=== PATIENT | female | born 1965 | race Caucasian/White ===

== ENCOUNTER → 2018-02-17 11:01 | Outpatient (CLI) | payer OTHER, SELFPAY ==
[2018-02-17 11:34] LABS: Add Manual Diff / Slide Review NO; Basophils Percent Auto 0.2 % (0-2); Eosinophils Percent Auto 1.3 % (2-4); Hematocrit 46.8 % (36-46); Lymphocytes Percent Auto 27.1 % (25-40); Mean Corpuscular HGB Conc 34.1 % (30-36); Mean Corpuscular Volume 87.8 fL (80-100); Monocytes Percent Auto 6.2 % (3-14); Neutrophils Absolute Auto 4500 /uL (3000-5900); Neutrophils Percent Auto 65.2 % (50-75); Platelet Count 287 X10^3/uL (150-400); Red Blood Cell Count 5.33 X10^6/uL (4.0-5.2); Red Cell Distribution Width 13.4 % (11.6-14.8); White Blood Cell Count 6.9 X10^3/uL (4.5-11.0)
[2018-02-17 11:58] LABS: Alanine Aminotransferase 34 IU/L (9-52); Albumin 4.1 g/dL (3.5-5.0); Albumin Globulin Ratio 1.4 (1.0-2.8); Alkaline Phosphatase 62 U/L (38-126); Aspartate Aminotransferase 24 IU/L (14-36); BUN Creatinine Ratio 18.6 (6-22); Bilirubin Total 0.6 mg/dL (0.2-1.3); Blood Urea Nitrogen 13 mg/dL (7-17); Carbon Dioxide 32 mmol/L (22-32); Chloride 106 mmol/L (98-107); Estimated Glomerular Filt Rate > 60.0 mL/min (>60); Glucose 103 mg/dL (70-100); HEMOLYSIS < 15 (0-50); Potassium 3.8 mmol/L (3.4-5.1); Sodium 144 mmol/L (137-145); Total Protein 7.1 g/dL (6.3-8.2)
[2018-02-18 15:52] LABS: Cancer Antigen 27.29 9 U/mL (< 38)
== END ==
PROVIDERS: Family Provider Family Medicine; PCP Family Medicine; Visit Provider Nurse Practitioner Gerontology
DX: Z08 Encounter for follow-up examination after completed treatment for malignant neoplasm (principal); Z85.3 Personal history of malignant neoplasm of breast
CPT/HCPCS: 36415; 80053; 85025; 86300

== ENCOUNTER → 2018-03-05 09:25 | Outpatient (CLI) | payer OTHER, SELFPAY ==
[2018-03-05 11:15] LABS: BUN Creatinine Ratio 13.8 (6-22); Blood Urea Nitrogen 11 mg/dL (7-17); Calcium 9.1 mg/dL (8.4-10.2); Carbon Dioxide 33 mmol/L (22-32); Chloride 102 mmol/L (98-107); Estimated Glomerular Filt Rate > 60.0 mL/min (>60); Glucose 106 mg/dL (70-100); HEMOLYSIS < 15 (0-50); Potassium 3.4 mmol/L (3.4-5.1); Sodium 144 mmol/L (137-145)
== END ==
PROVIDERS: PCP Family Medicine; Visit Provider Family Medicine
DX: L02.91 Cutaneous abscess, unspecified (principal)
CPT/HCPCS: 36415; 80048

== ENCOUNTER → 2018-04-02 08:21 | Outpatient (CLI) | payer OTHER, SELFPAY ==
[2018-04-02 08:33] LABS: Bacteria Urine None Seen; RBC Urine None Seen (0-5/HPF)
[2018-04-02 09:00] LABS: Appearance Urine UA CLOUDY; Bilirubin Urine UA NEGATIVE (NEGATIVE); Color Urine UA YELLOW; Glucose Urine UA NEGATIVE (Normal); Ketones Urine UA TRACE (NEGATIVE); Leukocyte Esterase Urine UA NEGATIVE (NEGATIVE); Nitrite Urine UA NEGATIVE (Negative); Occult Blood Urine UA TRACE-LYSED (Negative); Protein Urine UA TRACE (Negative); Specific Gravity Urine UA 1.025 (1.000-1.035); pH Urine UA 5.5 (4.5-8.0)
[2018-04-02 09:04] LABS: Culture Indicated Urine Cult Not Indicated; Squamous Epithelial Cell Urine 5-10 /HPF; WBC Urine 5-10/HPF (0-5/HPF)
== END ==
PROVIDERS: Obstetrics & Gynecology; Family Provider Family Medicine; PCP Family Medicine; Visit Provider Family Medicine
DX: N39.0 Urinary tract infection, site not specified (principal)
CPT/HCPCS: 81001

== ENCOUNTER → 2018-04-10 14:47 | Outpatient (CLI) | payer OTHER, SELFPAY ==
[2018-04-10 15:47] LABS: Cancer Antigen 125 6 U/mL (0-35)
== END ==
PROVIDERS: PCP Family Medicine; Visit Provider Obstetrics & Gynecology
DX: R14.0 Abdominal distension (gaseous) (principal)
CPT/HCPCS: 86304

== ENCOUNTER → 2018-06-23 11:11 | Outpatient (CLI) | payer OTHER, SELFPAY ==
[2018-06-23 11:45] LABS: Hemoglobin A1C% w Est Avg Glu 5.4 % (4.0-6.0)
[2018-06-23 12:35] LABS: Free T3, Triiodothyronine Free 3.13 pg/mL (2.77-5.27); Free T4, Direct Thyroxine 1.57 ng/dL (0.78-2.19)
[2018-06-23 12:49] LABS: Thyroid Stimulating Hormone 0.41 uIU/mL (0.47-4.68)
[2018-06-25 14:11] LABS: Thyroid Peroxidase Antibodies 1 IU/mL (< 9)
[2018-06-27 08:12] LABS: Triiodothyronine T3 Reverse 17 ng/dL (8-25)
== END ==
PROVIDERS: Family Provider Family Medicine; PCP Family Medicine; Visit Provider Family Medicine
DX: E03.9 Hypothyroidism, unspecified (principal)
CPT/HCPCS: 36415; 83036; 84439; 84443; 84481; 84482; 86376

== ENCOUNTER → 2018-10-10 13:12 | Outpatient (CLI) | payer OTHER, SELFPAY ==
[2018-10-10 13:32] LABS: Add Manual Diff / Slide Review NO; Basophils Absolute Auto 100 /uL (0-100); Basophils Percent Auto 1.3 % (0-2); Eosinophils Absolute Auto 100 /uL (0-450); Eosinophils Percent Auto 1.3 % (2-4); Hematocrit 48.3 % (36-46); Hemoglobin 16.1 g/dL (12.0-16.0); Lymphocytes Absolute Auto 2500 /uL (1100-4500); Lymphocytes Percent Auto 31.8 % (25-40); Mean Corpuscular HGB Conc 33.4 % (30-36); Mean Corpuscular Hemoglobin 29.5 PG (26-34); Mean Corpuscular Volume 88.5 fL (80-100); Monocytes Absolute Auto 500 /uL (0-900); Monocytes Percent Auto 6.4 % (3-14); Neutrophils Absolute Auto 4700 /uL (1500-7000); Neutrophils Percent Auto 59.2 % (50-75); Platelet Count 325 X10^3/uL (150-400); Red Blood Cell Count 5.45 X10^6/uL (4.0-5.2); Red Cell Distribution Width 13.9 % (11.6-14.8); White Blood Cell Count 7.9 X10^3/uL (4.5-11.0)
[2018-10-10 13:50] LABS: Alanine Aminotransferase 29 IU/L (9-52); Albumin 4.4 g/dL (3.5-5.0); Albumin Globulin Ratio 1.4 (1.0-2.8); Alkaline Phosphatase 74 U/L (38-126); Aspartate Aminotransferase 26 IU/L (14-36); BUN Creatinine Ratio 18.9 (6-22); Bilirubin Total 0.3 mg/dL (0.2-1.3); Blood Urea Nitrogen 17 mg/dL (7-17); Calcium 9.4 mg/dL (8.4-10.2); Carbon Dioxide 30 mmol/L (22-32); Chloride 98 mmol/L (98-107); Cholesterol 253 mg/dL (140-199); Estimated Glomerular Filt Rate > 60.0 mL/min (>60); Globulin 3.1 g/dL (1.7-4.1); Glucose 105 mg/dL (70-100); HDL Cholesterol 48 mg/dL (40-60); HEMOLYSIS < 15 (0-50); LDL Cholesterol Calculated 169 mg/dL (<100); Potassium 4.2 mmol/L (3.4-5.1); Sodium 138 mmol/L (137-145); Total Protein 7.5 g/dL (6.3-8.2); Triglycerides 180 mg/dL (35-150)
[2018-10-10 14:20] LABS: TSH w/ Reflex to FT4 0.49 uIU/mL (0.47-4.68)
== END ==
PROVIDERS: PCP Family Medicine; Visit Provider Family Medicine
DX: E03.9 Hypothyroidism, unspecified (principal); I10 Essential (primary) hypertension; K76.0 Fatty (change of) liver, not elsewhere classified
CPT/HCPCS: 36415; 80053; 80061; 84443; 85025

== ENCOUNTER → 2018-10-22 09:00 | Outpatient (CLI) | payer OTHER, SELFPAY ==
--- NOTE | 2018-10-22 | DI.MG.S_ITS ---
BILATERAL DIGITAL SCREENING MAMMOGRAM 3D/2D WITH CAD: 10/22/2018 CLINICAL: Routine screening. Personal history of left breast cancer. Family history of breast cancer. Comparison is made to exams dated: 10/15/2016 mammogram, 10/12/2015 mammogram, 09/01/2014 mammogram, 11/06/2013 mammogram, and 07/07/2013 mammogram - [facility]. The tissue of both breasts is predominantly fatty. Current study was also evaluated with a Computer Aided Detection (CAD) system. There is a 5 mm round mass with a circumscribed margin in the right breast at 1 o'clock posterior depth. Biopsy marker in place in the right breast 3 o'clock position posterior depth. No other significant masses, calcifications, or other findings are seen in either breast. IMPRESSION: INCOMPLETE: NEEDS ADDITIONAL IMAGING EVALUATION The 5 mm round mass in the right breast is indeterminate. A diagnostic mammogram and ultrasound is recommended. This exam was interpreted at Station ID: [id number]. NOTE: For mammograms, a report in lay terms will be sent to the patient. Approximately 15% of breast malignancies will not be visualized mammographically. In the management of a palpable breast mass, a negative mammogram must not discourage biopsy of a clinically suspicious lesion. Electronically Signed By: Ambar barba/:10/22/2018 11:15:01 letter sent: Additional Imaging Needed ACR BI-RADS Category 0: Incomplete 3340F
== END ==
PROVIDERS: PCP Family Medicine; Visit Provider Family Medicine
DX: Z12.31 Encounter for screening mammogram for malignant neoplasm of breast (principal); Z85.3 Personal history of malignant neoplasm of breast; Z80.3 Family history of malignant neoplasm of breast
CPT/HCPCS: 77063; 77067

== ENCOUNTER → 2018-10-28 10:00 | Oncology outpatient (ONC) | payer OTHER, SELFPAY ==
[2018-02-18 10:02] VITALS: BP 136/86; PULSE 98; RESP 17; TEMP 37.3; O2SAT 98
--- NOTE | 2018-02-18 10:03 | ONC.PN ---
PN -Subjective Interval history: Diagnosis: Breast cancer on the left. T1 C N0, 1.3 cm ER/VA negative her 2 positive Previous treatment: 1. Lumpectomy and sentinel node biopsy in September 2011 2. Adjuvant chemotherapy with Taxol and Herceptin. 3. Adjuvant radiation. Interval history: The patient is a 52-year-old woman who is seen today in follow-up. She has history of left-sided ER/VA negative her 2 positive breast cancer that is previously been treated with lumpectomy and radiation with adjuvant Taxol and Herceptin. She completed all of her therapy in 2012. Since then, she has been feeling generally well. Today, she is bothered by some changes in the right breast. The been present for a few months. She notes some itching particularly around the nipple. She has a feeling of heaviness in the breast in some swelling but has not felt any discrete lump. She has not noted any axillary adenopathy. She is not aware of any changes in the left breast. Otherwise, she feels well. She denies any new aches or pains. No shortness of breath or cough. No GI complaints. Her past medical history is notable for prior thought right ectopy she her hysterectomy for fibroids. She did have a DVT during her chemotherapy. Her family history is notable for an aunt on her father's side had breast cancer. There is no other family history of malignancy. 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 She does remain active though. Home Medications and Allergies Home Medications Medication Instructions Recorded Confirmed Type albuterol sulfate [Ventolin HFA] 2 puff INH Q4HP PRN #1 inh 08/01/16 01/01/18 Rx chlorthalidone 25 mg PO QDAY #15 tab 04/17/17 01/01/18 Rx amlodipine 10 mg PO QDAY #90 tab 05/01/17 01/01/18 Rx ondansetron HCl 4 mg PO Q6HP PRN #30 tab 05/22/17 01/01/18 Rx fluticasone 1 spray INTRANASAL BID #16 gm 05/27/17 01/01/18 Rx metoprolol tartrate 50 mg PO BID #180 tab 06/26/17 01/01/18 Rx beclomethasone dipropionate [Qvar] 1 puff INH BID #1 inh 08/19/17 01/01/18 Rx omeprazole 20 mg PO QDAY #30 cap 08/20/17 01/01/18 Rx venlafaxine 75 mg tablet 112.5 mg PO QDAY tab 12/02/17 01/01/18 History spironolactone 100 mg tablet 100 mg PO DAILY #30 tab 01/01/18 Rx levothyroxine 88 mcg PO QDAY #90 tab 01/28/18 Rx clonazepam 1 mg tablet 1 mg PO TID #90 tab 02/03/18 Rx doxepin 25 mg capsule 25 mg PO HS #90 cap 02/03/18 Rx Allergies Allergy/AdvReac Type Severity Reaction Status Date / Time codeine [CODEINE] Allergy Mild itching Verified 01/01/18 13:37 and hives hydrocodone [HYDROCODONE] Allergy Mild itching Verified 01/01/18 13:37 and hives fluticasone [FLUTICASONE] AdvReac Mild irritabilit Verified 01/01/18 13:37 y metoclopramide AdvReac Mild agitated Verified 01/01/18 13:37 [METOCLOPRAMIDE] zolpidem [ZOLPIDEM] AdvReac Mild agitated Verified 01/01/18 13:37 Exam - Constitutional positive no acute distress, positive average body habitus - Routine HEENT Exam Head: Present: normocephalic, atraumatic Eye: Present: EOMI, PERRL. Absent: conjunctival icterus ENT: Present: mucous membranes moist, oropharynx clear - Routine Neck Exam Present: supple. Absent: lymphadenopathy - Routine Chest/Breast/Axilla Exam Comments: Breast exam shows a well-healed incision on the left breast just superior to the nipple. There is some scar tissue in induration in that area but no discrete masses. On the right breast, she does have some fibrocystic changes but no dominant mass. There is no obvious skin lesions. The breasts appear to be symmetric in size. There is no axillary adenopathy on either side. - Routine Respiratory Exam Present: Clear to auscultation bilaterally. Absent: rales, wheezes - Routine Cardiovascular Exam Present: RRR, S1, S2. Absent: murmur - Routine Abdominal Exam Present: soft, normoactive bowel sounds. Absent: tenderness, mass - Routine Extremities Exam Absent: cyanosis, clubbing, edema - Routine Skin Exam Present: intact. Absent: petechiae, rash - Routine Neurological Exam Present: alert, oriented X3 - Routine Psychiatric Exam Present: normal affect, normal thought process Results - Imaging Additional studies: Procedures Incision with removal of foreign body or device from skin and subcutaneous tissue (04/24/12) Laparoscopic removal of both ovaries and tubes at same operative episode (08/27/11) Laparoscopic supracervical hysterectomy [LSH] (08/27/11) Assessment and Plan (1) H/O malignant neoplasm of breast Problem details: This is a 52-year-old woman with the history of stage I her 2 positive breast cancer. She is about 7 years out from her diagnosis. She has no obvious recurrence. 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 She has some changes in sensation in her right breast now. I do not feel any obvious physical exam correlate. Never the less, she is due for a mammogram and will get that scheduled for her. She will return to clinic here for follow-up after that. Assuming that that is negative, I think probably annual follow-up would be indicated. Current visit: Yes Status: Acute
--- NOTE | 2018-02-18 13:06 | ONC.NAV ---
Description: New Pt Intro Activity: Met briefly with pt after her provider visit to introduce myself as the Pt Ru/FURNITURE DIPPER, offer services card, and assess immediate needs. Pt states that she is 5-years out of treatment, and is here to have her other breast checked, due to new/unusual symptoms. She declines the need for any assistance at this time. FURNITURE DIPPER encouraged her to reach out during any future appointments should she need assistance at that time.
[2018-10-28 10:18] VITALS: BP 144/95; PULSE 85; RESP 16; TEMP 36.8; O2SAT 97
--- NOTE | 2018-10-28 10:39 | ONC.PN ---
PN -Subjective Interval history: Diagnosis: Breast cancer on the left. T1 C N0, 1.3 cm ER/IN negative her 2 positive Previous treatment: 1. Lumpectomy and sentinel node biopsy in September 2011 2. Adjuvant chemotherapy with Taxol and Herceptin. 3. Adjuvant radiation. Interval history: The patient is a 52-year-old woman who is seen today in follow-up. Since her last visit here, she has been feeling generally well. She did have some discomfort in itching in the breast at her last visit. A mammogram was recommended but she did not have it done in till earlier this month. Since the procedure, she has had some pain and swelling in the right breast but has not felt any mass. she denies any fevers chills or sweats. Strength and energy level have been low but stable. She denies any shortness of breath. She has not noticed any adenopathy. She denies any other changes in her health. Her past medical history is notable for prior thought right ectopy she her hysterectomy for fibroids. She did have a DVT during her chemotherapy. Her family history is notable for an aunt on her father's side had breast cancer. There is no other family history of malignancy. 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 She does remain active though. - Patient Self-Reported Symptoms SR eye issues: Vision changes SR respiratory issues: Cough, Coughing blood, Shortness of breath, Difficulty breathing, Mucous SR Skin issues: Skin rash or itching SR Neuro issues: Headache, Lightheaded/dizzy, Seizures or convulsions, Numbness or tingling, Tremors or shaking, Difficulty balancing Home Medications and Allergies Home Medications Medication Instructions Recorded Confirmed Type albuterol sulfate [Ventolin HFA] 2 puff INH Q4HP PRN #1 inh 08/01/16 09/17/18 Rx amlodipine 10 mg PO QDAY #90 tab 05/01/17 09/17/18 Rx cholecalciferol (vitamin D3) 2,000 unit PO DAILY 02/18/18 09/17/18 History [Vitamin D3] melatonin 10 mg PO BEDTIME PRN 02/18/18 09/17/18 History omeprazole 20 mg PO PRN PRN 02/18/18 09/17/18 History meloxicam 7.5 mg tablet 7.5 mg PO DAILY #30 tab 03/25/18 09/17/18 Rx gabapentin 100 mg capsule See Rx Instructions PO DAILY #90 04/18/18 09/17/18 Rx cap metoprolol tartrate 50 mg PO BID #180 tab 06/25/18 09/17/18 Rx doxepin 25 mg capsule 25 mg PO HS #90 cap 08/06/18 09/17/18 Rx venlafaxine 75 mg tablet 112.5 mg PO QDAY #135 tab 09/15/18 09/17/18 Rx chlorthalidone 25 mg tablet 12.5 mg PO PRN PRN #15 tab 10/03/18 Rx clonazepam 1 mg tablet 1 mg PO TID #90 tab 10/22/18 Rx levothyroxine 88 mcg tablet 88 mcg PO QDAY #90 tab 10/23/18 Rx Allergies Allergy/AdvReac Type Severity Reaction Status Date / Time codeine [CODEINE] Allergy Mild itching Verified 06/23/18 10:33 and hives hydrocodone [HYDROCODONE] Allergy Mild itching Verified 06/23/18 10:33 and hives fluticasone [FLUTICASONE] AdvReac Mild irritabilit Verified 06/23/18 10:33 y metoclopramide AdvReac Mild agitated Verified 06/23/18 10:33 [METOCLOPRAMIDE] zolpidem [ZOLPIDEM] AdvReac Mild agitated Verified 06/23/18 10:33 Exam Vital signs: Vital Signs Temp Pulse Resp BP Pulse Ox 10/28/18 10:18 98.3 F 85 16 144/95 H 97 Intake and Output 10/27/18 10/28/18 10/28/18 23:59 07:59 15:59 Other: Weight 87.9 kg Patient Weight 10/28/18 23:59 Weight 87.9 kg - Constitutional positive no acute distress, positive average body habitus - Routine HEENT Exam Head: Present: normocephalic, atraumatic - Routine Chest/Breast/Axilla Exam Axillae: Absent: lymphadenopathy Comments: Limited exam of the breast shows that she has a well-healed incision on the left breast. There are no suspicious masses. the right breast is tender to palpation but I do not feel any discrete masses. There is no thickening or erythema the skin. No axillary adenopathy. - Routine Respiratory Exam Present: Clear to auscultation bilaterally. Absent: rales, wheezes - Routine Cardiovascular Exam Present: RRR, S1, S2. Absent: murmur - Routine Abdominal Exam Present: soft, normoactive bowel sounds. Absent: tenderness, organomegaly, mass - Routine Neurological Exam Present: alert, oriented X3 - Routine Psychiatric Exam Present: normal affect, normal thought process Results - Imaging Additional studies: Procedures Incision with removal of foreign body or device from skin and subcutaneous tissue (04/24/12) Laparoscopic removal of both ovaries and tubes at same operative episode (08/27/11) Laparoscopic supracervical hysterectomy [LSH] (08/27/11) Assessment and Plan (1) H/O malignant neoplasm of breast Problem details: This is a 52-year-old woman with the history of stage I her 2 positive breast cancer. She is about 7 years out from her diagnosis. She has no obvious recurrence. 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 Her recent mammogram showed an indeterminate 5 mm area in the right breast. She is scheduled for additional views and an ultrasound on November 07. She will return to clinic in about 3 weeks for follow-up. If her imaging suggests that this is benign, I think we can probably go to annual follow-up after that. If on the other hand additional testing is needed will arrange for follow-up as required. Current visit: No Status: Chronic
--- NOTE | 2019-05-13 08:42 | ONC.SCHED ---
patient called 05/11/19, cancelled her 6 month follow up with Dr Garcia/having an ultrasound and would call and get back on his schedule if the results were not OK. (note to Dr Garcia to look at her u/s results)
--- NOTE | 2019-05-20 16:01 | ONC.SCHED ---
per message/task note between Dr Garcia and myself, he requests she be seen again in October. I left a voice mail today for this patient to call and get scheduled for an annual appointment in October 2019.
== END ==
PROVIDERS: Family Provider Family Medicine; PCP Family Medicine
DX: Z08 Encounter for follow-up examination after completed treatment for malignant neoplasm (principal); Z85.3 Personal history of malignant neoplasm of breast; Z86.718 Personal history of other venous thrombosis and embolism; F17.200 Nicotine dependence, unspecified, uncomplicated
CPT/HCPCS: 99214; 99215

== ENCOUNTER → 2018-11-07 08:55 | Outpatient (CLI) | payer OTHER, SELFPAY ==
--- NOTE | 2018-11-07 08:57 | DI.US.S_ITS ---
LIMITED ULTRASOUND OF RIGHT BREAST: 11/07/2018 CLINICAL: Patient returns today to evaluate a density in the right breast. Comparison is made to exams dated: 11/07/2018 mammogram, 10/22/2018 mammogram, 10/15/2016 mammogram, 10/12/2015 mammogram, 09/01/2014 mammogram, and 11/06/2013 mammogram - [facility]. Real-time and Doppler ultrasound of the right breast 1 o'clock region were performed. Hatfield scale images of the real-time examination were reviewed. Targeted ultrasound of the right breast demonstrates a 0.4 x 0.3 x 0.6 cm oval circumscribed bilobed probable complicated cyst in the right breast at 1:00 position 5 cm from the nipple, which demonstrates low level internal echogenic foci but no vascularity on Doppler ultrasound. IMPRESSION: PROBABLY BENIGN 0.6 cm probable complicated cyst in the right breast at 1:00 position 5 cm from the nipple. A followup mammogram and targeted right breast ultrasound in 6 months is recommended to demonstrate stability. The patient is advised to monitor her breasts and to return sooner for re-evaluation should she feel anything grow or change. This exam was interpreted at Station ID: [id number]. Electronically Signed By: Maycol Patel M.D. ecl/:11/07/2018 12:51:22 copy to: Marilin Johnson copy to: CRISTIAN BRASHER letter sent: Followup Recommended Ultrasound BI-RADS: 3 Probably benign
--- NOTE | 2018-11-07 08:57 | DI.MG.S_ITS ---
UNILATERAL RIGHT DIGITAL DIAGNOSTIC MAMMOGRAM 3D/2D WITH ADDITIONAL VIEWS POST LUMPECTOMY: 11/07/2018 CLINICAL: Additional evaluation requested from prior study. Comparison is made to exams dated: 10/22/2018 mammogram, 10/15/2016 mammogram, and 10/12/2015 mammogram - [facility]. There are scattered fibroglandular elements in right breast. Previously identified 5 mm round mass with a circumscribed margin in the right breast at 1 o'clock posterior depth on comparison screening mammograms of 10/22/2018 persists with additional views. There is redemonstration of a biopsy marker within the left breast. IMPRESSION: INCOMPLETE: NEEDS ADDITIONAL IMAGING EVALUATION Previously identified 5 mm round mass with a circumscribed margin in the right breast at 1 o'clock posterior depth on comparison screening mammograms of 10/22/2018 persists with additional views. A targeted ultrasound is recommended for further evaluation, and will be performed immediately following this exam. This exam was interpreted at Station ID: [id number]. NOTE: For mammograms, a report in lay terms will be sent to the patient. Approximately 15% of breast malignancies will not be visualized mammographically. In the management of a palpable breast mass, a negative mammogram must not discourage biopsy of a clinically suspicious lesion. Electronically Signed By: Maycol Patel M.D. ecl/:11/07/2018 10:04:58 copy to: Marilin Johnson copy to: CRISTIAN APONTE BI-RADS Category 0: Incomplete 3340F
== END ==
PROVIDERS: Family Provider Family Medicine; PCP Family Medicine; Visit Provider Family Medicine
DX: R92.8 Other abnormal and inconclusive findings on diagnostic imaging of breast (principal); N63.12 Unspecified lump in the right breast, upper inner quadrant; Z85.3 Personal history of malignant neoplasm of breast
CPT/HCPCS: 76642; 77065; G0279

== ENCOUNTER → 2018-12-03 06:57 | Outpatient (CLI) | payer OTHER, SELFPAY ==
--- NOTE | 2018-12-03 | DI.US.S_ITS ---
PROCEDURE: US CAROTID DOPPLER BI INDICATIONS: AMAUROSIS FUGAX TECHNIQUE: Color and pulse Doppler interrogation was performed of both carotid systems, with image documentation and velocity measurements. COMPARISON: None. FINDINGS: Stenosis calculations are based on SRU (Society of Radiologists in Ultrasound) criteria. Right side: Brachial blood pressure: 130/88 mm Hg. Common carotid artery peak systolic velocity: 71 cm/sec. Internal carotid artery peak systolic velocity: 59 cm/sec. Internal carotid artery end diastolic velocity: 25 cm/sec. External carotid artery peak systolic velocity: 91 cm/sec. ICA/CCA peak systolic ratio: 0.8. Hatfield scale imaging description: Mild intimal thickening. Percent internal carotid artery stenosis: Less than 50%. Vertebral artery: Flow direction is antegrade. Left side: Brachial blood pressure: 130/86 mm Hg. Common carotid artery peak systolic velocity: 98 cm/sec. Internal carotid artery peak systolic velocity: 80 cm/sec. Internal carotid artery end diastolic velocity: 31 cm/sec. External carotid artery peak systolic velocity: 106 cm/sec. ICA/CCA peak systolic ratio: 0.8. Hatfield scale imaging description: Mild intimal wall thickening. Percent internal carotid artery stenosis: Less than 50%. Vertebral artery: Flow direction is antegrade. IMPRESSION: Less than 50% bilateral internal carotid artery stenosis. Dictated by: Daryl Aguirre [facility] Interpreted: Preet Varela MD on 12/03/2018 at 9:13 Approved by: Preet Varela M.D. on 12/04/2018 at 8:49
== END ==
PROVIDERS: Family Provider Family Medicine; PCP Family Medicine; Visit Provider Ophthalmology
DX: I65.23 Occlusion and stenosis of bilateral carotid arteries (principal)
CPT/HCPCS: 93880

== ENCOUNTER → 2019-03-19 12:13 | Outpatient (CLI) | payer OTHER, SELFPAY ==
--- NOTE | 2019-03-19 12:14 | DI.US.S_ITS ---
PROCEDURE: US PERIPH VENOUS UP EXTREM MYA INDICATIONS: DEEP VEIN THROMBOSIS TECHNIQUE: Real-time imaging, as well as color and pulse Doppler interrogation, was performed of both upper extremity deep veins from the inferior neck to the antecubital fossa. COMPARISON: None. FINDINGS: Right: The internal jugular veins, visualized portions of the subclavian veins, axillary veins, and brachial veins are free of intraluminal thrombus. Where physically possible, the veins are normally compressible. Color and pulse Doppler demonstrate normal intraluminal flow, with expected phasicity and pulsatility. Additional scanning of the cephalic and basilic veins of the superficial system demonstrate normal compressibility, without thrombus. Left: The internal jugular veins, visualized portions of the subclavian veins, axillary veins, and brachial veins are free of intraluminal thrombus. Where physically possible, the veins are normally compressible. Color and pulse Doppler demonstrate normal intraluminal flow, with expected phasicity and pulsatility. Additional scanning of the cephalic and basilic veins of the superficial system demonstrate normal compressibility, without thrombus. IMPRESSION: No DVT found. Dictated by: Preet Varela M.D. on 03/19/2019 at 13:32 Approved by: Preet Varela M.D. on 03/19/2019 at 13:32
== END ==
PROVIDERS: Family Provider Family Medicine; PCP Family Medicine; Visit Provider Family Medicine
DX: I82.629 Acute embolism and thrombosis of deep veins of unspecified upper extremity (principal)
CPT/HCPCS: 93970

== ENCOUNTER → 2019-05-11 09:33 | Outpatient (CLI) | payer OTHER, SELFPAY ==
--- NOTE | 2019-05-11 09:36 | DI.MG.S_ITS ---
UNILATERAL RIGHT DIGITAL DIAGNOSTIC MAMMOGRAM 3D/2D SHORT-TERM FOLLOW-UP: 05/11/2019 CLINICAL: Patient returns for a 6 month follow up of the right breast. Comparison is made to exams dated: 11/07/2018 mammogram, 10/22/2018 mammogram, 10/15/2016 mammogram, 11/07/2018 ultrasound, and 10/12/2015 mammogram - [facility]. There are scattered fibroglandular elements in right breast. There is a 0.4 cm round equal density focal asymmetry with a circumscribed margin in the right breast at 1 o'clock middle depth. This is more prominent. No other significant masses or calcifications are seen in the breast. A right breast biopsy clip is present. IMPRESSION: INCOMPLETE: NEEDS ADDITIONAL IMAGING EVALUATION Focal asymmetry in the right breast is indeterminate. A targeted ultrasound is recommended and will immediately follow. This exam was interpreted at Station ID: [id number]. NOTE: For mammograms, a report in lay terms will be sent to the patient. Approximately 15% of breast malignancies will not be visualized mammographically. In the management of a palpable breast mass, a negative mammogram must not discourage biopsy of a clinically suspicious lesion. Electronically Signed By: Mayo Gutiérrez M.D. slc/:05/11/2019 11:37:06 copy to: Marilin Johnson copy to: CRISTIAN APONTE BI-RADS Category 0: Incomplete 3340F
--- NOTE | 2019-05-11 09:36 | DI.US.S_ITS ---
LIMITED ULTRASOUND OF RIGHT BREAST: 05/11/2019 CLINICAL: 6 month follow-up of cysts. Comparison is made to exams dated: 05/11/2019 mammogram, 11/07/2018 ultrasound, 11/07/2018 mammogram, 10/22/2018 mammogram, and 10/15/2016 mammogram - [facility]. Color flow and real-time ultrasound of the right breast 1 o'clock region were performed. Hatfield scale images of the real-time examination were reviewed. There is a stable 0.5 cm x 0.5 cm x 0.3 cm bilobed cyst in the right breast at 1 o'clock middle depth 5 cm from the nipple. This oval cyst is hypoechoic with a well-defined boundary. This correlates with mammography findings. Color flow imaging demonstrates that there is no vascularity present. IMPRESSION: PROBABLY BENIGN Stable 0.5 cm bilobed cyst in the right breast is consistent with a complicated cyst and is probably benign. A follow-up mammogram and an ultrasound in 6 months is recommended to demonstrate stability. Exam findings were conveyed to the patient by the special makeup fx artist instructor. This exam was interpreted at Station ID: [id number]. Electronically Signed By: Mayo Gutiérrez M.D. slc/:05/11/2019 12:06:04 copy to: Marilin Johnson copy to: CRISTIAN BRASHER letter sent: Followup Recommended Ultrasound BI-RADS: 3 Probably benign
== END ==
PROVIDERS: PCP Family Medicine; Visit Provider Family Medicine
DX: R92.8 Other abnormal and inconclusive findings on diagnostic imaging of breast (principal); N60.01 Solitary cyst of right breast; Z85.3 Personal history of malignant neoplasm of breast
CPT/HCPCS: 76642; 77065; G0279

== ENCOUNTER 2019-07-13 08:10 | Emergency (ER) | payer OTHER, SELFPAY ==
[2019-07-13 08:25] VITALS: BP 172/98; PULSE 127; RESP 22; TEMP 36.8; O2SAT 97; BMI 29.9
--- NOTE | 2019-07-13 08:45 | ED_ITS ---
HPI - Chest Pain General Chief Complaint: Chest Pain Stated Complaint: dehydration, unable to urinate,diarrhea Time Seen by Provider: 07/13/19 08:22 Source: patient Mode of arrival: Ambulatory Limitations: no limitations History of Present Illness HPI narrative: Patient is a 53-year-old female who presents with a variety of complaints. She is currently quite anxious she is going through divorce after 31 years. She by law needs to stay in the house however being in the house causes her quite a bit of anxiety she stayed in her car multiple times. She has about 5 episodes of diarrhea daily she has intermittent episodes of chest pain which she relates to her anxiety. She does not eat or drink anything in fact she has not urinated since yesterday she noted to be tachycardic is in the 120s in the emergency department. She tried to see her PCP for anxiety medication however she was told she needs to go to the emergency department. She denies any abdominal pain. She denies any dizziness lightheadedness syncope or passing out. MD complaint: chest pain Onset (ago): week(s) Duration: intermittent Related Data Home Medications Medication Instructions Recorded Confirmed cholecalciferol (vitamin D3) 2,000 unit PO DAILY 02/18/18 05/28/19 [Vitamin D3] melatonin 10 mg PO BEDTIME PRN 02/18/18 05/28/19 omeprazole 20 mg PO PRN PRN 02/18/18 05/28/19 aspirin 81 mg tablet,delayed 81 mg PO DAILY 03/16/19 05/28/19 release amlodipine 10 mg PO DAILY 07/13/19 07/13/19 doxepin 25 mg PO BEDTIME 07/13/19 07/13/19 levothyroxine 88 mcg PO DAILY 07/13/19 07/13/19 Previous Rx's Medication Instructions Recorded chlorthalidone 25 mg tablet 12.5 mg PO PRN PRN #15 tab 10/03/18 venlafaxine 75 mg tablet 112.5 mg PO QDAY #135 tab 03/02/19 metoprolol tartrate 50 mg tablet 50 mg PO BID #180 tab 06/04/19 clonazepam 1 mg tablet 1 mg PO TID #90 tab 07/06/19 lorazepam [Ativan] 0.5 mg PO DAILY PRN #2 tab 07/13/19 Allergies Allergy/AdvReac Type Severity Reaction Status Date / Time atorvastatin Allergy Severe Anaphylaxis Verified 07/13/19 08:25 codeine [CODEINE] Allergy Mild itching Verified 07/13/19 08:25 and hives hydrocodone [HYDROCODONE] Allergy Mild itching Verified 07/13/19 08:25 and hives fluticasone [FLUTICASONE] AdvReac Mild irritabilit Verified 07/13/19 08:25 y metoclopramide AdvReac Mild agitated Verified 07/13/19 08:25 [METOCLOPRAMIDE] zolpidem [ZOLPIDEM] AdvReac Mild agitated Verified 07/13/19 08:25 Review of Systems Review of Systems ROS Unobtainable: All systems reviewed & are unremarkable except as noted in HPI and below Constitutional Constitutional: Reports anorexia, Denies body ache(s), Denies chills, Denies fatigue, Denies fever(s) and Reports poor appetite Eyes Eyes: Denies change in vision, Denies eye discharge, Denies irritation and Denies loss of vision ENT Ears, Nose, Mouth, and Throat: Denies change in voice, Denies neck pain and Denies sore throat Cardiovascular Cardiovascular: Denies chest pain, Denies irregular heart rhythm, Denies lightheadedness, Denies palpitations, Denies dyspnea, Denies dyspnea on exertion and Denies orthopnea Respiratory Respiratory: Denies cough, Denies dyspnea, Denies dyspnea on exertion and Denies wheezing Gastrointestinal Gastrointestinal: Reports as per HPI, Denies abdominal pain, Reports diarrhea, Reports nausea and Denies vomiting Genitourinary Genitourinary: Denies hematuria, Denies flank pain, Denies urinary incontinence and Denies urinary urgency Musculoskeletal Musculoskeletal: Denies neck pain Integumentary/Breasts Skin/Breast: Denies pruritus, Denies erythema, Denies rash and Denies wounds Neurologic Neurologic: Denies loss of vision Endocrine Endocrine: Denies fatigue and Denies palpitations Allergic/Immunologic Allergic/Immunologic: Denies wheezing Patient History Medical History Acquired hypothyroidism (Chronic 12/17/12) Anxiety (Chronic) Asthma (Chronic) Breast cancer (Resolved) Deep vein thrombosis (DVT) of upper extremity (Resolved 05/05/14) Depression (Chronic 05/05/14) DVT (deep venous thrombosis) (Chronic ~2011) Generalized anxiety disorder (Chronic) GERD (gastroesophageal reflux disease) (Chronic) H/O malignant neoplasm of breast (Chronic) Hirsutism (Chronic) Hypertension (Chronic) Hypothyroidism (Chronic) Ingrown hair (Chronic) Insomnia (Chronic) Intramural leiomyoma of uterus (Resolved) Kidney stones (Chronic) Kidney stones, calcium oxalate (Acute) 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) Posttraumatic stress disorder (Chronic 06/30/14) Pyelonephritis (Resolved) Seasonal allergic rhinitis (Chronic 10/29/14) Sleep apnea in adult (Chronic 12/13/14) Steatosis of liver (Chronic 03/07/15) Tobacco use disorder (Chronic 08/29/16) Surgical History History of lumpectomy History of third molar tooth extraction History of thyroidectomy History of ureter stent (Acute) Status post laparoscopic cholecystectomy Status post laparoscopic supracervical hysterectomy Status post tonsillectomy and adenoidectomy Social History Smoking Status: Current every day smoker quit status: considering quitting Smoking Status: Current every day smoker Exam Initial Vital Signs Initial Vital Signs: Vital Signs Temperature 98.3 F 07/13/19 08:25 Pulse Rate 127 H 07/13/19 08:25 Respiratory Rate 22 07/13/19 08:25 Blood Pressure 172/98 H 07/13/19 08:25 Pulse Oximetry 97 07/13/19 08:25 GENERAL: Very anxious middle-aged female HEENT: Head atraumatic,EOMI, pupils reactive, CARDIOVASCULAR: Tachycardic regular no murmur RESPIRATORY: Breath sounds equal bilaterally, no wheezes rales or rhonchi. ABDOMEN: Soft, nontender. Normoactive bowel sounds all 4 quadrants. No guarding or rebound. EXTREMITIES: Normal range of motion, no clubbing or edema. Neurovascularly intact NEUROLOGICAL: Alert and oriented x4.Normal gait and speech. Cranial nerves II through XII grossly intact. SKIN: Warm, dry, no laceration, no petechiae, no rashes or lesions. Course Orders Ordered: ED Orders 07/13/19 08:31 EKG-12 Lead Stat 07/13/19 08:45 Complete Blood Count AUTO DIFF Stat Comprehensive Metabolic Panel Stat Lipase Stat Partial Thromboplastin Time Stat Prothrombin Time INR Stat Troponin & CK Cardiac Panel Stat 07/13/19 11:42 Urine Microscopic Stat Discontinued Medications Sodium Chloride (Normal Saline 0.9%) 1,000 mls @ 1,000 mls/hr IV BOLUS ONE Stop: 07/13/19 09:43 Last Infusion: 07/13/19 11:27 Dose: 0 mls/hr Documented by: Admin: 07/13/19 10:02 Dose: 1,000 mls/hr Documented by: ROGERS Lorazepam (Ativan) 1 mg PO NOW ONE Stop: 07/13/19 09:59 Last Admin: 07/13/19 10:02 Dose: 1 mg Documented by: ROGERS Vital Signs Vital signs: Vital Signs - 8 hr 07/13/19 08:25 07/13/19 10:05 07/13/19 11:00 Temperature 98.3 F Pulse Rate 127 H 90 68 Respiratory Rate 22 18 18 Blood Pressure 172/98 H Blood Pressure [Right Arm] 170/90 H Pulse Oximetry 97 99 07/13/19 11:50 Temperature Pulse Rate 102 H Respiratory Rate 16 Blood Pressure 142/79 H Blood Pressure [Right Arm] Pulse Oximetry 95 MDM - Chest Pain Lab Data Attestation: I reviewed the patient's lab results. Result diagrams: 07/13/19 08:45 07/13/19 08:45 Labs: Lab Results 07/13/19 07/13/19 07/13/19 Range/Units 08:45 08:45 08:45 WBC 7.0 (4.5-11.0) X10^3/uL RBC 5.33 H (4.0-5.2) X10^6/uL Hgb 16.0 (12.0-16.0) g/dL Hct 46.9 H (36-46) % MCV 88.0 (80-100) fL MCH 30.1 (26-34) PG MCHC 34.2 (30-36) % RDW 13.4 (11.6-14.8) % Plt Count 280 (150-400) X10^3/uL Neut % (Auto) 65.2 (50-75) % Lymph % (Auto) 26.2 (25-40) % [place] % (Auto) 6.5 (3-14) % Eos % (Auto) 0.8 L (2-4) % Baso % (Auto) 1.3 (0-2) % Neut # (Auto) 4600 (5526-3668) /uL Lymph # (Auto) 1800 (7434-8352) /uL [place] # (Auto) 500 (0-900) /uL Eos # (Auto) 100 (0-450) /uL Baso # (Auto) 100 (0-100) /uL PT 11.6 (10.1-12.7) SECONDS INR 1.0 (0.9-1.3) APTT 35 (26.4-36.2) SECONDS Sodium 141 (137-145) mmol/L Potassium 4.0 (3.4-5.1) mmol/L Chloride 104 (98-107) mmol/L Carbon Dioxide 30 (22-32) mmol/L BUN 13 (7-17) mg/dL Creatinine 0.80 (0.52-1.04) mg/dL Estimated GFR > 60.0 (>60) mL/min BUN/Creatinine Ratio 16.3 (6-22) Glucose 127 H (70-100) mg/dL Calcium 9.3 (8.4-10.2) mg/dL Total Bilirubin 0.8 (0.2-1.3) mg/dL AST 30 (14-36) IU/L ALT 19 (<35) IU/L Alkaline Phosphatase 60 (38-126) U/L Total Creatine Kinase (30-135) U/L CK-MB (CK-2) CK-MB (CK-2) Rel Index Troponin I (0.01-0.034) ng/mL Total Protein 7.8 (6.3-8.2) g/dL Albumin 4.3 (3.5-5.0) g/dL Globulin 3.5 (1.7-4.1) g/dL Albumin/Globulin Ratio 1.2 (1.0-2.8) Lipase 93 (23-300) U/L Urine RBC (0-5/HPF) Urine WBC (0-5/HPF) Ur Squamous Epith Cells (0-5/HPF) Urine Bacteria (None) Ur Culture Indicated? 07/13/19 07/13/19 Range/Units 08:45 11:42 WBC (4.5-11.0) X10^3/uL RBC (4.0-5.2) X10^6/uL Hgb (12.0-16.0) g/dL Hct (36-46) % MCV (80-100) fL MCH (26-34) PG MCHC (30-36) % RDW (11.6-14.8) % Plt Count (150-400) X10^3/uL Neut % (Auto) (50-75) % Lymph % (Auto) (25-40) % [place] % (Auto) (3-14) % Eos % (Auto) (2-4) % Baso % (Auto) (0-2) % Neut # (Auto) (7873-3954) /uL Lymph # (Auto) (8648-9028) /uL Irion # (Auto) (0-900) /uL Eos # (Auto) (0-450) /uL Baso # (Auto) (0-100) /uL PT (10.1-12.7) SECONDS INR (0.9-1.3) APTT (26.4-36.2) SECONDS Sodium (137-145) mmol/L Potassium (3.4-5.1) mmol/L Chloride (98-107) mmol/L Carbon Dioxide (22-32) mmol/L BUN (7-17) mg/dL Creatinine (0.52-1.04) mg/dL Estimated GFR (>60) mL/min BUN/Creatinine Ratio (6-22) Glucose (70-100) mg/dL Calcium (8.4-10.2) mg/dL Total Bilirubin (0.2-1.3) mg/dL AST (14-36) IU/L ALT (<35) IU/L Alkaline Phosphatase (38-126) U/L Total Creatine Kinase 47 (30-135) U/L CK-MB (CK-2) TNP CK-MB (CK-2) Rel Index TNP Troponin I < 0.012 (0.01-0.034) ng/mL Total Protein (6.3-8.2) g/dL Albumin (3.5-5.0) g/dL Globulin (1.7-4.1) g/dL Albumin/Globulin Ratio (1.0-2.8) Lipase (23-300) U/L Urine RBC 0-1/hpf (0-5/HPF) Urine WBC 5-10/hpf H (0-5/HPF) Ur Squamous Epith Cells 10-30 /hpf H (0-5/HPF) Urine Bacteria Many (>30) H (None) Ur Culture Indicated? Cult not indicated Urine Dip Bedside Urine Glucose Negative Bedside Urine Bilirubin + 1 Bedside Urine Ketone ++ 40 Urine Specific [place] 1.015 Bedside Urine Occult Blood +/- Bedside Urine pH 6.5 Bedside Urine Protein +/- 15 Bedside Urine Urobilinogen +/- 1mg Bedside Urine Nitrite - Negative Bedside Urine Leukocytes + 70 Esterase ECG Data Attestation: I personally reviewed and interpreted this ECG as follows: Prior ECG tracings: available for review Interpretation: Sinus tachycardia rate [address] elevation depression or T-wave inversion no Q-waves noted similar to previous EKGs MDM Narrative Medical decision making narrative: Patient is obviously anxious with clear stressors at home. All heart rate improved with Ativan and IV fluids. She urinated in the ED without any difficulty. Blood work is overall reassuring. I discussed with her the need for counseling and therapy along with possible long- term anxiety medication. She is given a couple doses of Ativan to help her through some panic attacks, but understands that these will not be refilled from the emergency department. Discharge Plan Departure Patient Disposition: Home Clinical Impression: Anxiety Discharge Date/Time: 07/13/19 11:50 Instructions: Anxiety Disorders Activity Restrictions/Additional Instructions: *You have been diagnosed with anxiety *What to do: Blood work today is overall reassuring. Strongly recommend therapy and counseling *Continue to take medications as directed Ativan 0.5 mg only if needed for severe panic attack--> sent to [facility] *Follow up with your primary care provider in 2-3 days *Return to ER if you should have increasing chest pain shortness of breath or any new, worsening or concerning symptoms Prescriptions: New lorazepam [Ativan] 0.5 mg tablet 0.5 mg PO DAILY PRN (Reason: anxiety) Qty: 2 RF: 0 No Action chlorthalidone 25 mg tablet 12.5 mg PO PRN PRN (Reason: unknown) Qty: 15 RF: 5 venlafaxine 75 mg tablet 112.5 mg PO QDAY Qty: 135 RF: 1 metoprolol tartrate 50 mg tablet 50 mg PO BID Qty: 180 RF: 1 clonazepam [Klonopin] 1 mg tablet 1 mg PO TID Qty: 90 RF: 0 aspirin [Enteric Coated Aspirin] 81 mg tablet,delayed release (DR/EC) 81 mg PO DAILY RF: 0 doxepin 25 mg capsule 25 mg PO BEDTIME RF: 0 levothyroxine 88 mcg tablet 88 mcg PO DAILY RF: 0 amlodipine 10 mg tablet 10 mg PO DAILY RF: 0 melatonin 5 mg Tablet 10 mg PO BEDTIME PRN (Reason: Insomnia) RF: 0 cholecalciferol (vitamin D3) [Vitamin D3] 2,000 unit Capsule 2,000 unit PO DAILY RF: 0 omeprazole 20 MG capsule,delayed release(DR/EC) 20 mg PO PRN PRN (Reason: Stomach Upset) RF: 0 Referrals: Christine Smith DO [Primary Care Provider] -
[2019-07-13 09:01] LABS: Add Manual Diff / Slide Review NO; Basophils Absolute Auto 100 /uL (0-100); Basophils Percent Auto 1.3 % (0-2); Eosinophils Absolute Auto 100 /uL (0-450); Eosinophils Percent Auto 0.8 % (2-4); Hematocrit 46.9 % (36-46); Lymphocytes Absolute Auto 1800 /uL (1100-4500); Lymphocytes Percent Auto 26.2 % (25-40); Mean Corpuscular HGB Conc 34.2 % (30-36); Mean Corpuscular Hemoglobin 30.1 PG (26-34); Monocytes Absolute Auto 500 /uL (0-900); Monocytes Percent Auto 6.5 % (3-14); Neutrophils Absolute Auto 4600 /uL (1500-7000); Neutrophils Percent Auto 65.2 % (50-75); Platelet Count 280 X10^3/uL (150-400); Red Blood Cell Count 5.33 X10^6/uL (4.0-5.2); Red Cell Distribution Width 13.4 % (11.6-14.8)
[2019-07-13 09:08] LABS: Alanine Aminotransferase 19 IU/L (<35); Albumin 4.3 g/dL (3.5-5.0); Albumin Globulin Ratio 1.2 (1.0-2.8); Alkaline Phosphatase 60 U/L (38-126); Aspartate Aminotransferase 30 IU/L (14-36); BUN Creatinine Ratio 16.3 (6-22); Bilirubin Total 0.8 mg/dL (0.2-1.3); Blood Urea Nitrogen 13 mg/dL (7-17); Calcium 9.3 mg/dL (8.4-10.2); Carbon Dioxide 30 mmol/L (22-32); Chloride 104 mmol/L (98-107); Estimated Glomerular Filt Rate > 60.0 mL/min (>60); Globulin 3.5 g/dL (1.7-4.1); Glucose 127 mg/dL (70-100); HEMOLYSIS 38 (0-50); Lipase 93 U/L (23-300); Sodium 141 mmol/L (137-145); Total Protein 7.8 g/dL (6.3-8.2)
[2019-07-13 09:18] LABS: Prothrombin Time 11.6 SECONDS (10.1-12.7)
[2019-07-13 09:19] LABS: Creatine Kinase 47 U/L (30-135)
[2019-07-13 09:21] LABS: PTT Partial Thromboplastin Tim 35 SECONDS (26.4-36.2)
[2019-07-13 09:33] LABS: Troponin I < 0.012 ng/mL (0.01-0.034)
[2019-07-13] MEDS: LORazepam 0.5 MG TABLET 1 MG PO (10:02)
[2019-07-13] MEDS: SODIUM CHLORIDE 0.9% 1,000 ML 1000 ML IV (10:02)
[2019-07-13 10:05] VITALS: BP 170/90; PULSE 90; RESP 18; O2SAT 99
[2019-07-13 11:00] VITALS: PULSE 68; RESP 18
[2019-07-13 11:50] VITALS: BP 142/79; PULSE 102; RESP 16; O2SAT 95
--- NOTE | 2019-07-13 11:52 | PC.NURSE ---
dr huerta made aware of urine result, states, she has no utis sxs, send for micro, will call pt if + pt made aware willl call if any abnormal result, verbal understanding, states, if +bloood in urine, thats baseline due to she is with chronic kidney stones
[2019-07-13 12:11] LABS: Bacteria Urine Many (>30); Culture Indicated Urine Cult Not Indicated; RBC Urine 0-1/HPF (0-5/HPF); Squamous Epithelial Cell Urine 10-30 /HPF (0-5/HPF); WBC Urine 5-10/HPF (0-5/HPF)
== END 2019-07-13 11:50 | disposition home or self-care (01) ==
PROVIDERS: Emergency Provider Emergency Medicine; PCP Family Medicine
DX: F41.9 Anxiety disorder, unspecified (principal); R07.9 Chest pain, unspecified; R19.7 Diarrhea, unspecified
CPT/HCPCS: 36415; 80053; 81003; 81015; 82550; 83690; 84484; 85025; 85610; 85730; 93005; 96360; 99284

== ENCOUNTER → 2019-09-23 13:34 | Outpatient (CLI) | payer OTHER, SELFPAY ==
[2019-09-23 14:33] LABS: Hemoglobin A1C% w Est Avg Glu 5.6 % (4.0-6.0)
[2019-09-23 15:33] LABS: Cholesterol 212 mg/dL (140-199); HDL Cholesterol 35 mg/dL (40-60); LDL Cholesterol Calculated 122 mg/dL (<100); Triglycerides 273 mg/dL (35-150)
[2019-09-23 16:00] LABS: TSH w/ Reflex to FT4 0.19 uIU/mL (0.47-4.68)
[2019-09-23 16:25] LABS: Free T4, Direct Thyroxine 1.42 ng/dL (0.78-2.19)
== END ==
PROVIDERS: PCP Family Medicine; Referring Provider Family Medicine; Visit Provider Family Medicine
DX: E03.9 Hypothyroidism, unspecified (principal); E78.5 Hyperlipidemia, unspecified; I10 Essential (primary) hypertension; R73.03 Prediabetes
CPT/HCPCS: 36415; 80061; 83036; 84439; 84443

== ENCOUNTER → 2019-12-22 09:22 | Outpatient (CLI) | payer OTHER, SELFPAY ==
--- NOTE | 2019-12-22 09:23 | DI.US.S_ITS ---
LIMITED ULTRASOUND OF RIGHT BREAST: 12/22/2019 CLINICAL: 6 month follow-up of cysts. Also scan area of fullness. Comparison is made to exams dated: 12/22/2019 mammogram, 05/11/2019 ultrasound, 05/11/2019 mammogram, 11/07/2018 ultrasound, 11/07/2018 mammogram, and 10/22/2018 mammogram - [facility]. Color flow and real-time ultrasound of the right breast 1 o'clock region were performed on the areas of interest. There is a stable 0.5 cm x 0.3 cm x 0.4 cm oval cyst in the right breast at 1 o'clock posterior depth. This oval cyst is hypoechoic with a well-defined boundary, internal echoes, and posterior acoustic enhancement. This correlates with mammography findings. Color flow imaging demonstrates that there is no vascularity present. No discrete cystic or solid mass lesion identified in the area of palpable abnormality. IMPRESSION: PROBABLY BENIGN The stable 0.5 cm x 0.3 cm x 0.4 cm oval cyst in the right breast is consistent with a complicated cyst and is probably benign. A follow-up ultrasound in 6 months is recommended. There is no abnormality seen in the right breast to correspond with the palpable abnormality at 1 o'clock, however, clinical followup is recommended. A follow-up ultrasound in 6 months is recommended to demonstrate stability. This exam was interpreted at Station ID: [id number]. Electronically Signed By: Wicho Blancas M.D. ddp/:12/22/2019 11:39:05 copy to: Marilin Johnson copy to: CRYSTAL GALLAGHER letter sent: Followup Recommended Ultrasound BI-RADS: 3 Probably benign
--- NOTE | 2019-12-22 09:23 | DI.MG.S_ITS ---
BILATERAL DIGITAL DIAGNOSTIC MAMMOGRAM 3D/2D SHORT-TERM FOLLOW-UP POST LUMPECTOMY: 12/22/2019 CLINICAL: Patient returns for 6 month follow up of right breast, due for bilateral exam. Comparison is made to exams dated: 05/11/2019 mammogram, 11/07/2018 mammogram, 10/22/2018 mammogram, and 10/15/2016 mammogram - [facility]. There are scattered fibroglandular elements in both breasts. There is a stable oval equal density cyst with a circumscribed margin in the right breast at 1 o'clock posterior depth. There is a stable irregular high density fat necrosis with an indistinct margin and regional coarse dystrophic rim calcifications in the left breast at 12 o'clock anterior depth. This correlates with surgery. There are surgical clips, architectural distortion, a post-surgical scar, and trabecular thickening associated with the fat necrosis. No other significant masses or calcifications are seen in either breast. IMPRESSION: INCOMPLETE: NEEDS ADDITIONAL IMAGING EVALUATION The stable oval equal density cyst in the right breast at 1 o'clock posterior depth is indeterminate. An ultrasound is recommended. The stable irregular high density fat necrosis in the left breast at 12 o'clock anterior depth is consistent with a previous surgery and is benign. There is no abnormality seen in the right breast to correspond with the palpable abnormality in the upper inner quadrant, however, ultrasound is recommended. This exam was interpreted at Station ID: [id number]. NOTE: For mammograms, a report in lay terms will be sent to the patient. Approximately 15% of breast malignancies will not be visualized mammographically. In the management of a palpable breast mass, a negative mammogram must not discourage biopsy of a clinically suspicious lesion. Electronically Signed By: Wicho little/jeny:12/22/2019 10:06:12 copy to: Marilin Johnson copy to: CRISTIAN APONTE BI-RADS Category 0: Incomplete [id number]
== END ==
PROVIDERS: PCP Family Medicine; Referring Provider Family Medicine; Visit Provider Family Medicine
DX: R92.8 Other abnormal and inconclusive findings on diagnostic imaging of breast (principal); N60.01 Solitary cyst of right breast; N64.1 Fat necrosis of breast
CPT/HCPCS: 76642; 77066; G0279

== ENCOUNTER 2020-03-03 10:00 | Emergency (ER) | payer OTHER, SELFPAY ==
[2020-03-03] VITALS (10 sets, daily range): BP systolic 119–149; BP diastolic 60–75; PULSE 81–97; RESP 13–20; TEMP 36.7; O2SAT 96–100; BMI 29.0
--- NOTE | 2020-03-03 10:09 | DI.RAD.S_ITS ---
PROCEDURE: XR CHEST 1V INDICATIONS: suspected sepsis TECHNIQUE: One view of the chest was acquired. COMPARISON: [facility], , CHEST 2 VIEW, 03/26/2016, 9:57. FINDINGS: Surgical changes and devices: None. Lungs and pleura: Lungs are clear. No pleural effusions or pneumothorax. Mediastinum: Mediastinal contours appear normal. Heart size is normal. Bones and chest wall: No suspicious bony lesions. Overlying soft tissues appear unremarkable. IMPRESSION: No evidence acute pulmonary process. Dictated by: Dale Valenzuela M.D. on 03/03/2020 at 11:10 Approved by: Dale Valenzuela M.D. on 03/03/2020 at 11:10
[2020-03-03 10:25] LABS: Add Manual Diff / Slide Review NO; Basophils Absolute Auto 0 /uL (0-100); Basophils Percent Auto 0.3 % (0-2); Eosinophils Absolute Auto 0 /uL (0-450); Eosinophils Percent Auto 0.1 % (2-4); Hematocrit 49.3 % (36-46); Hemoglobin 16.3 g/dL (12.0-16.0); Lymphocytes Absolute Auto 1000 /uL (1100-4500); Lymphocytes Percent Auto 8.1 % (25-40); Mean Corpuscular HGB Conc 33.2 % (30-36); Mean Corpuscular Hemoglobin 29.7 PG (26-34); Mean Corpuscular Volume 89.7 fL (80-100); Monocytes Absolute Auto 200 /uL (0-900); Monocytes Percent Auto 1.7 % (3-14); Neutrophils Absolute Auto 10900 /uL (1500-7000); Neutrophils Percent Auto 89.8 % (50-75); Platelet Count 315 X10^3/uL (150-400); Red Cell Distribution Width 13.3 % (11.6-14.8); White Blood Cell Count 12.2 X10^3/uL (4.5-11.0)
[2020-03-03] MEDS: SODIUM CHLORIDE 0.9% 1,000 ML 1000 ML IV ×2 (10:27→12:25)
[2020-03-03] MEDS: ONDANSETRON 4 MG/2 ML INJ IV ×2 (10:27→12:25)
[2020-03-03 10:31] LABS: INR 0.9 (0.9-1.3); Prothrombin Time 10.1 SECONDS (10.1-12.7)
[2020-03-03 10:34] LABS: PTT Partial Thromboplastin Tim 34 SECONDS (26.4-36.2)
[2020-03-03 10:38] LABS: Alanine Aminotransferase 22 IU/L (<35); Albumin 4.3 g/dL (3.5-5.0); Albumin Globulin Ratio 1.2 (1.0-2.8); Alkaline Phosphatase 71 U/L (38-126); Aspartate Aminotransferase 23 IU/L (14-36); BUN Creatinine Ratio 19.3 (6-22); Bilirubin Total 0.4 mg/dL (0.2-1.3); Blood Urea Nitrogen 16 mg/dL (7-17); Calcium 9.1 mg/dL (8.4-10.2); Carbon Dioxide 32 mmol/L (22-32); Chloride 104 mmol/L (98-107); Estimated Glomerular Filt Rate > 60.0 mL/min (>60); Globulin 3.5 g/dL (1.7-4.1); Glucose 169 mg/dL (70-100); HEMOLYSIS < 15 (0-50); Lipase 100 U/L (23-300); Potassium 3.7 mmol/L (3.4-5.1); Sodium 144 mmol/L (137-145); Total Protein 7.8 g/dL (6.3-8.2)
[2020-03-03 10:52] LABS: Procalcitonin < 0.05 ng/mL (<0.5)
[2020-03-03 10:57] LABS: Ictotest Urine Negative (Negative)
[2020-03-03 10:58] LABS: Bacteria Urine Many (>30); Culture Indicated Urine Cult Not Indicated; RBC Urine 1-5/HPF (0-5/HPF); Squamous Epithelial Cell Urine >30 /HPF (0-5/HPF); WBC Urine 1-5/HPF (0-5/HPF)
--- NOTE | 2020-03-03 11:19 | ED.NAVMDI ---
HPI - Nausea/Vomiting/Diarrhea General Chief complaint: Nausea/Vomiting/Diarrhea Stated complaint: VOMITING,COLD Time Seen by Provider: 03/03/20 10:08 History of Present Illness HPI Narrative: 54-year-old woman with a history of hypothyroidism, breast cancer, anxiety and depression presents with acute onset vomiting last night with at least 15 episodes of emesis followed by dry heaves. No blood and no associated diarrhea. She describes no fevers. She notes she did have some abdominal cramping there is a small bowel movement this morning in the abdominal cramping is significantly improved. She complains that she is slightly dizzy when she stands up. With the severe vomiting last night she was having chills and sweats with quite a bit of diaphoresis. She states that she does not feel actually ill today just a bit sore from the vomiting and slightly dehydrated. She has no history of fevers, cough. Had been otherwise healthy. She and her ate the same meal last night and he is not having any symptoms. She reports no chest pain, dyspnea or skin rashes. Related Data Home Medications Medication Instructions Recorded Confirmed cholecalciferol (vitamin D3) 2,000 unit PO DAILY 02/18/18 09/23/19 [Vitamin D3] melatonin 10 mg PO BEDTIME PRN 02/18/18 09/23/19 omeprazole 20 mg PO PRN PRN 02/18/18 09/23/19 aspirin 81 mg tablet,delayed 81 mg PO DAILY 03/16/19 09/23/19 release amlodipine 10 mg PO DAILY 07/13/19 09/23/19 Previous Rx's Medication Instructions Recorded venlafaxine 75 mg tablet 150 mg PO QDAY #180 tab 07/15/19 beclomethasone dipropionate 80 1 inhalation INHALATION BID #10.6 07/27/19 mcg/actuation HFA breath activated gram aerosol levalbuterol tartrate 45 2 puff INHALATION Q4-6H PRN #15 07/27/19 mcg/actuation aerosol inhaler gram metoprolol tartrate 50 mg tablet 50 mg PO BID #120 tab 07/27/19 mupirocin 2 % topical ointment 1 applictn TOP TID #15 gram 10/12/19 chlorthalidone 25 mg tablet 12.5 mg PO PRN PRN #15 tab 11/04/19 levothyroxine 88 mcg tablet 88 mcg PO DAILY #90 tab 01/18/20 clotrimazole 10 mg juana 10 mg MM 5XD #50 tab 01/29/20 fluconazole 150 mg tablet 150 mg PO ONCE #2 tab 01/29/20 clonazepam 1 mg tablet 1 mg PO TID #90 tab 02/03/20 doxepin 25 mg capsule See Rx Instructions .ROUTE 03/01/20 .COMPLEX #30 cap ondansetron 4 mg PO Q8H PRN #10 tab 03/03/20 Allergies Allergy/AdvReac Type Severity Reaction Status Date / Time atorvastatin Allergy Severe Anaphylaxis Verified 09/23/19 13:18 codeine [CODEINE] Allergy Mild itching Verified 09/23/19 13:18 and hives hydrocodone [HYDROCODONE] Allergy Mild itching Verified 09/23/19 13:18 and hives fluticasone [FLUTICASONE] AdvReac Mild irritabilit Verified 09/23/19 13:18 y metoclopramide AdvReac Mild agitated Verified 09/23/19 13:18 [METOCLOPRAMIDE] zolpidem [ZOLPIDEM] AdvReac Mild agitated Verified 09/23/19 13:18 Review of Systems Review of Systems Narrative: Remainder of review of systems including constitutional, ENT, cardiovascular, respiratory, GI, , musculoskeletal, skin, neurologic and psychiatric systems reviewed and are unremarkable except as noted in HPI. Patient History Medical History Acquired hypothyroidism (Chronic 12/17/12) Anxiety (Chronic) Asthma (Chronic) Breast cancer (Resolved) Cyst of breast, right, solitary (Acute) Deep vein thrombosis (DVT) of upper extremity (Resolved 05/05/14) Depression (Chronic 05/05/14) DVT (deep venous thrombosis) (Chronic ~2011) Generalized anxiety disorder (Chronic) GERD (gastroesophageal reflux disease) (Chronic) H/O malignant neoplasm of breast (Chronic) Hirsutism (Chronic) Hypertension (Chronic) Hypothyroidism (Chronic) Ingrown hair (Chronic) Insomnia (Chronic) Intramural leiomyoma of uterus (Resolved) Kidney stones (Chronic) Kidney stones, calcium oxalate (Acute) 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) Posttraumatic stress disorder (Chronic 06/30/14) Pyelonephritis (Resolved) Seasonal allergic rhinitis (Chronic 10/29/14) Sleep apnea in adult (Chronic 12/13/14) Steatosis of liver (Chronic 03/07/15) Tobacco use disorder (Chronic 08/29/16) Surgical History History of lumpectomy History of third molar tooth extraction History of thyroidectomy History of ureter stent (Acute) Status post laparoscopic cholecystectomy Status post laparoscopic supracervical hysterectomy Status post tonsillectomy and adenoidectomy Social History Smoking Status: Current every day smoker quit status: considering quitting Smoking Status: Current every day smoker tobacco type: cigarettes alcohol intake frequency: holidays/special occasions only Substance Use Type: marijuana Exam Narrative Exam Narrative: General: Healthy appearing, in no acute distress. Able to give a complete and coherent history. Well-nourished well-developed HEENT: dry mucous membranes, normal sclera with reactive pupils, Neck: No JVD, supple Respiratory: Lungs are clear to auscultation, no wheezing no rales no rhonchi. Full and symmetrical air movement Cardiac: Regular rate and rhythm no murmurs no bruits Abdomen: Soft, mild diffuse tenderness without rebound or guarding, good bowel tones, no flank pain Skin: Warm and dry, no rashes Neurologic: Grossly neurologically intact with no obvious asymmetries or abnormalities Extremities: No trauma, well perfused Psych: Cooperative, appropriate insight and affect Initial Vital Signs Initial Vital Signs: Vital Signs Pulse Rate 97 H 03/03/20 10:06 Blood Pressure 144/70 H 03/03/20 10:06 Pulse Oximetry 100 03/03/20 10:06 Course Orders Ordered: ED Orders 03/03/20 10:09 XR chest 1V Stat EKG-12 Lead Stat RT Consult Eval and Treat Now 03/03/20 10:15 Complete Blood Count AUTO DIFF Stat Comprehensive Metabolic Panel Stat Lactate (Lactic Acid) Stat Lipase Stat Partial Thromboplastin Time Stat Procalcitonin Stat Prothrombin Time INR Stat 03/03/20 10:25 Ictotest Urine Stat Urine Microscopic Stat 03/03/20 11:23 XR abdomen 1V Stat 03/03/20 13:21 Blood Culture Stat Discontinued Medications Sodium Chloride (Normal Saline 0.9%) 1,000 mls @ 1,000 mls/hr IV BOLUS ONE Stop: 03/03/20 11:08 Last Infusion: 03/03/20 12:26 Dose: 0 mls/hr Documented by: Admin: 03/03/20 10:27 Dose: 1,000 mls/hr Documented by: CHINO Sodium Chloride (Normal Saline 0.9%) 1,000 mls @ 1,000 mls/hr IV BOLUS ONE Stop: 03/03/20 11:31 Last Admin: 03/03/20 12:25 Dose: 1,000 mls/hr Documented by: CHINO Ondansetron HCl (Zofran) 4 mg IV NOW ONE Stop: 03/03/20 10:10 Last Admin: 03/03/20 10:27 Dose: 4 mg Documented by: CHINO Ondansetron HCl (Zofran) 4 mg IV NOW ONE Stop: 03/03/20 10:33 Last Admin: 03/03/20 12:25 Dose: 4 mg Documented by: CHINO Vital Signs Vital signs: Vital Signs - 8 hr 03/03/20 10:06 03/03/20 10:07 03/03/20 10:18 Temperature 98.0 F Pulse Rate 97 H 93 H 89 Respiratory Rate 16 Blood Pressure 144/70 H 144/70 H 149/75 H Pulse Oximetry 100 96 97 03/03/20 10:30 03/03/20 11:00 03/03/20 11:30 Temperature Pulse Rate 81 85 94 H Respiratory Rate 20 14 Blood Pressure 132/69 121/66 Pulse Oximetry 99 97 03/03/20 12:00 03/03/20 12:29 03/03/20 12:30 Temperature Pulse Rate 83 89 92 H Respiratory Rate 20 19 Blood Pressure 128/73 134/75 Pulse Oximetry 98 97 96 MDM - Nausea/Vomiting/Diarrhea Medical Records Attestation: I reviewed the patient's medical records. Lab Data Attestation: I reviewed the patient's lab results. Result diagrams: 03/03/20 10:15 03/03/20 10:15 Labs: Lab Results 03/03/20 03/03/20 03/03/20 Range/Units 10:15 10:15 10:15 WBC 12.2 H (4.5-11.0) X10^3/uL RBC 5.50 H (4.0-5.2) X10^6/uL Hgb 16.3 H (12.0-16.0) g/dL Hct 49.3 H (36-46) % MCV 89.7 (80-100) fL MCH 29.7 (26-34) PG MCHC 33.2 (30-36) % RDW 13.3 (11.6-14.8) % Plt Count 315 (150-400) X10^3/uL Neut % (Auto) 89.8 H (50-75) % Lymph % (Auto) 8.1 L (25-40) % [place] % (Auto) 1.7 L (3-14) % Eos % (Auto) 0.1 L (2-4) % Baso % (Auto) 0.3 (0-2) % Neut # (Auto) 65751 H (3641-2110) /uL Lymph # (Auto) 1000 L (4024-2618) /uL [place] # (Auto) 200 (0-900) /uL Eos # (Auto) 0 (0-450) /uL Baso # (Auto) 0 (0-100) /uL PT 10.1 (10.1-12.7) SECONDS INR 0.9 (0.9-1.3) APTT 34 (26.4-36.2) SECONDS Sodium (137-145) mmol/L Potassium (3.4-5.1) mmol/L Chloride (98-107) mmol/L Carbon Dioxide (22-32) mmol/L BUN (7-17) mg/dL Creatinine (0.52-1.04) mg/dL Estimated GFR (>60) mL/min BUN/Creatinine Ratio (6-22) Glucose (70-100) mg/dL Lactate (0.7-2.1) mmol/L Calcium (8.4-10.2) mg/dL Total Bilirubin (0.2-1.3) mg/dL AST (14-36) IU/L ALT (<35) IU/L Alkaline Phosphatase (38-126) U/L Total Protein (6.3-8.2) g/dL Albumin (3.5-5.0) g/dL Globulin (1.7-4.1) g/dL Albumin/Globulin Ratio (1.0-2.8) Lipase (23-300) U/L Procalcitonin < 0.05 (<0.5) ng/mL Ur Bilirubin Confirm (Negative) Urine RBC (0-5/HPF) Urine WBC (0-5/HPF) Ur Squamous Epith Cells (0-5/HPF) Urine Bacteria (None) Ur Culture Indicated? 03/03/20 03/03/20 03/03/20 Range/Units 10:15 10:15 10:25 WBC (4.5-11.0) X10^3/uL RBC (4.0-5.2) X10^6/uL Hgb (12.0-16.0) g/dL Hct (36-46) % MCV (80-100) fL MCH (26-34) PG MCHC (30-36) % RDW (11.6-14.8) % Plt Count (150-400) X10^3/uL Neut % (Auto) (50-75) % Lymph % (Auto) (25-40) % [place] % (Auto) (3-14) % Eos % (Auto) (2-4) % Baso % (Auto) (0-2) % Neut # (Auto) (5741-7138) /uL Lymph # (Auto) (6406-5726) /uL [place] # (Auto) (0-900) /uL Eos # (Auto) (0-450) /uL Baso # (Auto) (0-100) /uL PT (10.1-12.7) SECONDS INR (0.9-1.3) APTT (26.4-36.2) SECONDS Sodium 144 (137-145) mmol/L Potassium 3.7 (3.4-5.1) mmol/L Chloride 104 (98-107) mmol/L Carbon Dioxide 32 (22-32) mmol/L BUN 16 (7-17) mg/dL Creatinine 0.83 (0.52-1.04) mg/dL Estimated GFR > 60.0 (>60) mL/min BUN/Creatinine Ratio 19.3 (6-22) Glucose 169 H (70-100) mg/dL Lactate 3.0 H (0.7-2.1) mmol/L Calcium 9.1 (8.4-10.2) mg/dL Total Bilirubin 0.4 (0.2-1.3) mg/dL AST 23 (14-36) IU/L ALT 22 (<35) IU/L Alkaline Phosphatase 71 (38-126) U/L Total Protein 7.8 (6.3-8.2) g/dL Albumin 4.3 (3.5-5.0) g/dL Globulin 3.5 (1.7-4.1) g/dL Albumin/Globulin Ratio 1.2 (1.0-2.8) Lipase 100 (23-300) U/L Procalcitonin (<0.5) ng/mL Ur Bilirubin Confirm Negative (Negative) Urine RBC 1-5/hpf (0-5/HPF) Urine WBC 1-5/hpf (0-5/HPF) Ur Squamous Epith Cells >30 /hpf H (0-5/HPF) Urine Bacteria Many (>30) H (None) Ur Culture Indicated? Cult not indicated 03/03/20 Range/Units 12:22 WBC (4.5-11.0) X10^3/uL RBC (4.0-5.2) X10^6/uL Hgb (12.0-16.0) g/dL Hct (36-46) % MCV (80-100) fL MCH (26-34) PG MCHC (30-36) % RDW (11.6-14.8) % Plt Count (150-400) X10^3/uL Neut % (Auto) (50-75) % Lymph % (Auto) (25-40) % [place] % (Auto) (3-14) % Eos % (Auto) (2-4) % Baso % (Auto) (0-2) % Neut # (Auto) (9902-3050) /uL Lymph # (Auto) (5273-1891) /uL [place] # (Auto) (0-900) /uL Eos # (Auto) (0-450) /uL Baso # (Auto) (0-100) /uL PT (10.1-12.7) SECONDS INR (0.9-1.3) APTT (26.4-36.2) SECONDS Sodium (137-145) mmol/L Potassium (3.4-5.1) mmol/L Chloride (98-107) mmol/L Carbon Dioxide (22-32) mmol/L BUN (7-17) mg/dL Creatinine (0.52-1.04) mg/dL Estimated GFR (>60) mL/min BUN/Creatinine Ratio (6-22) Glucose (70-100) mg/dL Lactate 1.4 (0.7-2.1) mmol/L Calcium (8.4-10.2) mg/dL Total Bilirubin (0.2-1.3) mg/dL AST (14-36) IU/L ALT (<35) IU/L Alkaline Phosphatase (38-126) U/L Total Protein (6.3-8.2) g/dL Albumin (3.5-5.0) g/dL Globulin (1.7-4.1) g/dL Albumin/Globulin Ratio (1.0-2.8) Lipase (23-300) U/L Procalcitonin (<0.5) ng/mL Ur Bilirubin Confirm (Negative) Urine RBC (0-5/HPF) Urine WBC (0-5/HPF) Ur Squamous Epith Cells (0-5/HPF) Urine Bacteria (None) Ur Culture Indicated? Urine Dip Bedside Urine Glucose Negative Bedside Urine Bilirubin ++ 2 Bedside Urine Ketone +/- 5 Urine Specific [place] 1.015 Bedside Urine Occult Blood - Negative Bedside Urine pH 7.0 Bedside Urine Protein +/- 15 Bedside Urine Urobilinogen - Negative Bedside Urine Nitrite - Negative Bedside Urine Leukocytes - Negative Esterase Urinalysis suggests contamination rather than infection. Will wait for culture prior to any antibiotic treatment Imaging Data Abdominal x-ray: Radiologist's Impression: FINDINGS: Surgical changes and devices: Cholecystectomy clips are seen. Bowel: Bowel gas pattern is normal. Soft tissues: No suspicious abdominal calcifications. Visualized solid organ contours appear normal in size. Pelvic phleboliths are incidentally noted. Bones: No suspicious bony lesions. [id number] levoconvex thoracolumbar scoliotic curvature is seen. No findings of hardware failure or hardware loosening are seen. IMPRESSION: A nonobstructive bowel gas pattern is seen. As clinically appropriate, please consider a repeat plain film study or a dedicated CT of the abdomen and pelvis, if the patient's symptoms persist or worsen. Postoperative and degenerative changes are seen. Dictated by: Harpal Yang M.D. on 03/03/2020 at 10:46 Chest x-ray: Radiologist's Impression: FINDINGS: Surgical changes and devices: None. Lungs and pleura: Lungs are clear. No pleural effusions or pneumothorax. Mediastinum: Mediastinal contours appear normal. Heart size is normal. Bones and chest wall: No suspicious bony lesions. Overlying soft tissues appear unremarkable. IMPRESSION: No evidence acute pulmonary process. Dictated by: Dale Valenzuela M.D. on 03/03/2020 at 11:10 ECG Data Attestation: I personally reviewed and interpreted this ECG as follows: Interpretation: Sinus rhythm at 76 Normal intervals, normal axis No acute ischemic changes MDM Narrative Medical decision making narrative: 54-year-old woman with acute onset vomiting overnight. No evidence of bowel obstruction for significant infection. Moderately dehydrated doing well with fluid resuscitation. Nausea is better controlled vomiting. This point. Lactic acid was initially elevated and with hydration has come down nicely. She will be safe for home discharge Discharge Plan Departure Patient Disposition: Home Clinical Impression: Acute dehydration Nausea & vomiting Qualifiers: Vomiting type: unspecified Vomiting Intractability: non-intractable Qualified Code(s): R11.2 - Nausea with vomiting, unspecified Instructions: DI for Vomiting -- Adult Activity Restrictions/Additional Instructions: Thank you for coming in today I am not finding a life-threatening explanation for your nausea and vomiting. There is no suggestion of a bowel obstruction or any type of severe bacterial infection. It does seem like your over the worst of it at this point. You were quite dehydrated and I did give you 2 L of fluid as well as some nausea medicine. I have given you a prescription for ondansetron to use should nausea return. The prescription was electronically transmitted to [facility] in [place]. If you have additional concerns, problems recurrent nausea that can be controlled developed fevers or have other questions it would be very appropriate to return to the emergency department I wish you well Prescriptions: New ondansetron 4 mg tablet,disintegrating 4 mg PO Q8H PRN (Reason: nausea and vomiting) Qty: 10 RF: 0 No Action mupirocin 2 % ointment 1 applictn TOP TID Qty: 15 RF: 0 chlorthalidone 25 mg tablet 12.5 mg PO PRN PRN (Reason: unknown) Qty: 15 RF: 5 levothyroxine 88 mcg tablet 88 mcg PO DAILY Qty: 90 RF: 0 clotrimazole 10 mg juana 10 mg MM 5XD Qty: 50 RF: 0 fluconazole 150 mg tablet 150 mg PO ONCE Qty: 2 RF: 0 clonazepam [Klonopin] 1 mg tablet 1 mg PO TID Qty: 90 RF: 2 doxepin 25 mg capsule See Rx Instructions .ROUTE .COMPLEX Qty: 30 RF: 0 aspirin [Enteric Coated Aspirin] 81 mg tablet,delayed release (DR/EC) 81 mg PO DAILY RF: 0 venlafaxine 75 mg tablet 150 mg PO QDAY Qty: 180 RF: 1 levalbuterol tartrate [Xopenex HFA] 45 mcg/actuation HFA aerosol inhaler 2 puff INHALATION Q4-6H PRN (Reason: shortness of breath) Qty: 15 RF: 0 beclomethasone dipropionate 80 mcg/actuation HFA aerosol breath activated 1 inhalation INHALATION BID Qty: 10.6 RF: 5 metoprolol tartrate 50 mg tablet 50 mg PO BID Qty: 120 RF: 1 amlodipine 10 mg tablet 10 mg PO DAILY RF: 0 melatonin 5 mg Tablet 10 mg PO BEDTIME PRN (Reason: Insomnia) RF: 0 cholecalciferol (vitamin D3) [Vitamin D3] 2,000 unit Capsule 2,000 unit PO DAILY RF: 0 omeprazole 20 MG capsule,delayed release(DR/EC) 20 mg PO PRN PRN (Reason: Stomach Upset) RF: 0 Referrals: Christine Smith DO [Primary Care Provider] -
--- NOTE | 2020-03-03 11:23 | DI.RAD.S_ITS ---
PROCEDURE: XR ABDOMEN 1V INDICATIONS: Acute abdominal pain and vomiting TECHNIQUE: One view of the abdomen acquired. COMPARISON: [facility], RG, XR ABDOMEN FLAT (KUB) 1 VIEW, 08/21/2003, 10:25. Merged With [facility], CT, CT KUB, 08/11/2017, 8:48. [facility], CT, KIDNEY/ URETER/BLADDER, 06/01/2017, 13:24. [facility], CR, ABDOMEN 2 VIEW, 07/16/2017, 3:02. FINDINGS: Surgical changes and devices: Cholecystectomy clips are seen. Bowel: Bowel gas pattern is normal. Soft tissues: No suspicious abdominal calcifications. Visualized solid organ contours appear normal in size. Pelvic phleboliths are incidentally noted. Bones: No suspicious bony lesions. [id number] levoconvex thoracolumbar scoliotic curvature is seen. No findings of hardware failure or hardware loosening are seen. IMPRESSION: A nonobstructive bowel gas pattern is seen. As clinically appropriate, please consider a repeat plain film study or a dedicated CT of the abdomen and pelvis, if the patient's symptoms persist or worsen. Postoperative and degenerative changes are seen. Dictated by: Harpal Yang M.D. on 03/03/2020 at 10:46 Approved by: Harpal Yang M.D. on 03/03/2020 at 10:49
[2020-03-03 12:22] LABS: Reflexed Lactate in 2 Hours Y
[2020-03-03 13:23] LABS: Lactate 2HR (Lactic Acid Rflx) 1.4 mmol/L (0.7-2.1)
== END 2020-03-03 13:54 | disposition home or self-care (01) ==
PROVIDERS: Emergency Provider Emergency Medicine; PCP Family Medicine
DX: E86.0 Dehydration (principal); R11.2 Nausea with vomiting, unspecified
CPT/HCPCS: 36415; 71045; 74018; 80053; 81003; 81015; 83605; 83690; 84145; 85025; 85610; 85730; 87040; 93005; 93010; 96361; 96374; 96376; 99284; J2405

== ENCOUNTER → 2020-03-07 07:17 | Outpatient (CLI) | payer OTHER, SELFPAY ==
[2020-03-07 08:14] LABS: Hemoglobin A1C% w Est Avg Glu 5.5 % (4.0-6.0)
[2020-03-07 08:25] LABS: Alanine Aminotransferase 18 IU/L (<35); Albumin 3.9 g/dL (3.5-5.0); Albumin Globulin Ratio 1.4 (1.0-2.8); Alkaline Phosphatase 60 U/L (38-126); Aspartate Aminotransferase 21 IU/L (14-36); BUN Creatinine Ratio 14.1 (6-22); Bilirubin Total 0.5 mg/dL (0.2-1.3); Blood Urea Nitrogen 11 mg/dL (7-17); Calcium 8.9 mg/dL (8.4-10.2); Carbon Dioxide 33 mmol/L (22-32); Chloride 104 mmol/L (98-107); Estimated Glomerular Filt Rate > 60.0 mL/min (>60); Globulin 2.7 g/dL (1.7-4.1); Glucose 113 mg/dL (70-100); HEMOLYSIS 15 (0-50); Potassium 4.1 mmol/L (3.4-5.1); Sodium 141 mmol/L (137-145); Total Protein 6.6 g/dL (6.3-8.2)
[2020-03-07 08:51] LABS: TSH w/ Reflex to FT4 0.94 uIU/mL (0.47-4.68)
== END ==
PROVIDERS: PCP Family Medicine; Referring Provider Family Medicine; Visit Provider Family Medicine
DX: E03.9 Hypothyroidism, unspecified (principal); E78.5 Hyperlipidemia, unspecified; I10 Essential (primary) hypertension; R73.03 Prediabetes
CPT/HCPCS: 36415; 80053; 83036; 84443

== ENCOUNTER → 2020-08-16 13:08 | Outpatient (CLI) | payer OTHER, SELFPAY ==
--- NOTE | 2020-08-16 13:09 | DI.US.S_ITS ---
LIMITED ULTRASOUND OF RIGHT BREAST: 08/16/2020 CLINICAL: Patient returns today to evaluate a focal asymmetry in the right breast. Comparison is made to exams dated: 08/16/2020 mammogram, 12/22/2019 ultrasound, 12/22/2019 mammogram, 05/11/2019 ultrasound, and 05/11/2019 mammogram - [facility]. Ultrasound of the right breast 1 o'clock region was performed. There is a stable benign 0.5 cm cyst in the right breast at 1 o'clock posterior depth. This correlates with mammography findings. Color flow imaging demonstrates that there is no vascularity present. No suspicious finding at the patient's area of pain. IMPRESSION: BENIGN There is no sonographic evidence of malignancy. Stable 0.5 cm cyst in the right breast is consistent with a complicated cyst and is benign. Return to annual mammogram screening schedule is recommended. This exam was interpreted at Station ID: [id number]. Electronically Signed By: Donavon Hendrix M.D. jr/:08/16/2020 15:13:08 copy to: Marilin Johnson copy to: CRYSTAL GALLAGHER letter sent: Normal Exam Ultrasound BI-RADS: 2 Benign
--- NOTE | 2020-08-16 13:09 | DI.MG.S_ITS ---
BILATERAL DIGITAL DIAGNOSTIC MAMMOGRAM 3D/2D: 08/16/2020 CLINICAL: Short term follow up of the right breast, due for bilateral imaging. New right breast pain. Comparison is made to exams dated: 12/22/2019 mammogram, 05/11/2019 mammogram, and 11/07/2018 mammogram - [facility]. There are scattered fibroglandular elements in both breasts. There is a stable oval equal density cyst with a circumscribed margin in the right breast at 1 o'clock posterior depth. This has been previously evaluated with ultrasound. There is a stable benign irregular high density fat necrosis with an indistinct margin and regional coarse dystrophic rim calcifications in the left breast at 12 o'clock anterior depth. This correlates with surgery. There are surgical clips, architectural distortion, a post-surgical scar, and trabecular thickening associated with the fat necrosis. No abnormality at the patient's area of pain. IMPRESSION: INCOMPLETE: NEEDS ADDITIONAL IMAGING EVALUATION Stable cyst in the right breast at 1 o'clock posterior depth; an ultrasound has been previously recommended and will be performed. No abnormality seen to correspond with the area of pain, however, ultrasound will be performed here as well to further evaluate. This exam was interpreted at Station ID: [id number]. NOTE: For mammograms, a report in lay terms will be sent to the patient. Approximately 15% of breast malignancies will not be visualized mammographically. In the management of a palpable breast mass, a negative mammogram must not discourage biopsy of a clinically suspicious lesion. Electronically Signed By: Donavon Hendrix M.D. jr/:08/16/2020 15:06:17 copy to: Marilin Johnson copy to: CRYSTAL GALLAGHER ACR BI-RADS Category 0: Incomplete [id number]
== END ==
PROVIDERS: PCP Family Medicine; Referring Provider Family Medicine; Visit Provider Family Medicine
DX: R92.8 Other abnormal and inconclusive findings on diagnostic imaging of breast (principal); N60.01 Solitary cyst of right breast
CPT/HCPCS: 76642; 77066; G0279

== ENCOUNTER 2020-09-03 03:32 | Emergency (ER) | payer OTHER, SELFPAY ==
[2020-09-03 03:44] VITALS: BP 167/88; PULSE 99; RESP 17; TEMP 37; O2SAT 98; BMI 29.0
[2020-09-03] MEDS: ONDANSETRON 4 MG/2 ML INJ IV (03:58)
[2020-09-03] MEDS: SODIUM CHLORIDE 0.9% 1,000 ML 1000 ML IV (03:58)
--- NOTE | 2020-09-03 03:59 | ED.GENADULT ---
HPI - General Adult General Chief complaint: Abdominal Pain Stated complaint: nausea vomiting, diarrhea, dehydrated Time Seen by Provider: 09/03/20 03:39 Source: patient Mode of arrival: Ambulatory Limitations: no limitations History of Present Illness HPI narrative: Patient is a 54-year-old female yesterday started to vomiting and. She is having some cramping associated with these events. She did admit to smoking marijuana prior to arrival try to help with the symptoms. She also took some Zofran that she had left over after receiving chemotherapy for breast cancer but she states this medication is several years old. She is not currently undergoing any chemotherapy. She states she has episodes like this in the past when she becomes dehydrated and can only be treated in the emergency department Related Data Home Medications Medication Instructions Recorded Confirmed cholecalciferol (vitamin D3) 2,000 unit PO DAILY 02/18/18 05/20/20 [Vitamin D3] melatonin 10 mg PO BEDTIME PRN 02/18/18 05/20/20 omeprazole 20 mg PO PRN PRN 02/18/18 05/20/20 aspirin 81 mg tablet,delayed 81 mg PO DAILY 03/16/19 05/20/20 release Previous Rx's Medication Instructions Recorded beclomethasone dipropionate 80 1 inhalation INHALATION BID #10.6 07/27/19 mcg/actuation HFA breath activated gram aerosol levalbuterol tartrate 45 2 puff INHALATION Q4-6H PRN #15 07/27/19 mcg/actuation aerosol inhaler gram mupirocin 2 % topical ointment 1 applictn TOP TID #15 gram 10/12/19 venlafaxine 75 mg tablet 150 mg PO QDAY #180 tab 04/13/20 amlodipine 10 mg tablet 10 mg PO DAILY #90 tab 05/20/20 doxepin 25 mg capsule 25 mg PO BEDTIME #90 cap 05/20/20 levothyroxine 88 mcg tablet 88 mcg PO DAILY #90 tab 05/20/20 metoprolol tartrate 50 mg tablet 50 mg PO BID #180 tab 05/20/20 chlorthalidone 25 mg tablet 12.5 mg PO DAILY #45 tab 05/23/20 clonazepam 1 mg tablet 1 mg PO TID #90 tab 08/02/20 ondansetron 4 mg PO Q6H PRN #10 tab 09/03/20 Allergies Allergy/AdvReac Type Severity Reaction Status Date / Time atorvastatin Allergy Severe Anaphylaxis Verified 05/20/20 08:55 codeine [CODEINE] Allergy Mild itching Verified 05/20/20 08:55 and hives hydrocodone [HYDROCODONE] Allergy Mild itching Verified 05/20/20 08:55 and hives fluticasone [FLUTICASONE] AdvReac Mild irritabilit Verified 05/20/20 08:55 y metoclopramide AdvReac Mild agitated Verified 05/20/20 08:55 [METOCLOPRAMIDE] zolpidem [ZOLPIDEM] AdvReac Mild agitated Verified 05/20/20 08:55 Review of Systems Constitutional Constitutional: Denies fever(s) and Denies headache(s) ENT Ears, Nose, Mouth, and Throat: Denies headache(s) Cardiovascular Cardiovascular: Denies chest pain and Denies dyspnea Respiratory Respiratory: Denies dyspnea Gastrointestinal Gastrointestinal: Denies melena, Denies hematochezia, Reports cramping, Reports diarrhea, Reports nausea and Reports vomiting Genitourinary Comments: Decreased urine output Musculoskeletal Musculoskeletal: Denies arthralgias and Denies myalgias Integumentary/Breasts Skin/Breast: Denies rash Neurologic Neurologic: Denies behavioral changes and Denies headache(s) Psychiatric Psychiatric: Denies behavioral changes Hematologic/Lymphatic On Anticoagulants: No Allergic/Immunologic Allergic/Immunologic: Denies urticaria Patient History Medical History Acquired hypothyroidism (12/17/12) Anxiety Asthma Breast cancer Cyst of breast, right, solitary Deep vein thrombosis (DVT) of upper extremity (05/05/14) Depression (05/05/14) DVT (deep venous thrombosis) (~2011) Generalized anxiety disorder GERD (gastroesophageal reflux disease) H/O malignant neoplasm of breast Hirsutism Hypertension Hypothyroidism Ingrown hair Insomnia Intramural leiomyoma of uterus Kidney stones Kidney stones, calcium oxalate 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) Posttraumatic stress disorder (06/30/14) Pyelonephritis Seasonal allergic rhinitis (10/29/14) Sleep apnea in adult (12/13/14) Steatosis of liver (03/07/15) Tobacco use disorder (08/29/16) Surgical History History of lumpectomy History of third molar tooth extraction History of thyroidectomy History of ureter stent Status post laparoscopic cholecystectomy Status post laparoscopic supracervical hysterectomy Status post tonsillectomy and adenoidectomy Social History Smoking Status: Current every day smoker quit status: considering quitting Smoking Status: Current every day smoker tobacco type: cigarettes alcohol intake frequency: holidays/special occasions only Substance Use Type: marijuana Exam Initial Vital Signs Initial Vital Signs: Vital Signs Temperature 98.6 F 09/03/20 03:44 Pulse Rate 99 H 09/03/20 03:44 Respiratory Rate 17 09/03/20 03:44 Blood Pressure 167/88 H 09/03/20 03:44 Pulse Oximetry 98 09/03/20 03:44 Const General: cooperative, comfortable and well developed Limitations: mental status not altered HENMT Head: normal to inspection and normocephalic Eyes General: appearance normal, both eyes and all related structures Resp Effort & Inspection: normal respiratory effort Auscultation: clear to auscultation bilaterally Cardio Rate: regular rate Rhythm: regular rhythm GI Inspection: non-distended Palpation: soft Skin Lesions: no lesions Rashes: no rashes Neuro General: patient alert, patient awake and patient oriented x3 Extrem General: normal to inspection and capillary refill normal Psych Appearance: grossly normal and well kempt Course Orders Ordered: ED Orders 09/03/20 03:48 Complete Blood Count AUTO DIFF Stat Comprehensive Metabolic Panel Stat Lipase Stat Discontinued Medications Sodium Chloride (Normal Saline 0.9%) 1,000 mls @ 1,000 mls/hr IV BOLUS ONE Stop: 09/03/20 04:52 Last Admin: 09/03/20 03:58 Dose: 1,000 mls/hr Documented by: DBROYLE Ondansetron HCl (Ondansetron 4 Mg/2 Ml Inj) 4 mg IV NOW ONE Stop: 09/03/20 03:54 Last Admin: 09/03/20 03:58 Dose: 4 mg Documented by: DBROYLE Ondansetron HCl (Ondansetron 4 Mg Odt Prepack) 1 bottle MISC SEEINSTR ONE Stop: 09/03/20 05:46 Last Admin: 09/03/20 05:51 Dose: 1 bottle Documented by: Vital Signs Vital signs: Vital Signs - 8 hr 09/03/20 03:44 09/03/20 05:32 Temperature 98.6 F Pulse Rate 99 H 77 Respiratory Rate 17 20 Blood Pressure 167/88 H 135/63 Pulse Oximetry 98 98 Medical Decision Making Lab Data Lab results reviewed: Yes I reviewed the patient's lab results. Result diagrams: 09/03/20 03:48 09/03/20 03:48 Labs: Lab Results 09/03/20 09/03/20 Range/Units 03:48 03:48 WBC 9.8 (4.5-11.0) X10^3/uL RBC 5.17 (4.0-5.2) X10^6/uL Hgb 15.6 (12.0-16.0) g/dL Hct 46.6 H (36-46) % MCV 90.2 (80-100) fL MCH 30.2 (26-34) PG MCHC 33.4 (30-36) % RDW 14.6 (11.6-14.8) % Plt Count 292 (150-400) X10^3/uL Neut % (Auto) 60.0 (50-75) % Lymph % (Auto) 30.9 (25-40) % [place] % (Auto) 6.7 (3-14) % Eos % (Auto) 1.1 L (2-4) % Baso % (Auto) 1.3 (0-2) % Neut # (Auto) 5900 (2703-3582) /uL Lymph # (Auto) 3000 (5553-4852) /uL [place] # (Auto) 700 (0-900) /uL Eos # (Auto) 100 (0-450) /uL Baso # (Auto) 100 (0-100) /uL Sodium 141 (137-145) mmol/L Potassium 3.7 (3.4-5.1) mmol/L Chloride 103 (98-107) mmol/L Carbon Dioxide 33 H (22-32) mmol/L BUN 14 (7-17) mg/dL Creatinine 0.69 (0.52-1.04) mg/dL Estimated GFR > 60.0 (>60) mL/min BUN/Creatinine Ratio 20.3 (6-22) Glucose 144 H (70-100) mg/dL Calcium 9.3 (8.4-10.2) mg/dL Total Bilirubin 0.3 (0.2-1.3) mg/dL AST 17 (14-36) IU/L ALT 13 (<35) IU/L Alkaline Phosphatase 55 (38-126) U/L Total Protein 6.8 (6.3-8.2) g/dL Albumin 4.1 (3.5-5.0) g/dL Globulin 2.7 (1.7-4.1) g/dL Albumin/Globulin Ratio 1.5 (1.0-2.8) Lipase 301 H (23-300) U/L MDM Narrative Medical decision making narrative: Well-appearing. Thumb better after medications and fluids. Labs unremarkable. Feel we can hold on radiologic studies right now given the improvement of her symptoms. Will discharge home with return precautions. She expressed understanding and agreement. Discharge Plan Departure Patient Disposition: Home Clinical Impression: Nausea and vomiting, Diarrhea Instructions: Diarrhea, Nausea and Vomiting-Adult Activity Restrictions/Additional Instructions: You can continue to take all your medications as directed. Increase your fluid intake by drinking small amounts of fluid in for longer periods of time. Start introducing a bland diet when you feel up to it. Contact your primary provider for follow-up. Return to the emergency department for any new or worsening symptoms. Prescriptions: New ondansetron 4 mg tablet,disintegrating 4 mg PO Q6H PRN (Reason: nausea and vomiting) Qty: 10 RF: 0 No Action mupirocin 2 % ointment 1 applictn TOP TID Qty: 15 RF: 0 venlafaxine 75 mg tablet 150 mg PO QDAY Qty: 180 RF: 1 chlorthalidone 25 mg tablet 12.5 mg PO DAILY Qty: 45 RF: 3 clonazepam [Klonopin] 1 mg tablet 1 mg PO TID Qty: 90 RF: 2 aspirin [Enteric Coated Aspirin] 81 mg tablet,delayed release (DR/EC) 81 mg PO DAILY RF: 0 levalbuterol tartrate [Xopenex HFA] 45 mcg/actuation HFA aerosol inhaler 2 puff INHALATION Q4-6H PRN (Reason: shortness of breath) Qty: 15 RF: 0 beclomethasone dipropionate 80 mcg/actuation HFA aerosol breath activated 1 inhalation INHALATION BID Qty: 10.6 RF: 5 amlodipine 10 mg tablet 10 mg PO DAILY Qty: 90 RF: 3 doxepin 25 mg capsule 25 mg PO BEDTIME Qty: 90 RF: 3 levothyroxine 88 mcg tablet 88 mcg PO DAILY Qty: 90 RF: 3 metoprolol tartrate 50 mg tablet 50 mg PO BID Qty: 180 RF: 3 melatonin 5 mg Tablet 10 mg PO BEDTIME PRN (Reason: Insomnia) RF: 0 cholecalciferol (vitamin D3) [Vitamin D3] 2,000 unit Capsule 2,000 unit PO DAILY RF: 0 omeprazole 20 MG capsule,delayed release(DR/EC) 20 mg PO PRN PRN (Reason: Stomach Upset) RF: 0 Referrals: Christine Smith DO [Primary Care Provider] -
[2020-09-03 04:12] LABS: Add Manual Diff / Slide Review NO; Basophils Absolute Auto 100 /uL (0-100); Basophils Percent Auto 1.3 % (0-2); Eosinophils Absolute Auto 100 /uL (0-450); Eosinophils Percent Auto 1.1 % (2-4); Hematocrit 46.6 % (36-46); Hemoglobin 15.6 g/dL (12.0-16.0); Lymphocytes Absolute Auto 3000 /uL (1100-4500); Lymphocytes Percent Auto 30.9 % (25-40); Mean Corpuscular HGB Conc 33.4 % (30-36); Mean Corpuscular Hemoglobin 30.2 PG (26-34); Mean Corpuscular Volume 90.2 fL (80-100); Monocytes Absolute Auto 700 /uL (0-900); Monocytes Percent Auto 6.7 % (3-14); Neutrophils Absolute Auto 5900 /uL (1500-7000); Platelet Count 292 X10^3/uL (150-400); Red Blood Cell Count 5.17 X10^6/uL (4.0-5.2); Red Cell Distribution Width 14.6 % (11.6-14.8); White Blood Cell Count 9.8 X10^3/uL (4.5-11.0)
[2020-09-03 04:22] LABS: Alanine Aminotransferase 13 IU/L (<35); Albumin 4.1 g/dL (3.5-5.0); Albumin Globulin Ratio 1.5 (1.0-2.8); Alkaline Phosphatase 55 U/L (38-126); Aspartate Aminotransferase 17 IU/L (14-36); BUN Creatinine Ratio 20.3 (6-22); Bilirubin Total 0.3 mg/dL (0.2-1.3); Blood Urea Nitrogen 14 mg/dL (7-17); Calcium 9.3 mg/dL (8.4-10.2); Carbon Dioxide 33 mmol/L (22-32); Chloride 103 mmol/L (98-107); Estimated Glomerular Filt Rate > 60.0 mL/min (>60); Globulin 2.7 g/dL (1.7-4.1); Glucose 144 mg/dL (70-100); HEMOLYSIS < 15 (0-50); Lipase 301 U/L (23-300); Potassium 3.7 mmol/L (3.4-5.1); Sodium 141 mmol/L (137-145); Total Protein 6.8 g/dL (6.3-8.2)
[2020-09-03 05:32] VITALS: BP 135/63; PULSE 77; RESP 20; O2SAT 98
[2020-09-03] MEDS: ONDANSETRON 4 MG ODT PREPACK 1 BOTTLE MISC (05:51)
== END 2020-09-03 06:00 | disposition home or self-care (01) ==
PROVIDERS: Emergency Provider Emergency Medicine; PCP Family Medicine
DX: R11.2 Nausea with vomiting, unspecified (principal); R19.7 Diarrhea, unspecified
CPT/HCPCS: 36415; 80053; 83690; 85025; 96361; 96374; 99284; J2405

== ENCOUNTER → 2020-12-14 11:33 | Outpatient (CLI) | payer OTHER, SELFPAY ==
[2020-12-14 13:41] LABS: BUN Creatinine Ratio 14.5 (6-22); Blood Urea Nitrogen 11 mg/dL (7-17); Calcium 9.7 mg/dL (8.4-10.2); Carbon Dioxide 32 mmol/L (22-32); Chloride 104 mmol/L (98-107); Estimated Glomerular Filt Rate > 60.0 mL/min (>60); Glucose 98 mg/dL (70-100); HEMOLYSIS < 15 (0-50); Potassium 4.2 mmol/L (3.4-5.1); Sodium 141 mmol/L (137-145)
[2020-12-14 14:08] LABS: Hemoglobin A1C% w Est Avg Glu 5.4 % (4.0-6.0)
== END ==
PROVIDERS: PCP Family Medicine; Referring Provider Family Medicine; Visit Provider Family Medicine
DX: R73.03 Prediabetes (principal)
CPT/HCPCS: 36415; 80048; 83036

== ENCOUNTER → 2020-12-20 07:57 | Outpatient (CLI) | payer OTHER, SELFPAY ==
--- NOTE | 2020-12-20 07:58 | DI.RAD.S_ITS ---
PROCEDURE: XR KNEE RT 3V INDICATIONS: unstable right knee TECHNIQUE: 3 views of the knee were acquired. COMPARISON: None. FINDINGS: Bones: No fractures or dislocations. No suspicious bony lesions. Mild tricompartmental osteoarthritis. Soft tissues: No joint effusion. No suspicious soft tissue calcifications. IMPRESSION: Mild right knee tricompartmental osteoarthritis. Dictated by: Glendy Hurtado MD, PhD on 12/20/2020 at 12:16 Approved by: Glendy Hurtado MD, PhD on 12/20/2020 at 12:17
== END ==
PROVIDERS: PCP Family Medicine; Referring Provider Family Medicine; Visit Provider Family Medicine
DX: M25.361 Other instability, right knee (principal); M17.11 Unilateral primary osteoarthritis, right knee
CPT/HCPCS: 73562

== ENCOUNTER → 2020-12-23 08:08 | Outpatient (CLI) | payer OTHER, SELFPAY ==
--- NOTE | 2020-12-23 08:09 | DI.MRI.S_ITS ---
PROCEDURE: MR KNEE RT WO CON INDICATIONS: unstable knee TECHNIQUE: Noncontrast sagittal PD fast spin echo and T2 fast spin echo with fat saturation, sagittal 3-D FLASH with fat saturation; coronal T1 spin echo and PD fast spin echo with fat saturation, and axial PD fast spin echo with fat saturation through the knee. COMPARISON: None. FINDINGS: Image quality: Excellent. Menisci: Subtle signal abnormality involving posterior horn of medial meniscus which does not extend to articulating surface to meet the criteria of focal meniscal tear . Lateral meniscus is intact. The meniscal root ligaments appear intact. Cruciate ligaments: Attenuated appearance of proximal to mid anterior cruciate ligament with intrasubstance T2 hyperintense signal is seen suggestive of moderate grade intrasubstance partial-thickness tear. No full-thickness ACL rupture. PCL is intact. Medial structures: Low to moderate grade MCL sprain/partial-thickness tear is seen. The posterior oblique ligament, semimembranosus tendon insertions, oblique popliteal ligament, and meniscocapsular junction appear intact. Visualized portions of the pes anserinus tendons appear normal. No abnormal bursal fluid. Lateral structures: The lateral collateral ligament, long and short heads of the biceps femoris tendon appear intact. The popliteus tendon appears normal; the popliteofibular ligament appears intact. The posterosuperior and anteroinferior popliteomeniscal fascicles appear intact. The arcuate and fabellofibular ligaments appear intact, on either side of the lateral inferior geniculate artery. Iliotibial band appears normal. Anterior structures: The quadriceps and patellar tendons appear intact. Patellar alignment is normal. No femoral trochlear dysplasia or ventral trochlear prominence. No edema in the infrapatellar fat pad. Bones and cartilage: There is mild marrow edema involving lateral periphery of lateral femoral condyle weight-bearing portion. Mild edema involving posterior aspect of proximal tibia is seen extending to posterior aspect of medial tibial plateau with subtle internal linear hypointense signal concerning for subcortical fracture in this area. Low-grade chondromalacia in medial femoral tibial compartment and patellofemoral compartment is seen. Joint space: There is small to moderate amount of joint effusion, no gross intra-articular loose body.. No Rob's cyst. Normal appearing synovial plicae are incidentally noted. IMPRESSION: 1. Moderate grade intrasubstance partial-thickness tear involving proximal to mid anterior cruciate ligament. No full-thickness ACL rupture. PCL is intact. 2. Low to moderate grade proximal MCL sprain/partial-thickness tear. 3. Suggestion of bony contusion involving lateral periphery of lateral femoral condyle weight-bearing portion. Suggestion of nondepressed subcortical fracture involving posterior periphery of medial femoral condyle with surrounding edema in posterior aspect of proximal tibia. 4. Small to moderate amount of joint effusion, no gross loose body. Low-grade chondromalacia involving medial femoral tibial compartment and patellofemoral compartment. 5. No definite focal meniscal tear. Suggestion of degenerative changes in posterior horn of medial meniscus. Dictated by: Eugene Khalil M.D. on 12/23/2020 at 9:18 Approved by: Eugene Khalil M.D. on 12/23/2020 at 9:24
== END ==
PROVIDERS: PCP Family Medicine; Referring Provider Family Medicine; Visit Provider Family Medicine
DX: S83.511A Sprain of anterior cruciate ligament of right knee, initial encounter (principal); S83.411A Sprain of medial collateral ligament of right knee, initial encounter; M25.461 Effusion, right knee; M22.41 Chondromalacia patellae, right knee; X58.XXXA Exposure to other specified factors, initial encounter
CPT/HCPCS: 73721

== ENCOUNTER → 2021-04-10 10:55 | Outpatient (CLI) | payer OTHER, SELFPAY | PROVIDERS: PCP Family Medicine; Visit Provider Family Medicine | DX: L98.9 Disorder of the skin and subcutaneous tissue, unspecified (principal) | CPT/HCPCS: 87070; 87077; 87147; 87186; 87205 ==

== ENCOUNTER → 2021-04-20 08:29 | Outpatient (CLI) | payer OTHER, SELFPAY ==
[2021-04-20 09:23] LABS: COVID19 -Nasal RAPID Negative (Negative)
== END ==
PROVIDERS: PCP Family Medicine; Visit Provider Nurse Practitioner Family
DX: R05.9 Cough, unspecified (principal)
CPT/HCPCS: 87635

== ENCOUNTER 2021-04-20 08:52 | Observation (INO) | payer OTHER, SELFPAY ==
[2021-04-20] VITALS (27 sets, daily range): BP systolic 114–168; BP diastolic 60–87; PULSE 75–95; RESP 11–48; TEMP 36.6–36.9; O2SAT 85–99; BMI 25.8
--- NOTE | 2021-04-20 09:12 | DI.RAD.S_ITS ---
PROCEDURE: XR CHEST 1V INDICATIONS: short of breath TECHNIQUE: One view of the chest was acquired. COMPARISON: [facility], CR, XR CHEST 1V, 03/03/2020, 10:49. FINDINGS: Surgical changes and devices: None. Lungs and pleura: Lungs are clear. No pleural effusions or pneumothorax. Mediastinum: Mediastinal contours appear normal. Heart size is normal. Bones and chest wall: Lateral curvature of the spine. IMPRESSION: No acute disease. Dictated by: Garrett Lopez M.D. on 04/20/2021 at 10:06 Approved by: Garrett Lopez M.D. on 04/20/2021 at 10:07
--- NOTE | 2021-04-20 09:14 | ED.SOB ---
HPI - SOB/Dyspnea General Chief Complaint: Shortness of Breath/Dyspnea Stated Complaint: RESPIRATORY ISSUES/COVID SYMPTOMS Time Seen by Provider: 04/20/21 09:03 Source: patient Mode of arrival: Wheelchair Limitations: no limitations History of Present Illness HPI Narrative: Patient is a 55-year-old female history of asthma and hypertension presenting today with increasing shortness of breath. She says it started 5 days ago. She had cough. Since then she has had body aches extreme fatigue sleeping for numerous days decreased appetite chills. She says that she gets coughing spells, unable to catch her breath. She has an albuterol inhaler at home she says she did not get much relief from it. She came from the walk-in clinic where she has COVID test pending she says she is fully vaccinated from COVID. Pain palpitations. Generally does not feel well. Related Data Home Medications Medication Instructions Recorded Confirmed cholecalciferol (vitamin D3) 50 2,000 unit PO DAILY 02/18/18 04/03/21 mcg (2,000 unit) capsule (Vitamin D3) melatonin 5 mg tablet 10 mg PO BEDTIME PRN 02/18/18 04/03/21 omeprazole 20 mg capsule,delayed 20 mg PO PRN PRN 02/18/18 04/03/21 release aspirin 81 mg tablet,delayed 81 mg PO DAILY 03/16/19 04/03/21 release (Enteric Coated Aspirin) Previous Rx's Medication Instructions Recorded beclomethasone dipropionate 80 1 inhalation INHALATION BID #10.6 07/27/19 mcg/actuation HFA breath activated gram aerosol levalbuterol tartrate 45 2 puff INHALATION Q4-6H PRN #15 07/27/19 mcg/actuation aerosol inhaler gram (Xopenex HFA) amlodipine 10 mg tablet 10 mg PO DAILY #90 tab 05/20/20 doxepin 25 mg capsule 25 mg PO BEDTIME #90 cap 05/20/20 levothyroxine 88 mcg tablet 88 mcg PO DAILY #90 tab 05/20/20 metoprolol tartrate 50 mg tablet 50 mg PO BID #180 tab 05/20/20 chlorthalidone 25 mg tablet 12.5 mg PO DAILY #45 tab 05/23/20 fluconazole 100 mg tablet See Rx Instructions PO DAILY #15 09/19/20 tab venlafaxine 75 mg tablet 150 mg PO QDAY #180 tab 11/21/20 fluconazole 100 mg tablet See Rx Instructions PO DAILY #15 01/06/21 tab clonazepam 1 mg tablet See Rx Instructions .ROUTE 03/21/21 .COMPLEX #90 tab mupirocin 2 % topical ointment 1 applic TOP TID #15 gram 04/10/21 Allergies Allergy/AdvReac Type Severity Reaction Status Date / Time atorvastatin Allergy Severe Anaphylaxis Verified 04/20/21 09:07 codeine [CODEINE] Allergy Mild itching Verified 04/20/21 09:07 and hives hydrocodone [HYDROCODONE] Allergy Mild itching Verified 04/20/21 09:07 and hives fluticasone [FLUTICASONE] AdvReac Mild irritabilit Verified 04/20/21 09:07 y metoclopramide AdvReac Mild agitated Verified 04/20/21 09:07 [METOCLOPRAMIDE] zolpidem [ZOLPIDEM] AdvReac Mild agitated Verified 04/20/21 09:07 Review of Systems Review of Systems Narrative: GENERAL: Denies chills, fatigue, malaise, fever, sweats, travel HEENT: Denies sinus pain, ear pain, sore throat, difficulty swallowing, neck pain RESPIRATORY: See HPI CARDIOVASCULAR: Denies chest pain, palpitations, orthopnea, edema GASTROINTESTINAL: Denies nausea, vomiting, abdominal pain, diarrhea, constipation, melena. : Denies dysuria, frequency, incontinence, hematuria, urinary retention, flank pain. MUSCULOSKELETAL: Denies weakness, joint pain, or bony pain SKIN: No rash, no erythema, no pruritus NEUROLOGIC: Denies weakness, dizziness, headache, numbness, change in speech, confusion PSYCHIATRIC: No concerning psychosocial issues. 12 point review of systems is negative except for those stated above and HPI Patient History Medical History (Updated 04/20/21 @ 12:57 by Cleo Mayo DO) Acquired hypothyroidism (12/17/12) Anxiety Asthma Breast cancer Cyst of breast, right, solitary Deep vein thrombosis (DVT) of upper extremity (05/05/14) Depression (05/05/14) DVT (deep venous thrombosis) (~2011) Generalized anxiety disorder GERD (gastroesophageal reflux disease) H/O malignant neoplasm of breast Hirsutism Hypertension Hypothyroidism Ingrown hair Insomnia Intramural leiomyoma of uterus Kidney stones Kidney stones, calcium oxalate 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) Posttraumatic stress disorder (06/30/14) Pyelonephritis Seasonal allergic rhinitis (10/29/14) Sleep apnea in adult (12/13/14) Steatosis of liver (03/07/15) Tobacco use disorder (08/29/16) Surgical History History of lumpectomy History of third molar tooth extraction History of thyroidectomy History of ureter stent Status post laparoscopic cholecystectomy Status post laparoscopic supracervical hysterectomy Status post tonsillectomy and adenoidectomy Social History Smoking Status: Current every day smoker quit status: considering quitting alcohol intake: never Smoking Status: Current every day smoker tobacco type: cigarettes alcohol intake frequency: holidays/special occasions only Substance Use Type: marijuana Exam Initial Vital Signs Initial Vital Signs: Vital Signs Temperature 98.4 F 04/20/21 09:00 Pulse Rate 85 04/20/21 09:00 Respiratory Rate 19 04/20/21 09:00 Blood Pressure 155/83 H 04/20/21 09:00 Pulse Oximetry 94 04/20/21 09:00 GENERAL: Alert 55-year-old female HEENT: Head atraumatic,EOMI, pupils reactive, face symmetric, moist mucous membranes CARDIOVASCULAR: Regular rate and rhythm without murmurs, rubs or gallops. RESPIRATORY: Coarse breath sounds bilaterally mild oozing speaks in full sentences no significant tachypnea ABDOMEN: Soft, nontender. Normoactive bowel sounds all 4 quadrants. No guarding or rebound. EXTREMITIES: Normal range of motion, no clubbing or edema. Neurovascularly intact NEUROLOGICAL: Alert and oriented x4.Normal gait and speech. SKIN: Warm, dry, no laceration, no petechiae, no rashes or lesions. Course Orders Ordered: ED Orders 04/20/21 09:50 Blood Culture Stat 04/20/21 10:40 CT angio chest PE protocol Stat 04/20/21 12:00 Respiratory Panel (Film Array) Stat Acetaminophen (Acetaminophen 325 Mg Tablet) 975 mg PO Q8H PRN PRN Reason: Pain, Mild (1-3) Albuterol (Albuterol 2.5 Mg/3 Ml Neb (Adult)) 2.5 mg INH [id number] PRN PRN Reason: Shortness Of Breath Albuterol/Ipratropium (Albuterol/Ipratropium 3 Ml Ampul) 3 ml INH RTBID MELI Prednisone (Prednisone 20 Mg Tablet) 40 mg PO DAILY MELI Discontinued Medications Albuterol/Ipratropium (Albuterol/Ipratropium 3 Ml Ampul) 3 ml INH NOW ONE Stop: 04/20/21 09:12 Last Admin: 04/20/21 09:36 Dose: 3 ml Documented by: LIVAN Methylprednisolone (Methylprednisolone 125 Mg/2 Ml Vial) 125 mg IV NOW ONE Stop: 04/20/21 09:12 Last Admin: 04/20/21 09:15 Dose: 125 mg Documented by: BUZZ Vital Signs Vital signs: Vital Signs - 8 hr 04/20/21 10:30 04/20/21 11:43 04/20/21 12:00 Pulse Rate 82 81 82 Respiratory Rate 21 11 L Blood Pressure 129/69 Pulse Oximetry 94 97 93 04/20/21 12:11 04/20/21 12:30 Pulse Rate 83 Respiratory Rate 16 Blood Pressure Pulse Oximetry 87 L 95 MDM - SOB/Dyspnea Lab Data Result diagrams: 04/20/21 09:11 04/20/21 09:11 Labs: Lab Results 04/20/21 04/20/21 04/20/21 Range/Units 08:22 09:11 09:11 WBC 8.0 (4.5-11.0) X10^3/uL RBC (4.0-5.2) X10^6/uL Hgb (12.0-16.0) g/dL Hct (36-46) % MCV 87.2 (80-100) fL MCH 29.0 (26-34) PG MCHC 33.2 (30-36) % RDW 13.5 (11.6-14.8) % Plt Count 323 (150-400) X10^3/uL Neut % (Auto) 69.8 (50-75) % Lymph % (Auto) (25-40) % [place] % (Auto) (3-14) % Eos % (Auto) (2-4) % Baso % (Auto) (0-2) % Neut # (Auto) (6289-6707) /uL Lymph # (Auto) 1592 (0612-4290) /uL [place] # (Auto) 592 (0-900) /uL Eos # (Auto) 128 (0-450) /uL Baso # (Auto) 104 H (0-100) /uL D-Dimer > 5250 H (<230) ng/mL Sodium (137-145) mmol/L Potassium (3.4-5.1) mmol/L Chloride (98-107) mmol/L Carbon Dioxide (22-32) mmol/L BUN (7-17) mg/dL Creatinine (0.52-1.04) mg/dL Estimated GFR (>60) mL/min BUN/Creatinine Ratio (6-22) Glucose (70-100) mg/dL Lactate (0.7-2.1) mmol/L Calcium (8.4-10.2) mg/dL Magnesium 2.0 (1.6-2.3) mg/dL Total Bilirubin (0.2-1.3) mg/dL AST (14-36) IU/L ALT (<35) IU/L Alkaline Phosphatase (38-126) U/L Total Creatine Kinase 31 (30-135) U/L CK-MB (CK-2) TNP CK-MB (CK-2) Rel Index TNP Troponin I < 0.012 (0.01-0.034) ng/mL NT-Pro-B Natriuret Pep 181 H (<125) pg/mL Total Protein (6.3-8.2) g/dL Albumin (3.5-5.0) g/dL Globulin (1.7-4.1) g/dL Albumin/Globulin Ratio (1.0-2.8) Procalcitonin 0.09 (<0.5) ng/mL Chlamy pneumoniae PCR (Not Detect) Adenovirus (PCR) (Not Detect) B. pertussis DNA (PCR) (Not Detecte) B.parapertussis DNA PCR (Not Detecte) Coronavirus OC43 (PCR) (Not Detect) Coronavirus HKU1 (PCR) (Not Detect) Coronavirus 229E (PCR) (Not Detect) SARS-CoV-2 (PCR) (Not Detecte) Coronavirus NL63 (PCR) (Not Detect) Human Metapneumovir PCR (Not Detect) Influenza Type A (PCR) (Not Detect) Influenza Type B (PCR) (Not Detect) M. pneumoniae (PCR) (Not Detect) Parainfluenza 1 (PCR) (Not Detect) Parainfluenza 2 (PCR) (Not Detect) Parainfluenza 3 (PCR) (Not Detect) Parainfluenza 4 (PCR) (Not Detect) RSV (PCR) (Not Detect) Entero/Rhino (PCR) (Not Detect) 04/20/21 04/20/21 04/20/21 Range/Units 09:11 09:11 12:00 WBC (4.5-11.0) X10^3/uL RBC (4.0-5.2) X10^6/uL Hgb (12.0-16.0) g/dL Hct (36-46) % MCV (80-100) fL MCH (26-34) PG MCHC (30-36) % RDW (11.6-14.8) % Plt Count (150-400) X10^3/uL Neut % (Auto) (50-75) % Lymph % (Auto) (25-40) % [place] % (Auto) (3-14) % Eos % (Auto) (2-4) % Baso % (Auto) (0-2) % Neut # (Auto) (9849-2137) /uL Lymph # (Auto) (9604-7828) /uL [place] # (Auto) (0-900) /uL Eos # (Auto) (0-450) /uL Baso # (Auto) (0-100) /uL D-Dimer (<230) ng/mL Sodium 140 (137-145) mmol/L Potassium 3.8 (3.4-5.1) mmol/L Chloride 103 (98-107) mmol/L Carbon Dioxide 32 (22-32) mmol/L BUN 9 (7-17) mg/dL Creatinine 0.84 (0.52-1.04) mg/dL Estimated GFR > 60.0 (>60) mL/min BUN/Creatinine Ratio 10.7 (6-22) Glucose 119 H (70-100) mg/dL Lactate 1.0 (0.7-2.1) mmol/L Calcium 9.4 (8.4-10.2) mg/dL Magnesium (1.6-2.3) mg/dL Total Bilirubin 0.6 (0.2-1.3) mg/dL AST 19 (14-36) IU/L ALT 12 (<35) IU/L Alkaline Phosphatase 65 (38-126) U/L Total Creatine Kinase (30-135) U/L CK-MB (CK-2) CK-MB (CK-2) Rel Index Troponin I (0.01-0.034) ng/mL NT-Pro-B Natriuret Pep (<125) pg/mL Total Protein 7.7 (6.3-8.2) g/dL Albumin 4.2 (3.5-5.0) g/dL Globulin 3.5 (1.7-4.1) g/dL Albumin/Globulin Ratio 1.2 (1.0-2.8) Procalcitonin (<0.5) ng/mL Chlamy pneumoniae PCR Not detected (Not Detect) Adenovirus (PCR) Not detected (Not Detect) B. pertussis DNA (PCR) Not detected (Not Detecte) B.parapertussis DNA PCR Not detected (Not Detecte) Coronavirus OC43 (PCR) Not detected (Not Detect) Coronavirus HKU1 (PCR) Not detected (Not Detect) Coronavirus 229E (PCR) Not detected (Not Detect) SARS-CoV-2 (PCR) Not detected (Not Detecte) Coronavirus NL63 (PCR) Not detected (Not Detect) Human Metapneumovir PCR Not detected (Not Detect) Influenza Type A (PCR) Not detected (Not Detect) Influenza Type B (PCR) Not detected (Not Detect) M. pneumoniae (PCR) Not detected (Not Detect) Parainfluenza 1 (PCR) Not detected (Not Detect) Parainfluenza 2 (PCR) Not detected (Not Detect) Parainfluenza 3 (PCR) Not detected (Not Detect) Parainfluenza 4 (PCR) Not detected (Not Detect) RSV (PCR) Not detected (Not Detect) Entero/Rhino (PCR) Detected H (Not Detect) Imaging Data Chest x-ray: Radiologist's Impression: PROCEDURE:? XR CHEST 1V ? INDICATIONS:? short of breath ? TECHNIQUE:? One view of the chest was acquired.? ? COMPARISON:? [facility], CR, XR CHEST 1V, 03/03/2020, 10:49. ? FINDINGS:? ? Surgical changes and devices:? None.? ? Lungs and pleura:? Lungs are clear.? No pleural effusions or pneumothorax.? ? Mediastinum:? Mediastinal contours appear normal.? Heart size is normal.? ? Bones and chest wall:? Lateral curvature of the spine. ? IMPRESSION:? No acute disease. ? ? Dictated by: Garrett Lopez M.D. on 04/20/2021 at 10:06 CT scan - chest: Radiologist's Impression: PROCEDURE:? CT ANGIO CHEST PE PROTOCOL ? INDICATIONS:? hypoxia ? TECHNIQUE:? After the administration of intravenous contrast, 2 mm thick sections acquired from the pulmonary apices to the posterior costophrenic angles.? 3-dimensional maximum intensity projection (MIP) coronal and sagittal reformats were then acquired through the thorax.? For radiation dose reduction, the following was used:? automated exposure control, adjustment of mA and/or kV according to patient size.? ? COMPARISON:? [facility], PVE UNILATERAL RIGHT, 04/04/2012, 13:45.? [facility], BIOPSY BREAST W VACUUM ASST, 08/21/2011, 13:20.? [facility], PVE UNILATERAL RIGHT, 12/19/2011, 9:31.? [facility], PVE UNILATERAL RIGHT, 05/13/2013, 14:53.? [facility], PERIPH VENOUS UP EXTREM MYA, 03/19/2019, 12:42.? [facility], BREAST RT LIMITED, 08/16/2020, 14:51.? [facility], CR, XR CHEST 1V, 04/20/2021, 9:28.? [facility], CR, CHEST 2 VIEW, 03/26/2016, 9:57.? [facility], CR, XR CHEST 1V, 03/03/2020, 10:49.? [facility], CT, PE STUDY (CTA CHEST), 12/19/2011, 11:11.? [facility], CT, PE STUDY (CTA CHEST), 04/23/2012, 11:59.? [facility], CT, CT KUB, 08/11/2017, 8:48. ? FINDINGS:? Image quality:? Excellent.? ? Pulmonary arteries:? Pulmonary arteries are normal in size, and demonstrate no intraluminal filling defects to suggest central pulmonary embolism.? ? Lungs and pleura:? There are innumerable tiny nodules or nodular infiltrates bilaterally mild bronchiectasis in upper lobes.? Mild intralobular septal thickening.? Mild bronchial wall thickening bilaterally.? No focal consolidation.? No pleural effusions or pneumothorax.? Central and peripheral airways are patent.? ? Mediastinum:? Heart size is normal, without pericardial effusion.? Slightly prominent mediastinal or hilar lymph nodes are likely reactive.? Thoracic aorta is normal in caliber and enhancement.? Esophagus is normal in caliber.? There is a small hiatal hernia.? Mild concentric thickening of distal esophagus at the GE junction.? ? Bones and chest wall:? The right subclavian vein is narrow.? There are multiple venous collaterals in the right anterior chest.? No suspicious bony lesions.? Ribs and thoracic spine appear intact throughout.? Thyroid gland is normal.? No axillary or supraclavicular adenopathy.? There is coarse calcification in the retroareolar area of the left breast. ? Abdomen:? There is a 1 cm left adrenal nodule.? Bilateral mild adrenal thickening.? ? IMPRESSION:? ? 1. No evidence for pulmonary embolism. 2. There are innumerable tiny nodules or nodular infiltrates bilaterally with mild intralobular septal thickening and mild bronchial wall thickening bilaterally.? No focal consolidations or pleural pleural effusions. The CT findings are nonspecific.? Differential diagnoses include infectious and inflammatory conditions.? Recommend clinical correlation.? 3. Narrowing of the right subclavian vein with multiple venous collaterals in the right upper anterior chest.? The finding is likely related to history of right upper extremity DVT. 4. Small hiatal hernia.? Mild concentric thickening of GE junction may be secondary to gastroesophageal reflux. ? ? The result was discussed with Dr. Mayo. ? ? Dictated by: Erendira Thomas M.D. on 04/20/2021 at 11:15 ? ? ECG Data Interpretation: Normal sinus rhythm rate 78, NM interval 150 QRS [address] changes no T-wave inversion similar to prior MDM Narrative Medical decision making narrative: The patient does have some coarse breath sounds. She is able to speak in full sentences. She does have intermittent episodes of hypoxia while on the monitor dropping 88% she is placed on 1-2 L. HEENT are at really a CT does not show pulmonary embolism. Probable chronic interstitial lung disease, she continues to smoke. Patient ambulated O2 dropped to 87% on room air. Rhino virus is positive on respiratory panel. The patient will need to be admitted for needing oxygen. Possible COPD exacerbation. Procalcitonin is negative and positive rhino virus no need for antibiotics. Dr. Orozco exam patient's symptoms test results and accepts Discharge Plan Departure Patient Disposition: Admitted as Observation Clinical Impression: Acute exacerbation of chronic obstructive pulmonary disease (COPD) Admit Date/Time: 04/20/21 13:00 Admit Provider: Mayito Orozco
[2021-04-20] MEDS: methylPREDNISolone 125 MG/2 ML VIAL IV (09:15)
[2021-04-20] MEDS: ALBUTEROL/IPRATROPIUM 3 ML AMPUL INH (09:36)
[2021-04-20 09:41] LABS: Mean Corpuscular HGB Conc 33.2 % (30-36); Mean Corpuscular Volume 87.2 fL (80-100); Platelet Count 323 X10^3/uL (150-400); Red Cell Distribution Width 13.5 % (11.6-14.8)
[2021-04-20 09:51] LABS: Neutrophils Percent Auto 69.8 % (50-75)
[2021-04-20 09:52] LABS: Add Manual Diff / Slide Review NO
[2021-04-20 09:55] LABS: Alanine Aminotransferase 12 IU/L (<35); Albumin 4.2 g/dL (3.5-5.0); Albumin Globulin Ratio 1.2 (1.0-2.8); Alkaline Phosphatase 65 U/L (38-126); Aspartate Aminotransferase 19 IU/L (14-36); BUN Creatinine Ratio 10.7 (6-22); Bilirubin Total 0.6 mg/dL (0.2-1.3); Blood Urea Nitrogen 9 mg/dL (7-17); Calcium 9.4 mg/dL (8.4-10.2); Carbon Dioxide 32 mmol/L (22-32); Chloride 103 mmol/L (98-107); Estimated Glomerular Filt Rate > 60.0 mL/min (>60); Globulin 3.5 g/dL (1.7-4.1); Glucose 119 mg/dL (70-100); HEMOLYSIS < 15 (0-50); Potassium 3.8 mmol/L (3.4-5.1); Sodium 140 mmol/L (137-145); Total Protein 7.7 g/dL (6.3-8.2)
[2021-04-20 09:57] LABS: Eosinophils Absolute Auto 128 /uL (0-450); Lymphocytes Absolute Auto 1592 /uL (1100-4500); Monocytes Absolute Auto 592 /uL (0-900)
[2021-04-20 09:58] LABS: Basophils Absolute Auto 104 /uL (0-100)
[2021-04-20 10:07] LABS: NT-proBNP (BNP-Adult 18+) 181 pg/mL (<125); Troponin I < 0.012 ng/mL (0.01-0.034)
[2021-04-20 10:12] LABS: Procalcitonin 0.09 ng/mL (<0.5)
[2021-04-20 10:21] LABS: Creatine Kinase 31 U/L (30-135)
[2021-04-20 10:40] LABS: D Dimer > 5250 ng/mL (<230)
--- NOTE | 2021-04-20 10:40 | DI.CT.S_ITS ---
PROCEDURE: CT ANGIO CHEST PE PROTOCOL INDICATIONS: hypoxia TECHNIQUE: After the administration of intravenous contrast, 2 mm thick sections acquired from the pulmonary apices to the posterior costophrenic angles. 3-dimensional maximum intensity projection (MIP) coronal and sagittal reformats were then acquired through the thorax. For radiation dose reduction, the following was used: automated exposure control, adjustment of mA and/or kV according to patient size. COMPARISON: [facility], PVE UNILATERAL RIGHT, 04/04/2012, 13:45. [facility], BIOPSY BREAST W VACUUM ASST, 08/21/2011, 13:20. [facility], PVE UNILATERAL RIGHT, 12/19/2011, 9:31. [facility], PVE UNILATERAL RIGHT, 05/13/2013, 14:53. [facility], PERIPH VENOUS UP EXTREM MYA, 03/19/2019, 12:42. [facility] BREAST RT LIMITED, 08/16/2020, 14:51. [facility], CR, XR CHEST 1V, 04/20/2021, 9:28. [facility], CR, CHEST 2 VIEW, 03/26/2016, 9:57. [facility], CR, XR CHEST 1V, 03/03/2020, 10:49. [facility], CT, PE STUDY (CTA CHEST), 12/19/2011, 11:11. [facility], CT, PE STUDY (CTA CHEST), 04/23/2012, 11:59. [facility], CT, CT KUB, 08/11/2017, 8:48. FINDINGS: Image quality: Excellent. Pulmonary arteries: Pulmonary arteries are normal in size, and demonstrate no intraluminal filling defects to suggest central pulmonary embolism. Lungs and pleura: There are innumerable tiny nodules or nodular infiltrates bilaterally mild bronchiectasis in upper lobes. Mild intralobular septal thickening. Mild bronchial wall thickening bilaterally. No focal consolidation. No pleural effusions or pneumothorax. Central and peripheral airways are patent. Mediastinum: Heart size is normal, without pericardial effusion. Slightly prominent mediastinal or hilar lymph nodes are likely reactive. Thoracic aorta is normal in caliber and enhancement. Esophagus is normal in caliber. There is a small hiatal hernia. Mild concentric thickening of distal esophagus at the GE junction. Bones and chest wall: The right subclavian vein is narrow. There are multiple venous collaterals in the right anterior chest. No suspicious bony lesions. Ribs and thoracic spine appear intact throughout. Thyroid gland is normal. No axillary or supraclavicular adenopathy. There is coarse calcification in the retroareolar area of the left breast. Abdomen: There is a 1 cm left adrenal nodule. Bilateral mild adrenal thickening. IMPRESSION: 1. No evidence for pulmonary embolism. 2. There are innumerable tiny nodules or nodular infiltrates bilaterally with mild intralobular septal thickening and mild bronchial wall thickening bilaterally. No focal consolidations or pleural pleural effusions. The CT findings are nonspecific. Differential diagnoses include infectious and inflammatory conditions. Recommend clinical correlation. 3. Narrowing of the right subclavian vein with multiple venous collaterals in the right upper anterior chest. The finding is likely related to history of right upper extremity DVT. 4. Small hiatal hernia. Mild concentric thickening of GE junction may be secondary to gastroesophageal reflux. The result was discussed with Dr. Mayo. Dictated by: Erendira Thomas M.D. on 04/20/2021 at 11:15 Approved by: Erendira Thomas M.D. on 04/20/2021 at 11:39
[2021-04-20 13:04] LABS: Adenovirus Not Detected (Not Detect); B. parapertussis Not Detected (Not Detecte); Bordetella pertussis Not Detected (Not Detecte); Chlamydophila pneumoniae Not Detected (Not Detect); Coronavirus 229E Not Detected (Not Detect); Coronavirus HKU1 Not Detected (Not Detect); Coronavirus NL 63 Not Detected (Not Detect); Coronavirus OC43 Not Detected (Not Detect); Human Metapneumovirus Not Detected (Not Detect); Human Rhinovirus/Enterovirus Detected (Not Detect); Influenza A Not Detected (Not Detect); Influenza B Not Detected (Not Detect); Mycoplasma pneumoniae Not Detected (Not Detect); Parainfluenza Virus 1 Not Detected (Not Detect); Parainfluenza Virus 2 Not Detected (Not Detect); Parainfluenza Virus 3 Not Detected (Not Detect); Parainfluenza Virus 4 Not Detected (Not Detect); Respiratory Syncytial Virus Not Detected (Not Detect); SARS- CoV-2 Not Detected (Not Detecte)
--- NOTE | 2021-04-20 20:23 | PM.HP.1 ---
History of Present Illness History of Present Illness Date Patient Seen: 04/20/21 Time Patient Seen: 20:24 Chief complaint: RESPIRATORY ISSUES/COVID SYMPTOMS Narrative: The patient is a 55-year-old female with a history of COPD, hypertension, hypothyroidism, anxiety, asthma, history of breast cancer, history of right upper extremity DVT, who was in her usual state of health until about a week ago. Patient states that she passed out. Initially she thought it was due to her leg giving out given a week ACL. In any event she subsequently felt markedly fatigued such that she was in bed for the past 4 days except for getting up to drink and go to the restroom. She developed cough with thick productive greenish sputum. She has been short of breath and reports persistent wheezing, sweats, and generalized fatigue. She has had some nausea and vomiting. She denies any fever. The patient has had no headache blurred vision or double vision. She had no hematemesis melena or bright red blood per rectum. She denies any dysuria hematuria pyuria. She notes that her urine output has been decreased. She relates this to decreased oral intake. The patient states she was home and her noticed she was not breathing well. She presented to urgent care who then referred her to the emergency room for further evaluation. In the ED the patient underwent CT angio which was negative for pulmonary embolus. The CT showed innumerable tiny nodules or nodular infiltrates bilaterally with mild interlobular septal thickening and mild bronchial wall thickening bilaterally. There is no focal consolidations. Her white count was 8, sodium potassium BUN and creatinine were normal. Procalcitonin normal at 0.09. Patient is SARs COVID to negative. Viral panel was positive for rhino virus. The patient was found to be hypoxic in the emergency room with a room air sat of 87 88%. She is admitted to the hospital with acute respiratory failure secondary to viral pneumonia. The patient does report some chest tightness, his recent with her increasing shortness of breath and wheezing. She has had no pain per se and no radiation of her chest pain. 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) Posttraumatic stress disorder (06/30/14) Pyelonephritis Seasonal allergic rhinitis (10/29/14) Sleep apnea in adult (12/13/14) Steatosis of liver (03/07/15) Tobacco use disorder (08/29/16) Surgical History History of lumpectomy History of third molar tooth extraction History of thyroidectomy History of ureter stent Status post laparoscopic cholecystectomy Status post laparoscopic supracervical hysterectomy Status post tonsillectomy and adenoidectomy Family & Social History Family History (Updated 04/20/21 @ 20:29 by Noelle Huffman MD) Father CAD (coronary artery disease) Safety & Behavioral: Feels Safe in Current Yes Environment Been Physically Hurt or No Threatened By a Person Suicidal Ideation Description None Suicide Plan Description No Plan Tobacco & Substance use: Tobacco type cigarettes Smoking Status Current every day smoker Smoking packs per day 1 alcohol intake never alcohol intake frequency holiday/special occasion Substance Use Type marijuana Meds Home Medications and Allergies Home Medications Medication Instructions Recorded Confirmed Type melatonin 5 mg tablet 10 mg PO BEDTIME PRN 02/18/18 04/03/21 History beclomethasone dipropionate 80 1 inhalation INHALATION BID #10.6 07/27/19 04/03/21 Rx mcg/actuation HFA breath activated gram aerosol doxepin 25 mg capsule 25 mg PO BEDTIME #90 cap 05/20/20 04/03/21 Rx levothyroxine 88 mcg tablet 88 mcg PO DAILY #90 tab 05/20/20 04/03/21 Rx metoprolol tartrate 50 mg tablet 50 mg PO BID #180 tab 05/20/20 04/03/21 Rx clonazepam 1 mg tablet See Rx Instructions .ROUTE 03/21/21 04/03/21 Rx .COMPLEX #90 tab amlodipine 10 mg tablet 10 mg PO BEDTIME 04/20/21 04/20/21 History chlorthalidone 25 mg tablet 12.5 mg PO DAILY PRN 04/20/21 04/20/21 History mupirocin 2 % topical ointment 1 applic TOP TID 04/20/21 04/20/21 History venlafaxine 75 mg tablet 125 mg PO QDAY 04/20/21 04/20/21 History Allergies Allergy/AdvReac Type Severity Reaction Status Date / Time atorvastatin Allergy Severe Anaphylaxis Verified 04/20/21 09:07 codeine [CODEINE] Allergy Mild itching Verified 04/20/21 09:07 and hives hydrocodone [HYDROCODONE] Allergy Mild itching Verified 04/20/21 09:07 and hives fluticasone [FLUTICASONE] AdvReac Mild irritabilit Verified 04/20/21 09:07 y metoclopramide AdvReac Mild agitated Verified 04/20/21 09:07 [METOCLOPRAMIDE] zolpidem [ZOLPIDEM] AdvReac Mild agitated Verified 04/20/21 09:07 Review of Systems Review of Systems Narrative: 10 point review of systems is negative except as above Exam Vital Signs (past 8 hours): - 04/20/21 12:30 04/20/21 13:01 04/20/21 13:30 Temperature Pulse Rate 83 93 H 85 Respiratory Rate 16 48 H 31 H Blood Pressure Pulse Oximetry 95 85 L 96 04/20/21 13:59 04/20/21 14:00 04/20/21 14:01 Temperature Pulse Rate 85 86 88 Respiratory Rate 18 24 18 Blood Pressure 139/62 139/63 Pulse Oximetry 96 96 96 04/20/21 14:30 04/20/21 14:31 04/20/21 15:00 Temperature Pulse Rate 95 H 86 78 Respiratory Rate 24 19 14 Blood Pressure 168/67 H Pulse Oximetry 94 95 96 04/20/21 15:01 04/20/21 15:30 04/20/21 16:00 Temperature Pulse Rate 81 85 83 Respiratory Rate 12 17 17 Blood Pressure 129/67 126/66 122/70 Pulse Oximetry 97 96 96 04/20/21 16:30 04/20/21 17:00 04/20/21 17:16 Temperature 97.9 F Pulse Rate 85 86 91 H Respiratory Rate 15 19 18 Blood Pressure 114/71 129/74 142/87 H Pulse Oximetry 94 95 95 Oxygen Delivery Method Nasal Cannula Oxygen Flow Rate 2 Narrative Exam Narrative: Pleasant female lying in bed in no obvious distress HENPR Other: HEENT: Normocephalic atraumatic, extraocular muscles are intact, oropharynx is clear, there has moist mucous membranes, neck is supple without adenopathy or thyromegaly Resp Other: Lungs: Decreased breath sounds with scattered rhonchi and bilateral end-expiratory wheezing Cardio Other: Cardiac exam: Regular rate and rhythm normal S1-S2 GI Other: Abdomen: Soft nontender nondistended no appreciable hepatosplenomegaly Skin Other: No lesions noted Neuro Other: Cranial nerves 2-12 are intact, motor 5/5 in the upper extremities 5/5 in lower extremities sensations grossly intact Extrem Other: Extremity no edema Psych Other: Normal thought content, and thought processing, normal judgment, mood and affect is within normal limits. Mental status appears appropriate. Answers questions appropriately, no hallucinations, or other obvious psychiatric issues Objective Labs Result Diagrams: 04/20/21 09:11 04/20/21 09:11 Labs: Laboratory Results - last 24 hr 04/20/21 04/20/21 04/20/21 08:22 09:11 09:11 WBC 8.0 RBC Hgb Hct MCV 87.2 MCH 29.0 MCHC 33.2 RDW 13.5 Plt Count 323 Neut % (Auto) 69.8 Lymph % (Auto) [place] % (Auto) Eos % (Auto) Baso % (Auto) Neut # (Auto) Lymph # (Auto) 1592 [place] # (Auto) 592 Eos # (Auto) 128 Baso # (Auto) 104 H D-Dimer > 5250 H Sodium Potassium Chloride Carbon Dioxide BUN Creatinine Estimated GFR BUN/Creatinine Ratio Glucose Lactate Calcium Magnesium 2.0 Total Bilirubin AST ALT Alkaline Phosphatase Total Creatine Kinase 31 CK-MB (CK-2) TNP CK-MB (CK-2) Rel Index TNP Troponin I < 0.012 NT-Pro-B Natriuret Pep 181 H Total Protein Albumin Globulin Albumin/Globulin Ratio Procalcitonin 0.09 Chlamy pneumoniae PCR Adenovirus (PCR) B. pertussis DNA (PCR) B.parapertussis DNA PCR Coronavirus OC43 (PCR) Coronavirus HKU1 (PCR) Coronavirus 229E (PCR) SARS-CoV-2 (PCR) Coronavirus NL63 (PCR) Human Metapneumovir PCR Influenza Type A (PCR) Influenza Type B (PCR) M. pneumoniae (PCR) Parainfluenza 1 (PCR) Parainfluenza 2 (PCR) Parainfluenza 3 (PCR) Parainfluenza 4 (PCR) RSV (PCR) Entero/Rhino (PCR) 04/20/21 04/20/21 04/20/21 09:11 09:11 12:00 WBC RBC Hgb Hct MCV MCH MCHC RDW Plt Count Neut % (Auto) Lymph % (Auto) [place] % (Auto) Eos % (Auto) Baso % (Auto) Neut # (Auto) Lymph # (Auto) [place] # (Auto) Eos # (Auto) Baso # (Auto) D-Dimer Sodium 140 Potassium 3.8 Chloride 103 Carbon Dioxide 32 BUN 9 Creatinine 0.84 Estimated GFR > 60.0 BUN/Creatinine Ratio 10.7 Glucose 119 H Lactate 1.0 Calcium 9.4 Magnesium Total Bilirubin 0.6 AST 19 ALT 12 Alkaline Phosphatase 65 Total Creatine Kinase CK-MB (CK-2) CK-MB (CK-2) Rel Index Troponin I NT-Pro-B Natriuret Pep Total Protein 7.7 Albumin 4.2 Globulin 3.5 Albumin/Globulin Ratio 1.2 Procalcitonin Chlamy pneumoniae PCR Not detected Adenovirus (PCR) Not detected B. pertussis DNA (PCR) Not detected B.parapertussis DNA PCR Not detected Coronavirus OC43 (PCR) Not detected Coronavirus HKU1 (PCR) Not detected Coronavirus 229E (PCR) Not detected SARS-CoV-2 (PCR) Not detected Coronavirus NL63 (PCR) Not detected Human Metapneumovir PCR Not detected Influenza Type A (PCR) Not detected Influenza Type B (PCR) Not detected M. pneumoniae (PCR) Not detected Parainfluenza 1 (PCR) Not detected Parainfluenza 2 (PCR) Not detected Parainfluenza 3 (PCR) Not detected Parainfluenza 4 (PCR) Not detected RSV (PCR) Not detected Entero/Rhino (PCR) Detected H Assessment & Plan Assessment & Plan narrative: 55-year-old female admitted to the hospital with a history of COPD/asthma now with acute respiratory failure secondary to rhino virus and exacerbation of COPD Patient with underlying COPD, likely worsened by rhino virus infection No evidence of sepsis, lactate 1.0, no end-organ damage No evidence of bacterial infection, on CT angio which revealed no pulmonary embolus, but bilateral bronchial thickening Agree with plan for steroids, albuterol Atrovent inhaler, and steroid inhaler Patient is agreeable to quitting smoking, she has nicotine gum at this time for nicotine dependence Agree with no need for antibiotics at this point, continue oxygen, goal is to wean off at discharge Would recommend outpatient pulmonary function studies once the patient recovers from this acute infection Hypertension Continue usual antihypertensives, amlodipine, chlorthalidone, and metoprolol Hypothyroidism Continue L-thyroxine Depression/anxiety Continue Venlafaxine Continue Doxepin for sleep Continue clonazepam as needed Will initiate Lovenox for DVT prophylaxis Patient is a full code and will note that her record accordingly. She reports her is her surrogate decision maker. Patient will be admitted as an inpatient I have utilized all available resources to review update and confirm patient's current medications Time Spent With Patient Critical Care time: I spent a total of [] minutes of critical care time on this patient's care today; this time is exclusive of procedural time. Quality VTE Deep Vein Thrombosis/Pulmonary Embolism Present on Admission: No
[2021-04-20] MEDS: MELATONIN 3 MG TABLET 9 MG PO (21:02)
[2021-04-20] MEDS: METOPROLOL IR 50 MG TABLET PO (21:03)
[2021-04-20] MEDS: clonazePAM 0.5 MG TABLET PO (21:03)
[2021-04-20] MEDS: AMLODIPINE 5 MG TABLET 10 MG PO (21:03)
[2021-04-21] MEDS: ALBUTEROL 2.5 MG/3 ML NEB (ADULT) INH (01:44)
[2021-04-21 01:58] VITALS: PULSE 88; RESP 18; O2SAT 97
[2021-04-21 02:29] VITALS: BP 146/85; PULSE 85; RESP 22; TEMP 36.3; O2SAT 94
[2021-04-21 05:47] LABS: Add Manual Diff / Slide Review NO; Basophils Absolute Auto 100 /uL (0-100); Basophils Percent Auto 0.5 % (0-2); Eosinophils Absolute Auto 0 /uL (0-450); Eosinophils Percent Auto 0.1 % (2-4); Hemoglobin 14.7 g/dL (12.0-16.0); Lymphocytes Absolute Auto 2200 /uL (1100-4500); Lymphocytes Percent Auto 15.5 % (25-40); Mean Corpuscular HGB Conc 32.7 % (30-36); Mean Corpuscular Hemoglobin 28.5 PG (26-34); Mean Corpuscular Volume 87.2 fL (80-100); Monocytes Absolute Auto 900 /uL (0-900); Monocytes Percent Auto 6.6 % (3-14); Neutrophils Absolute Auto 10900 /uL (1500-7000); Neutrophils Percent Auto 77.3 % (50-75); Platelet Count 364 X10^3/uL (150-400); Red Blood Cell Count 5.16 X10^6/uL (4.0-5.2); Red Cell Distribution Width 13.7 % (11.6-14.8); White Blood Cell Count 14.1 X10^3/uL (4.5-11.0)
[2021-04-21 05:55] LABS: BUN Creatinine Ratio 21.1 (6-22); Blood Urea Nitrogen 15 mg/dL (7-17); Calcium 9.7 mg/dL (8.4-10.2); Carbon Dioxide 35 mmol/L (22-32); Chloride 100 mmol/L (98-107); Estimated Glomerular Filt Rate > 60.0 mL/min (>60); Glucose 128 mg/dL (70-100); HEMOLYSIS < 15 (0-50); Magnesium 2.2 mg/dL (1.6-2.3); Potassium 3.9 mmol/L (3.4-5.1); Sodium 142 mmol/L (137-145)
--- NOTE | 2021-04-21 06:39 | PC.NURSE ---
alert/oriented. voices needs. SBA mobility. SOB w/ exertion, tolerated short distance to / from bathroom to bed. PC w/ thick cloudy sputum noted early this morning. IS given. BC pending. Tele: NSR. call light w/in reach.
[2021-04-21 07:00] VITALS: BP 147/84; PULSE 79; RESP 14; TEMP 36.9; O2SAT 96
[2021-04-21] MEDS: LEVOTHYROXINE 88 MCG TABLET PO (07:44)
[2021-04-21 09:03] VITALS: PULSE 78; RESP 18; O2SAT 95
[2021-04-21] MEDS: ALBUTEROL/IPRATROPIUM 3 ML AMPUL INH (09:03)
[2021-04-21 09:11] VITALS: PULSE 89; RESP 19; O2SAT 97
[2021-04-21] MEDS: BUDESONIDE 0.5 MG/2 ML NEB INH (09:11)
[2021-04-21 09:26] VITALS: BP 142/79; PULSE 86; RESP 19; TEMP 36.8; O2SAT 95
[2021-04-21] MEDS: clonazePAM 0.5 MG TABLET PO (09:30)
[2021-04-21] MEDS: METOPROLOL IR 50 MG TABLET PO (09:30)
[2021-04-21] MEDS: ENOXAPARIN 40 MG/0.4 ML SYRINGE SUBCUT (09:30)
[2021-04-21] MEDS: ACETAMINOPHEN 325 MG TABLET 975 MG PO (09:30)
[2021-04-21] MEDS: VENLAFAXINE 37.5 MG TABLET 112.5 MG PO (09:48)
--- NOTE | 2021-04-21 11:12 | P.DS_ITS ---
History of Present Illness History of Present Illness Date Patient Seen: 04/21/21 Time Patient Seen: 11:12 Chief complaint: RESPIRATORY ISSUES/COVID SYMPTOMS Narrative: Per Dr. Huffman, The patient is a 55-year-old female with a history of COPD, hypertension, hypothyroidism, anxiety, asthma, history of breast cancer, history of right upper extremity DVT, who was in her usual state of health until about a week ago.? Patient states that she passed out.? Initially she thought it was due to her leg giving out given a week ACL.? In any event she subsequently felt ma rkedly fatigued such that she was in bed for the past 4 days except for getting up to drink and go to the restroom.? She developed cough with thick productive greenish sputum.? She has been short of breath and reports persistent wheezing, sweats, and generalized fatigue.? She has had some nausea and vomiting.? She denies any fever.? The patient has had no headache blurred vision or double vision.? She had no hematemesis melena or bright red blood per rectum.? She denies any dysuria hematuria pyuria.? She notes that her urine output has been decreased.? She relates this to decreased oral intake.? The patient states she was home and her noticed she was not breathing well.? She presented to urgent care who then referred her to the emergency room for further evaluation.? In the ED the patient underwent CT angio which was negative for pulmonary embolus.? The CT showed innumerable tiny nodules or nodular infiltrates bilaterally with mild interlobular septal thickening and mild bronchial wall thickening bilaterally.? There is no focal consolidations.? Her white count was 8, sodium potassium BUN and creatinine were normal.? Procalcitonin normal at 0.09.? Patient is SARs COVID to negative.? Viral panel was positive for rhino virus.? The patient was found to be hypoxic in the emergency room with a room air sat of 87 88%.? She is admitted to the hospital with acute respiratory constantin lure secondary to viral pneumonia.? The patient does report some chest tightness, his recent with her increasing shortness of breath and wheezing.? She has had no pain per se and no radiation of her chest pain. Discharge Providers Provider Date of admission: 04/20/21 13:00 Discharge Date: 04/21/21 Primary care physician: Christine Smith DO Consults: 04/20/21 09:11 Consult to Respiratory Therapy Evaluate & Treat Comment: Physician Instructions: Evaluate and treat 04/20/21 17:12 Consult to Respiratory Therapy Evaluate & Treat Comment: Physician Instructions: Evaluate and treat Discharge provider: Mayito Orozco DO Summary Hospital Course Discharge Diagnosis: 1. COPD exacerbation secondary to acute rhinovirus viral infection and acute respiratory failure with hypoxia, improved. 2. HTN, chronic 3. Hypothyroidism, chronic 4. Depression and anxiety, chronic 5. Tobacco use Hospital Course: 55-year-old female admitted to the hospital with a history of COPD/asthma now with acute respiratory failure secondary to rhino virus and exacerbation of COPD. Patient is also a smoker but is now agreeable to cessation strategies. She improved rapidly with initial therapies including nebulizer treatments and steroids. She was initially desaturating into the mid 80s on room air and required some supplemental oxygen. The following morning her O2 saturations were in the low to mid 90s on room air and her symptoms had improved. She was subsequently discharged home. Due to prior reactions to prednisone the patient did not wish to take 40 mg, but was agreeable to 10 mg which she will continue for another 4 days along with azithromycin for anti-inf lammatory effect She was also discharged home with a nebulizer machine and albuterol. No other changes to her chronic home medications were made. Exam Vital Signs (past 8 hours): - 04/21/21 07:00 04/21/21 09:03 04/21/21 09:11 Temperature 98.4 F Pulse Rate 79 78 89 Respiratory Rate 14 18 19 Blood Pressure 147/84 H Pulse Oximetry 96 95 97 04/21/21 09:26 Temperature 98.3 F Pulse Rate 86 Respiratory Rate 19 Blood Pressure 142/79 H Pulse Oximetry 95 Oxygen Delivery Method Room Air Oxygen Flow Rate 0 Narrative Exam Narrative: Pleasant female lying in bed in no obvious distress HENPR Other:?HEENT:? Normocephalic atraumatic, extraocular muscles are intact, adam pharynx is clear, there has moist mucous membranes, neck is supple without adenopathy or thyromegaly Resp Other:?Lungs: Decreased breath sounds with scattered rhonchi and bilateral end- expiratory wheezing Cardio Other:?Cardiac exam: Regular rate and rhythm normal S1-S2 Skin Other:?No lesions noted Neuro Other:?Cranial nerves 2-12 are intact, motor 5/5 in the upper extremities 5/5 in lower extremities sensations grossly intact Extrem Other:?Extremity no edema, no joint effusions Psych Other:?Normal thought content, and thought processing, normal judgment, mood and affect is within normal limits.? Mental status appears appropriate.? Answers que stions appropriately, no hallucinations, or other obvious psychiatric issues Objective Labs Result Diagrams: 04/21/21 05:30 04/21/21 05:30 Labs: Laboratory Results - last 24 hr 04/20/21 04/21/21 04/21/21 12:00 05:30 05:30 WBC 14.1 H D RBC 5.16 Hgb 14.7 Hct 45.0 MCV 87.2 MCH 28.5 MCHC 32.7 RDW 13.7 Plt Count 364 Neut % (Auto) 77.3 H Lymph % (Auto) 15.5 L [place] % (Auto) 6.6 Eos % (Auto) 0.1 L Baso % (Auto) 0.5 Neut # (Auto) 18086 H Lymph # (Auto) 2200 [place] # (Auto) 900 Eos # (Auto) 0 Baso # (Auto) 100 Sodium 142 Potassium 3.9 Chloride 100 Carbon Dioxide 35 H BUN 15 Creatinine 0.71 Estimated GFR > 60.0 BUN/Creatinine Ratio 21.1 Glucose 128 H Calcium 9.7 Magnesium 2.2 Chlamy pneumoniae PCR Not detected Adenovirus (PCR) Not detected B. pertussis DNA (PCR) Not detected B.parapertussis DNA PCR Not detected Coronavirus OC43 (PCR) Not detected Coronavirus HKU1 (PCR) Not detected Coronavirus 229E (PCR) Not detected SARS-CoV-2 (PCR) Not detected Coronavirus NL63 (PCR) Not detected Human Metapneumovir PCR Not detected Influenza Type A (PCR) Not detected Influenza Type B (PCR) Not detected M. pneumoniae (PCR) Not detected Parainfluenza 1 (PCR) Not detected Parainfluenza 2 (PCR) Not detected Parainfluenza 3 (PCR) Not detected Parainfluenza 4 (PCR) Not detected RSV (PCR) Not detected Entero/Rhino (PCR) Detected H [facility] Medical History Acquired hypothyroidism (12/17/12) Anxiety Asthma Breast cancer Cyst of breast, right, solitary Deep vein thrombosis (DVT) of upper extremity (05/05/14) Depression (05/05/14) DVT (deep venous thrombosis) (~2011) Generalized anxiety disorder GERD (gastroesophageal reflux disease) H/O malignant neoplasm of breast Hirsutism Hypertension Hypothyroidism Ingrown hair Insomnia Intramural leiomyoma of uterus Kidney stones Kidney stones, calcium oxalate 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) Posttraumatic stress disorder (06/30/14) Pyelonephritis Seasonal allergic rhinitis (10/29/14) Sleep apnea in adult (12/13/14) Steatosis of liver (03/07/15) Tobacco use disorder (08/29/16) Surgical History History of lumpectomy History of third molar tooth extraction History of thyroidectomy History of ureter stent Status post laparoscopic cholecystectomy Status post laparoscopic supracervical hysterectomy Status post tonsillectomy and adenoidectomy Family History (Updated 04/20/21 @ 20:29 by Noelle Huffman MD) Father CAD (coronary artery disease) Social History Smoking Status: Current every day smoker quit status: considering quitting alcohol intake: never Discharge Plan Discharge Plan Patient Disposition: Home Provider Discharge Comment: You were admitted to the hospital with COPD exacerbation due to a rhinovirus (common cold virus). You improved with therapies here in the hospital. Continue small dose prednisone at home, and I have sent a prescription for a nebulizer machine for use at home as well. Continue azithromycin for inflammation at home as well. Discharge orders & Medications Prescriptions: New azithromycin 250 mg tablet See Rx Instructions .ROUTE .COMPLEX Qty: 6 RF: 0 (DME) nebulizer and compressor Device See Rx Instructions .Route Qty: 1 RF: 0 albuterol sulfate 0.63 mg/3 mL solution for nebulization 0.63 mg inhalation QID PRN (Reason: shortness of breath or wheezing) 30 Days Qty: 90 RF: 0 prednisone 10 mg tablet 10 mg PO DAILY 4 Days Qty: 4 RF: 0 Continued clonazepam 1 mg tablet See Rx Instructions .ROUTE .COMPLEX Qty: 90 RF: 0 beclomethasone dipropionate 80 mcg/actuation HFA aerosol breath activated 1 inhalation INHALATION BID Qty: 10.6 RF: 5 doxepin 25 mg capsule 25 mg PO BEDTIME Qty: 90 RF: 3 levothyroxine 88 mcg tablet 88 mcg PO DAILY Qty: 90 RF: 3 metoprolol tartrate 50 mg tablet 50 mg PO BID Qty: 180 RF: 3 melatonin 5 mg Tablet 10 mg PO BEDTIME PRN (Reason: Insomnia) RF: 0 venlafaxine 75 mg tablet 125 mg PO QDAY RF: 0 chlorthalidone 25 mg tablet 12.5 mg PO DAILY PRN (Reason: Fluid retention) RF: 0 amlodipine 10 mg tablet 10 mg PO BEDTIME RF: 0 mupirocin 2 % ointment 1 applic TOP TID RF: 0 Follow up/Referrals: Christine Smith DO [Primary Care Provider] - Diet/Activity/Treatments Diet: Diet as Tolerated Activity: As tolerated Visit Report/Discharge Packet Instructions: Chronic Obstructive Pulmonary Disease, Common Cold, DI for Severe Acute Respiratory Syndrome, Control the Craving to Smoke, Support for Smokers Wanting to Quit Discharge Data Primary Care Provider: Christine Smith Attending Provider: Mayito Orozco VTE Deep Vein Thrombosis/Pulmonary Embolism Present on Admission: No
--- NOTE | 2021-04-21 11:53 | PC.NURSE ---
Day shift: Paperwork signed and all questions answered. Pt encouraged to call her PCP and let them know she was in hospital. Pt has all personal belongings. scripts sent to Pt's pharmacy electronic. Pt's sister was in room for teachings. Pt also receptive to quit smoking teachings. Pt on RA with O2 of 94%. Uses I[employer]S. proper and took it home to use. Taken to car in and sister is driving her home. Left unit at approx 1155.
--- NOTE | 2021-04-21 15:20 | CM.DANOTE ---
DCP assessment: Patient is a 55 yr old female who was admitted for COPD exacerbation. Patient lives in a single level home with her Mayito and will have the assistance of her sister Veronica who lives near by. Patient is Independent and drives at her baseline. CM met with patient and explained role. patient was alert and oriented at time of CM visit. I [place] and self pay Plan: DC home with family with sister transporting her home. no identified DC planning needs at this time. CM department to follow to assist with any new DC planning needs that may arise. Discharge Planning/Care Management CM Discharge Assessment Start: 04/21/21 15:09 Freq: Status: Active Protocol: Document 04/21/21 12:00 HS (Rec: 04/21/21 15:20 HS [id number]) Discharge Planning Assessment Assigned Mail Technician [place] [employer] and gas field technician DPOA/Assigned Designee Name Mayito Dumas ( Spouse) Contact Information [phone] Advance Directives? No History Provided By Patient Has Patient been admitted in last 30 No days? Prior Living Arrangements House Household Members spouse Type of transporation used prior to Drives own vehicle admit Independent with ADL's Yes Is patient alert and oriented? Yes Barriers to Discharge No Discharge Plan Home Transportation Arrangement Sister will drive her home Referrals Initiated None needed Whiteboard Updated in Patient Room with Yes name and ext. # of Mail Technician Review Status In Process Next Review Type Continued Stay Review
== END 2021-04-21 12:03 | disposition home or self-care (01) ==
LOC: ED 12:57 → AC 13:01
PROVIDERS: Admitting Provider Internal Medicine; Emergency Provider Emergency Medicine; PCP Family Medicine; Referring Provider Emergency Medicine; Visit Provider Internal Medicine
DX: J96.01 Acute respiratory failure with hypoxia (principal); J44.1 Chronic obstructive pulmonary disease with (acute) exacerbation; J12.89 Other viral pneumonia; B97.89 Other viral agents as the cause of diseases classified elsewhere; F17.210 Nicotine dependence, cigarettes, uncomplicated; F32.9 Major depressive disorder, single episode, unspecified; F41.9 Anxiety disorder, unspecified; E03.9 Hypothyroidism, unspecified; I10 Essential (primary) hypertension; K21.9 Gastro-esophageal reflux disease without esophagitis; Z20.822 Contact with and (suspected) exposure to COVID-19; R05.9 Cough, unspecified
CPT/HCPCS: 36415; 71045; 71275; 80048; 80053; 82550; 83605; 83735; 83880; 84145; 84484; 85025; 85379; 87040; 87633; 87635; 93005; 93010; 94640; 94762; 96374; 99284; 99285; G0378; J1650; J2930; J7613; Q9967

== ENCOUNTER → 2021-05-31 08:49 | Outpatient (CLI) | payer OTHER, SELFPAY ==
[2021-04-20 17:59] VITALS: BMI 25.8
[2021-05-31 11:15] LABS: COVID19 - ADMIT (NP swab/PCR) Negative (Negative)
== END ==
PROVIDERS: PCP Family Medicine; Referring Provider Internal Medicine; Visit Provider Internal Medicine
DX: Z20.822 Contact with and (suspected) exposure to COVID-19 (principal)
CPT/HCPCS: C9803; U0003

== ENCOUNTER → 2021-06-01 06:51 | Outpatient (CLI) | payer OTHER, SELFPAY ==
[2021-04-20 17:59] VITALS: BMI 25.8
--- NOTE | 2021-06-12 09:14 | PM.PFT.1 ---
Pulmonary Function Test Referral & Results Date Patient Seen: 06/01/21 Requesting provider: Christine Smith Indication: COPD Results: The spirometry demonstrates an FVC of 2.44 L which is 60% of predicted. The FEV1 was measured at 1.64 L which is 59% of predicted. The FEV1/FVC ratio was 67 which is 84% of predicted. Lung volumes show an SVC of 2.58 L which is 79% of predicted. The diffusing capacity was measured at 20.98 which is 81% of predicted. The maximum voluntary ventilation was reduced Interpretation: This study demonstrates mild to moderate obstructive lung disease based on reduction FEV1 and FEV1/FVC ratio. There is also a reduction in lung volumes and minimal reduction in diffusing capacity suggesting disease at the capillary alveolar level Altogether this is consistent with a diagnosis of COPD Compared to PFTs performed in August 2017, current study is essentially unchanged (only spirometry was done on previous study)
== END ==
PROVIDERS: PCP Family Medicine; Referring Provider Family Medicine; Visit Provider Family Medicine
DX: J44.9 Chronic obstructive pulmonary disease, unspecified (principal)
CPT/HCPCS: 94010; 94726; 94729

== ENCOUNTER → 2021-08-31 10:44 | Outpatient (CLI) | payer OTHER, SELFPAY ==
[2021-04-20 17:59] VITALS: BMI 25.8
--- NOTE | 2021-08-31 | DI.RAD.S_ITS ---
PROCEDURE: XR CERVICAL SPINE MIN 6V INDICATIONS: Cervicalgia TECHNIQUE: 7 views of the cervical spine were acquired including flexion and extension and oblique views.. COMPARISON: None. FINDINGS: Bones: No fractures or dislocations to the T2 level. No suspicious bony lesions. There is reduced range of motion between flexion and extension, with preserved normal bony alignment. Moderate C5-C6 and C6-C7 degenerative disc disease. Mild C3-C4, C4-C5 and C7-T1 degenerative disease. Mild C2-C3, C3-C4, C4-C5, C5-C6, C6-C7 and C7-T1 facet hypertrophy. Moderate bilateral C4-C5 and C6-C7 uncovertebral joint hypertrophy. Mild bilateral C3-C4 uncovertebral joint hypertrophy. Moderate bilateral C5-C6 and C6-C7 neural foraminal narrowing. Mild right C3-C4 neural foraminal narrowing Soft tissues: Prevertebral soft tissues are normal in thickness. IMPRESSION: 1. Multilevel degenerative disc disease. 2. Multilevel facet arthropathy. 3. No fracture. No acute osseous lesion. If symptoms and/or clinical suspicion for pathology persists, evaluation with MRI should be considered for further assessment. Dictated by: Glendy Hurtado MD, PhD on 08/31/2021 at 11:30 Approved by: Glendy Hurtado MD, PhD on 08/31/2021 at 11:33
== END ==
PROVIDERS: PCP Family Medicine; Referring Provider Chiropractor; Visit Provider Chiropractor
DX: M50.11 Cervical disc disorder with radiculopathy, high cervical region (principal); M47.22 Other spondylosis with radiculopathy, cervical region; M48.02 Spinal stenosis, cervical region
CPT/HCPCS: 72052

== ENCOUNTER → 2021-12-26 08:48 | Outpatient (CLI) | payer OTHER, SELFPAY ==
[2021-04-20 17:59] VITALS: BMI 25.8
--- NOTE | 2021-12-26 | DI.US.S_ITS ---
LIMITED ULTRASOUND OF LEFT BREAST: 12/26/2021 CLINICAL: Palpable left breast lump. Comparison is made to exams dated: 12/26/2021 mammogram, 08/16/2020 mammogram, and 12/22/2019 mammogram - [facility]. Real-time ultrasound of the left breast 12 o'clock region was performed. Hatfield scale images of the real-time examination were reviewed. There is a benign post-surgical scar in the left breast at 12 o'clock anterior depth. This correlates as palpated and with mammography findings. IMPRESSION: BENIGN There is no sonographic evidence of malignancy. Palpable abnormality corresponds to the lumpectomy scar/dystrophic calcifications. This is just deep to the skin. Exam findings were discussed with the patient. Patient is advised to monitor for significant change. Clinical follow-up as needed. A 1 year screening mammogram is recommended. This exam was interpreted at Station ID: [id number]. Electronically Signed By: Mayo Gutiérrez M.D. slc/:12/26/2021 10:24:55 letter sent: Clinical Evaluation Ultrasound BI-RADS: 2 Benign
--- NOTE | 2021-12-26 | DI.MG.S_ITS ---
BILATERAL DIGITAL DIAGNOSTIC MAMMOGRAM 3D/2D: 12/26/2021 CLINICAL: Left breast lump. History of breast cancer. Comparison is made to exams dated: 08/16/2020 mammogram, 12/22/2019 mammogram, 05/11/2019 mammogram, 11/07/2018 mammogram, 10/22/2018 mammogram, and 10/12/2015 mammogram - [facility]. The tissue of both breasts is predominantly fatty. No significant masses, calcifications, or other findings are seen in either breast. Stable dystrophic calcification at the left breast lumpectomy site. This is slightly increased calcification compared to 2016. There are multiple surgical clips. There is a curvilinear area of calcification which corresponds to palpated area. Biopsy clip in the right breast. IMPRESSION: INCOMPLETE: NEEDS ADDITIONAL IMAGING EVALUATION No mammographic evidence of malignancy. Stable left breast lumpectomy site with dystrophic calcification which corresponds to the palpable site. A second look with US is recommended and will immediately follow. This exam was interpreted at Station ID: [id number]. NOTE: For mammograms, a report in lay terms will be sent to the patient. Approximately 15% of breast malignancies will not be visualized mammographically. In the management of a palpable breast mass, a negative mammogram must not discourage biopsy of a clinically suspicious lesion. Electronically Signed By: Mayo Gutiérrez M.D. slc/:12/26/2021 10:13:08 ACR BI-RADS Category 0: Incomplete [id number]
== END ==
PROVIDERS: PCP Family Medicine; Referring Provider Family Medicine; Visit Provider Family Medicine
DX: N64.4 Mastodynia (principal); L90.5 Scar conditions and fibrosis of skin; Z85.3 Personal history of malignant neoplasm of breast; R92.2 Inconclusive mammogram
CPT/HCPCS: 76642; 77066; G0279

== ENCOUNTER 2022-02-13 08:03 | Day surgery (SDC) | payer OTHER, SELFPAY ==
[2021-04-20 17:59] VITALS: BMI 25.8
[2022-02-02 09:41] VITALS: BMI 28.8
[2022-02-13] VITALS (8 sets, daily range): BP systolic 96–128; BP diastolic 52–81; PULSE 78–94; RESP 15–18; TEMP 36.2–36.9; O2SAT 95–100; BMI 28.8
--- NOTE | 2022-02-13 | PATH_ITS ---
[facility] Accession Number: [id number] . 01 Material submitted: . breast - LEFT BREAST TISSUE . 01 Clinical history: . L BREAST LUMPECTOMY . 01 Diagnosis: Left Breast Tissue, Lumpectomy: Benign breast parenchyma with fat necrosis and associated dystrophic calcification. No atypical hyperplasia, in situ or invasive malignancy. MRV 02/15/2022 1433 Local . 01 Electronically signed: . Karime Casillas MD, Pathologist NPI- [id number] . 01 Gross description: . Received in formalin labeled with the patient's name and left breast tissue and consists of a 10 gram unoriented fragment of fibroadipose tissue measuring 5.8 x 2.3 x 1.2 cm. The external surface is inked blue. The specimen is serially sectioned to reveal a yellow fairly well-defined hard area consistent with calcification, measuring 3.1 cm in greatest dimension and grossly approaching the margins. The remaining tissue is yellow to white fibroadipose tissue with fibrous tissue occupying approximately 10 percent of the cut surface. The specimen is submitted entirely in cassettes A1-A6 following decalcification. . The specimen was removed on 02/13/2022 with no time provided. Cold ischemic time cannot be calculated. Total fixation time is approximately 36 hours. ([id number]) /[facility] 02/14/2022 1813 Local . 01 Pathologist provided ICD-10: N63.20 . 01 CPT . 971826 Specimen Comment: A courtesy copy of this report has been sent to [phone] Performed at: 01 [facility] [address] [place] [address] [address] [facility], [place], [place] [id number] MD Wicho Lopez MD Phone: [phone]
[2022-02-13] MEDS: LACTATED RINGERS 1,000 ML 84 ML IV (08:18)
[2022-02-13 08:36] LABS: COVID19 -Nasal RAPID Negative (Negative)
[2022-02-13] MEDS: ACETAMINOPHEN 325 MG TABLET 650 MG PO (09:00)
[2022-02-13] MEDS: ALBUTEROL 2.5 MG/3 ML NEB (ADULT) INH (09:01)
--- NOTE | 2022-02-13 09:28 | PM.HP.1 ---
History of Present Illness History of Present Illness Date Patient Seen: 02/13/22 Time Patient Seen: 09:28 Chief complaint: L Breast Lumpectomy Narrative: Alma is here for her wide local excision of left breast calcification. See office note from December for details. Patient History Medical History (Updated 02/02/22 @ 12:34 by Julieta Stephens RN) Acquired hypothyroidism (12/17/12) Acute exacerbation of chronic obstructive pulmonary disease (COPD) Anesthesia complication Anxiety Asthma Breast cancer COPD (chronic obstructive pulmonary disease) Current every day smoker Cyst of breast, right, solitary Deep vein thrombosis (DVT) of upper extremity (05/05/14) Depression (05/05/14) DVT (deep venous thrombosis) (~2011) Generalized anxiety disorder GERD (gastroesophageal reflux disease) H/O malignant neoplasm of breast Hirsutism Hypertension Hypothyroidism Ingrown hair Insomnia Intramural leiomyoma of uterus Kidney stones Kidney stones, calcium oxalate Medical marijuana use 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) Posttraumatic stress disorder (06/30/14) Pyelonephritis Seasonal allergic rhinitis (10/29/14) Sleep apnea in adult (12/13/14) Steatosis of liver (03/07/15) Tobacco use disorder (08/29/16) Surgical History (Updated 02/02/22 @ 09:50 by Julieta Stephens RN) History of lumpectomy History of removal of Port-a-Cath (2013) History of third molar tooth extraction History of thyroidectomy (~2000) History of ureter stent History of urologic surgery (1991) Status post laparoscopic cholecystectomy Status post laparoscopic supracervical hysterectomy (~2012) Status post tonsillectomy and adenoidectomy (1970) Family & Social History Family History Father CAD (coronary artery disease) Diabetes mellitus Hypertension Mother Hypertension Family/Other Breast cancer Social History: household members spouse Tobacco & Substance use: Tobacco type cigarettes Smoking Status Current every day smoker Smoking packs per day 1 alcohol intake never alcohol intake frequency holiday/special occasion Substance Use Type marijuana Meds Home Medications and Allergies Home Medications Medication Instructions Recorded Confirmed Type doxepin 25 mg capsule 25 mg PO BEDTIME #90 caps 06/20/21 02/13/22 Rx metoprolol tartrate 50 mg tablet 50 mg PO BID #180 tabs 07/13/21 02/13/22 Rx amlodipine 10 mg tablet 10 mg PO DAILY 02/02/22 02/13/22 History clonazepam 1 mg tablet 1 mg PO TID 02/02/22 02/13/22 History melatonin 3 mg tablet 3 mg PO BEDTIME PRN Sleep 02/02/22 02/13/22 History venlafaxine 75 mg tablet 150 mg PO DAILY 02/02/22 02/13/22 History levothyroxine 88 mcg tablet 88 mcg DAILY 02/13/22 02/13/22 History Allergies Allergy/AdvReac Type Severity Reaction Status Date / Time prednisone AdvReac Severe Agitated Verified 02/13/22 09:06 zolpidem [From Ambien] AdvReac Unknown Insomnia Verified 02/13/22 08:25 Exam Vital Signs (past 8 hours): - 02/13/22 08:28 Temperature 98.2 F Pulse Rate 94 H Respiratory Rate 16 Blood Pressure 128/81 Pulse Oximetry 98 Oxygen Delivery Method Room Air Oxygen Delivery Method Room Air Narrative Exam Narrative: Three 4 cm linear left breast calcified mass just deep to the upper outer border of the left areola No left axillary lymphadenopathy no other breast lesions Objective Labs Labs: Laboratory Results - last 24 hr 02/13/22 08:15 SARS-CoV-2 (PCR) Negative Assessment & Plan Assessment and plan (1) Breast calcification, left: Status: Acute Plan Plan for excisional biopsy of left breast palpable lesion. We discussed possibility of needing to remove portion of the nipple-areolar complex if the lesion is closely invested with the dermis of nipple-areolar complex. She understands and wishes to proceed Time Spent With Patient Critical Care time: I spent a total of [] minutes of critical care time on this patient's care today; this time is exclusive of procedural time.
--- NOTE | 2022-02-13 10:21 | SUR.OPER ---
Supine on padded OR bed, head on pillow, arms secured on padded arm boards at <90 degrees abduction, legs uncrossed, safety belt at thigh, tape over blanket over lower legs. Position approved by anesthesia and surgeon
[2022-02-13] MEDS: LIDOCAINE 1% W/EPI 20 ML INJ (10:28)
--- NOTE | 2022-02-13 11:10 | PM.OP.1 ---
Operative Date/Time/Diagnoses Date of procedure: 02/13/22 Time of procedure: 11:10 Pre-op diagnosis: Left breast lump and calcifications Post-op diagnosis: same Procedure & Clinicians Procedure: Left lumpectomy Same procedure as scheduled: Yes Surgeon: Bennett Call Operative Notes Procedure in detail: The patient was given preoperative antibiotic. The patient was brought to the operating room, placed on the table in the supine position, general endotracheal anesthesia was induced. Arms were abducted on arm boards. The left breast was prepped and draped in the usual fashion. A time-out was performed. We made a 9 cm incision over the palpable mass in the left breast which was just along the superior lateral border of the areola. We were able to find a plane between the dermis of the areola and the mass. Mass appeared to be calcified and oblong. Of the deepest aspect some many clips were seen around the mass. The mass was excised completely and sent to pathology in formalin. We then irrigated the wound with sterile water and saline. Additional local was injected into the dermis and subcutaneous adipose tissue around the incision. A few bleeders were cauterized. We then closed the wound in layers using multiple interrupted 3-0 Vicryl dermal sutures followed by a running 4-0 Monocryl subcuticular closure. Steri-Strips were applied followed by dry gauze and a breast binder. Post-operative Condition: stable Disposition: PACU
[2022-02-13] MEDS: OXYCODONE IR 5 MG TABLET PO (11:57)
--- NOTE | 2022-02-13 12:04 | SUR.PHASEII ---
Pt medicated for 01/17 pain to L breast. d/c instructions discussed, pt voiced an understanding.
--- NOTE | 2022-02-13 12:42 | SUR.PHASEII ---
Pain down to 4/10, pt wanting to go home, left in stable condition.
== END 2022-02-13 12:42 | disposition home or self-care (01) ==
PROVIDERS: PCP Family Medicine; Referring Provider Surgery; Visit Provider Surgery
PROC: (CPT 19301; principal; 2022-02-13 09:45)
DX: N63.20 Unspecified lump in the left breast, unspecified quadrant (principal); J44.9 Chronic obstructive pulmonary disease, unspecified; Z99.81 Dependence on supplemental oxygen; F17.210 Nicotine dependence, cigarettes, uncomplicated; K21.9 Gastro-esophageal reflux disease without esophagitis; Z86.718 Personal history of other venous thrombosis and embolism; Z85.3 Personal history of malignant neoplasm of breast; I10 Essential (primary) hypertension; Z20.822 Contact with and (suspected) exposure to COVID-19
CPT/HCPCS: 19301; 87635; C9803; J1885; J2250; J2405; J2704; J3010; J7613

== ENCOUNTER 2022-03-13 07:54 | Emergency (ER) | payer OTHER, SELFPAY ==
[2021-04-20 17:59] VITALS: BMI 25.8
[2022-03-13] VITALS (7 sets, daily range): BP systolic 135–146; BP diastolic 70–80; PULSE 84–94; RESP 13–23; TEMP 36.7; O2SAT 93–100; BMI 28.8
--- NOTE | 2022-03-13 08:06 | ED.SOB ---
HPI - SOB/Dyspnea General Chief Complaint: Shortness of Breath/Dyspnea Stated Complaint: Possible lung infection- has COPD- ref by [facility] Time Seen by Provider: 03/13/22 07:59 History of Present Illness HPI Narrative: 56F smoker with history of breast cancer, prior DVT and anxiety disorder presents at the request of her primary care provider for evaluation of increasing shortness of breath, wheezing and cough for the past few days. She is had minimal runny nose and sneeze but cough that is increasingly productive in the absence of fever or shaking chills. She is not dizzy nor weak or lightheaded. She denies any chest pain, recent travel but has had prior clots and history of breast cancer. She is not anticoagulated Related Data Home Medications Medication Instructions Recorded Confirmed amlodipine 10 mg tablet 10 mg PO DAILY 02/02/22 02/28/22 clonazepam 1 mg tablet 1 mg PO TID 02/02/22 02/28/22 melatonin 3 mg tablet 3 mg PO BEDTIME PRN Sleep 02/02/22 02/28/22 venlafaxine 75 mg tablet 150 mg PO DAILY 02/02/22 02/28/22 levothyroxine 88 mcg tablet 88 mcg DAILY 02/13/22 02/28/22 Previous Rx's Medication Instructions Recorded doxepin 25 mg capsule 25 mg PO BEDTIME #90 caps 06/20/21 metoprolol tartrate 50 mg tablet 50 mg PO BID #180 tabs 07/13/21 hydrocodone 5 mg-acetaminophen 325 1 tab PO Q8H PRN pain #10 tabs 02/13/22 mg tablet doxycycline hyclate 100 mg tablet 100 mg PO BID #20 tabs 03/13/22 montelukast 10 mg tablet 10 mg PO DAILY #30 tabs 03/13/22 Allergies Allergy/AdvReac Type Severity Reaction Status Date / Time prednisone AdvReac Severe Agitated Verified 03/13/22 08:22 zolpidem [From Ambien] AdvReac Unknown Insomnia Verified 03/13/22 08:22 Review of Systems Review of Systems Narrative: GENERAL: Denies chills, fatigue, malaise, fever, sweats. HEENT: Denies sinus pain, ear pain, sore throat, difficulty swallowing, dizziness. RESPIRATORY: See HPI CARDIOVASCULAR: See HPI GASTROINTESTINAL: Denies nausea, vomiting, abdominal pain, diarrhea, constipation, melena. : Denies dysuria, frequency, incontinence, hematuria, urinary retention. MUSCULOSKELETAL: denies weakness, joint pain, or bony pain SKIN: Denies rash, skin lesions, or other NEUROLOGIC: Denies weakness, headache, numbness, change in speech, confusion, seizures, incoordination. PSYCHIATRIC: No concerning psychosocial issues. 12 point review of systems is negative except for those stated above Patient History Medical History Acquired hypothyroidism (12/17/12) Acute exacerbation of chronic obstructive pulmonary disease (COPD) Anesthesia complication Anxiety Asthma Breast cancer COPD (chronic obstructive pulmonary disease) Current every day smoker Cyst of breast, right, solitary Deep vein thrombosis (DVT) of upper extremity (05/05/14) Depression (05/05/14) DVT (deep venous thrombosis) (~2011) Generalized anxiety disorder GERD (gastroesophageal reflux disease) H/O malignant neoplasm of breast Hirsutism Hypertension Hypothyroidism Ingrown hair Insomnia Intramural leiomyoma of uterus Kidney stones Kidney stones, calcium oxalate Medical marijuana use 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) Posttraumatic stress disorder (06/30/14) Pyelonephritis Seasonal allergic rhinitis (10/29/14) Sleep apnea in adult (12/13/14) Steatosis of liver (03/07/15) Tobacco use disorder (08/29/16) Surgical History History of lumpectomy History of removal of Port-a-Cath (2013) History of third molar tooth extraction History of thyroidectomy (~2000) History of ureter stent History of urologic surgery (1991) Status post laparoscopic cholecystectomy Status post laparoscopic supracervical hysterectomy (~2012) Status post tonsillectomy and adenoidectomy (1970) Family History Father CAD (coronary artery disease) Diabetes mellitus Hypertension Mother Hypertension Family/Other Breast cancer Social History household members: spouse Smoking Status: Current every day smoker quit status: has quit before alcohol intake: never Smoking Status: Current every day smoker tobacco type: cigarettes alcohol intake frequency: holidays/special occasions only Substance Use Type: marijuana Exam Narrative Exam Narrative: GENERAL: [56] year old patient appears stated age. Well-developed patient, in mild distress. Anxious, increased work of breathing. HEAD: Atraumatic. Normocephalic. EYES: Pupils equal round and reactive. Extraocular motions intact. No scleral icterus. No injection or drainage. ENT: Nose without bleeding, purulent drainage. Throat without erythema, tonsillar hypertrophy or exudate. Airway patent. NECK: Trachea midline. Non tender CARDIOVASCULAR: Tachycardic but regular rhythm without murmurs, gallops, or rubs. RESPIRATORY: Increased work of breathing, tight with wheezes in all lung guajardo GASTROINTESTINAL: Abdomen soft, non-tender, nondistended. EXTREMITIES: No edema or joint tenderness. BACK: Nontender without deformity or crepitance. No flank tenderness. NEURO: AOx3. SKIN: No rash or erythema of visible areas Initial Vital Signs Initial Vital Signs: Vital Signs Temperature 98.1 F 03/13/22 08:05 Course Orders Ordered: ED Orders 03/13/22 08:05 COVID19 -Nasal RAPID/Pre-Proc Stat Complete Blood Count AUTO DIFF Stat Comprehensive Metabolic Panel Stat D Dimer Stat Lactate (Lactic Acid) Stat Magnesium Stat NT-proBNP (BNP-Adult 18+) Stat Procalcitonin Stat Prothrombin Time INR Stat Troponin & CK Cardiac Panel Stat 03/13/22 08:07 Blood Culture Stat 03/13/22 08:08 XR chest 2V Stat EKG-12 Lead Stat 03/13/22 10:34 Respiratory Panel (Film Array) Stat Discontinued Medications Albuterol/Ipratropium (Albuterol/Ipratropium 3 Ml Ampul) 3 ml INH NOW ONE Stop: 03/13/22 08:14 Last Admin: 03/13/22 08:25 Dose: 3 ml Documented By: DEMAR Albuterol/Ipratropium (Albuterol/Ipratropium 3 Ml Ampul) 3 ml INH Q20M MELI Stop: 03/13/22 10:41 Last Admin: 03/13/22 10:30 Dose: 3 ml Documented By: Admin: 03/13/22 10:00 Dose: 3 ml Documented By: MITESH Methylprednisolone (Methylprednisolone 125 Mg/2 Ml Vial) 125 mg IV NOW ONE Stop: 03/13/22 08:08 Last Admin: 03/13/22 09:55 Dose: Not Given Documented By: KHALIDA Vital Signs Vital signs: Vital Signs - 8 hr 03/13/22 08:05 03/13/22 09:07 03/13/22 09:07 Temperature 98.1 F Pulse Rate 90 Respiratory Rate 23 Blood Pressure 137/70 Pulse Oximetry 94 Oxygen Delivery Method Room Air 03/13/22 10:06 03/13/22 10:00 Temperature Pulse Rate Respiratory Rate Blood Pressure Pulse Oximetry Oxygen Delivery Method Room Air Room Air MDM - SOB/Dyspnea Lab Data Result diagrams: 03/13/22 08:05 03/13/22 08:05 Labs: Lab Results 03/13/22 03/13/22 03/13/22 Range/Units 08:05 08:05 08:05 WBC 6.9 (4.5-11.0) X10^3/uL RBC 5.90 H (4.0-5.2) X10^6/uL Hgb 17.0 H (12.0-16.0) g/dL Hct 51.6 H (36-46) % MCV 87.5 (80-100) fL MCH 28.8 (26-34) PG MCHC 33.0 (30-36) % RDW 14.2 (11.6-14.8) % Plt Count 297 (150-400) X10^3/uL Neut % (Auto) 61.0 (50-75) % Lymph % (Auto) 27.1 (25-40) % [place] % (Auto) 7.5 (3-14) % Eos % (Auto) 3.3 (2-4) % Baso % (Auto) 1.1 (0-2) % Neut # (Auto) 4200 (7385-9626) /uL Lymph # (Auto) 1900 (5465-3885) /uL [place] # (Auto) 500 (0-900) /uL Eos # (Auto) 200 (0-450) /uL Baso # (Auto) 100 (0-100) /uL PT 12.1 (10.1-12.7) SECONDS INR 1.1 (0.9-1.3) D-Dimer 375 (<500) ng/ml Sodium 141 (137-145) mmol/L Potassium 3.6 (3.4-5.1) mmol/L Chloride 101 (98-107) mmol/L Carbon Dioxide 28 (22-32) mmol/L BUN 19 H (7-17) mg/dL Creatinine 0.94 (0.52-1.04) mg/dL Estimated GFR > 60 (>60) mL/min BUN/Creatinine Ratio 20.2 (6-22) Glucose 163 H (70-100) mg/dL Lactate (0.7-2.1) mmol/L Calcium 9.0 (8.4-10.2) mg/dL Magnesium 2.0 (1.6-2.3) mg/dL Total Bilirubin 0.7 (0.2-1.3) mg/dL AST 25 (14-36) IU/L ALT 13 (<35) IU/L Alkaline Phosphatase 75 (38-126) U/L Total Creatine Kinase (30-135) U/L CK-MB (CK-2) CK-MB (CK-2) Rel Index Troponin I (0.01-0.034) ng/mL NT-Pro-B Natriuret Pep 85 (<125) pg/mL Total Protein 8.8 H (6.3-8.2) g/dL Albumin 4.5 (3.5-5.0) g/dL Globulin 4.3 H (1.7-4.1) g/dL Albumin/Globulin Ratio 1.0 (1.0-2.8) Procalcitonin 0.09 (<0.5) ng/mL SARS-CoV-2 (PCR) (Negative) 03/13/22 03/13/22 03/13/22 Range/Units 08:05 08:05 08:05 WBC (4.5-11.0) X10^3/uL RBC (4.0-5.2) X10^6/uL Hgb (12.0-16.0) g/dL Hct (36-46) % MCV (80-100) fL MCH (26-34) PG MCHC (30-36) % RDW (11.6-14.8) % Plt Count (150-400) X10^3/uL Neut % (Auto) (50-75) % Lymph % (Auto) (25-40) % [place] % (Auto) (3-14) % Eos % (Auto) (2-4) % Baso % (Auto) (0-2) % Neut # (Auto) (1542-4677) /uL Lymph # (Auto) (5989-7576) /uL [place] # (Auto) (0-900) /uL Eos # (Auto) (0-450) /uL Baso # (Auto) (0-100) /uL PT (10.1-12.7) SECONDS INR (0.9-1.3) D-Dimer (<500) ng/ml Sodium (137-145) mmol/L Potassium (3.4-5.1) mmol/L Chloride (98-107) mmol/L Carbon Dioxide (22-32) mmol/L BUN (7-17) mg/dL Creatinine (0.52-1.04) mg/dL Estimated GFR (>60) mL/min BUN/Creatinine Ratio (6-22) Glucose (70-100) mg/dL Lactate 1.4 (0.7-2.1) mmol/L Calcium (8.4-10.2) mg/dL Magnesium (1.6-2.3) mg/dL Total Bilirubin (0.2-1.3) mg/dL AST (14-36) IU/L ALT (<35) IU/L Alkaline Phosphatase (38-126) U/L Total Creatine Kinase 68 (30-135) U/L CK-MB (CK-2) TNP CK-MB (CK-2) Rel Index TNP Troponin I < 0.012 (0.01-0.034) ng/mL NT-Pro-B Natriuret Pep (<125) pg/mL Total Protein (6.3-8.2) g/dL Albumin (3.5-5.0) g/dL Globulin (1.7-4.1) g/dL Albumin/Globulin Ratio (1.0-2.8) Procalcitonin (<0.5) ng/mL SARS-CoV-2 (PCR) Negative (Negative) Imaging Data Chest x-ray: Radiologist's Impression: [address] [address] XRay Report Signed Patient: Shyla Dumas MR#: [id number] : 1965 Acct:[id number] Age/Sex: 56 / F Date of Service: 03/13/22 Loc: ED Accession Number: [id number] ?? Procedure: XR chest 2V Ordering Provider: Igor Cuevas D.O. PROCEDURE:? XR CHEST 2V ? INDICATIONS:? shortness of breath ? TECHNIQUE:? 2 views of the chest were acquired.? ? COMPARISON:? [facility], CR, XR CHEST 1V, 04/20/2021, 9:28. ? FINDINGS:? ? Surgical changes and devices:? None.? ? Lungs and pleura:? Lungs are clear.? No pleural effusions or pneumothorax.? ? Mediastinum:? Mediastinal contours are normal.? Heart size is normal.? ? Bones and chest wall:? No suspicious bony abnormalities.? Soft tissues appear unremarkable.? ? IMPRESSION:? No acute pulmonary process. ? ? Dictated by: Lorraine Mcfarlane M.D. on 03/13/2022 at 8:57 ? ? Approved by: Lorraine Mcfarlane M.D. on 03/13/2022 at 8:58? MDM Narrative Medical decision making narrative: Patient with significant improvement in symptoms after above-stated therapies. Heart rate down to the 70s and 80s, wheeze has improved, chest x-ray shows no significant findings. Pulmonary embolism considered but thought unlikely given negative D-dimer. I have called her PCP (Dr. Ribeiro) who requests I initiate montelukast and have her see him in the office. Patient given bedside teaching regarding spacer for her albuterol. Given patient's persistent symptoms and history of smoking she is treated for atypical pneumonia. Return precautions discussed and questions answered to her apparent satisfaction Discharge Plan Departure Patient Disposition: Home Clinical Impression: Acute exacerbation of chronic obstructive pulmonary disease, Atypical pneumonia Instructions: Chronic Obstructive Pulmonary Disease, DI for Atypical Pneumonia Activity Restrictions/Additional Instructions: *You have been diagnosed with [COPD exacerbation and atypical pneumonia] *What to do: *Please continue to take your regular medications as directed. [ x] New medication prescriptions sent to your pharmacy: [ [facility]] [ ] New medication written as a paper prescription [ ] No new medications given *Please follow up with your primary care provider in 2-3 days, call for an appointment. Let them know you were seen in the Emergency Department and that we ask that you be seen in follow up. We will electronically transmit a record of today's note if your PCP is in our system *Return to Emergency Department if you should have any new, worsening or concerning symptoms, such as [fever greater than 101 F, shaking chills, worsening pain, persistent vomiting or other bothersome symptoms] Prescriptions: New montelukast 10 mg tablet 10 mg PO DAILY Qty: 30 0RF doxycycline hyclate 100 mg tablet 100 mg PO BID Qty: 20 0RF No Action doxepin 25 mg capsule 25 mg PO BEDTIME Qty: 90 3RF metoprolol tartrate 50 mg tablet 50 mg PO BID Qty: 180 3RF venlafaxine 75 mg Tablet 150 mg PO DAILY clonazepam 1 mg Tablet 1 mg PO TID melatonin 3 mg Tablet 3 mg PO BEDTIME PRN (Reason: Sleep) amlodipine 10 mg Tablet 10 mg PO DAILY levothyroxine 88 mcg tablet 88 mcg DAILY Label Comments: TAKE 1 TABLET BY MOUTH DAILY hydrocodone-acetaminophen 5-325 mg tablet 1 tab PO Q8H PRN (Reason: pain) Qty: 10 0RF Referrals: Emmanuel Ribeiro MD [Primary Care Provider] -
--- NOTE | 2022-03-13 08:08 | DI.RAD.S_ITS ---
PROCEDURE: XR CHEST 2V INDICATIONS: shortness of breath TECHNIQUE: 2 views of the chest were acquired. COMPARISON: [facility], , XR CHEST 1V, 04/20/2021, 9:28. FINDINGS: Surgical changes and devices: None. Lungs and pleura: Lungs are clear. No pleural effusions or pneumothorax. Mediastinum: Mediastinal contours are normal. Heart size is normal. Bones and chest wall: No suspicious bony abnormalities. Soft tissues appear unremarkable. IMPRESSION: No acute pulmonary process. Dictated by: Lorraine Mcfarlane M.D. on 03/13/2022 at 8:57 Approved by: Lorraine Mcfarlane M.D. on 03/13/2022 at 8:58
[2022-03-13] MEDS: ALBUTEROL/IPRATROPIUM 3 ML AMPUL INH ×4 (08:25→10:57)
[2022-03-13 08:38] LABS: Add Manual Diff / Slide Review NO; Basophils Absolute Auto 100 /uL (0-100); Basophils Percent Auto 1.1 % (0-2); Eosinophils Absolute Auto 200 /uL (0-450); Eosinophils Percent Auto 3.3 % (2-4); Hematocrit 51.6 % (36-46); Lymphocytes Absolute Auto 1900 /uL (1100-4500); Lymphocytes Percent Auto 27.1 % (25-40); Mean Corpuscular Hemoglobin 28.8 PG (26-34); Mean Corpuscular Volume 87.5 fL (80-100); Monocytes Absolute Auto 500 /uL (0-900); Monocytes Percent Auto 7.5 % (3-14); Neutrophils Absolute Auto 4200 /uL (1500-7000); Platelet Count 297 X10^3/uL (150-400); Red Cell Distribution Width 14.2 % (11.6-14.8); White Blood Cell Count 6.9 X10^3/uL (4.5-11.0)
[2022-03-13 08:52] LABS: Lactate (Lactic Acid) 1.4 mmol/L (0.7-2.1)
[2022-03-13 08:53] LABS: INR 1.1 (0.9-1.3); Prothrombin Time 12.1 SECONDS (10.1-12.7)
[2022-03-13 08:54] LABS: Alanine Aminotransferase 13 IU/L (<35); Albumin 4.5 g/dL (3.5-5.0); Alkaline Phosphatase 75 U/L (38-126); Aspartate Aminotransferase 25 IU/L (14-36); BUN Creatinine Ratio 20.2 (6-22); Bilirubin Total 0.7 mg/dL (0.2-1.3); Blood Urea Nitrogen 19 mg/dL (7-17); Carbon Dioxide 28 mmol/L (22-32); Chloride 101 mmol/L (98-107); Creatine Kinase 68 U/L (30-135); D Dimer 375 ng/ml (<500); Estimated Glomerular Filt Rate > 60 mL/min (>60); Globulin 4.3 g/dL (1.7-4.1); Glucose 163 mg/dL (70-100); HEMOLYSIS 31 (0-50); Potassium 3.6 mmol/L (3.4-5.1); Sodium 141 mmol/L (137-145); Total Protein 8.8 g/dL (6.3-8.2)
[2022-03-13 08:57] LABS: COVID19 -Nasal RAPID Negative (Negative)
[2022-03-13 09:02] LABS: NT-proBNP (BNP-Adult 18+) 85 pg/mL (<125)
[2022-03-13 09:05] LABS: Troponin I < 0.012 ng/mL (0.01-0.034)
[2022-03-13 09:09] LABS: Procalcitonin 0.09 ng/mL (<0.5)
[2022-03-13 12:28] LABS: Adenovirus Not Detected (Not Detect); B. parapertussis Not Detected (Not Detecte); Bordetella pertussis Not Detected (Not Detecte); Chlamydophila pneumoniae Not Detected (Not Detect); Coronavirus 229E Not Detected (Not Detect); Coronavirus HKU1 Not Detected (Not Detect); Coronavirus NL 63 Not Detected (Not Detect); Coronavirus OC43 Not Detected (Not Detect); Human Metapneumovirus Not Detected (Not Detect); Human Rhinovirus/Enterovirus Detected (Not Detect); Influenza A Not Detected (Not Detect); Influenza B Not Detected (Not Detect); Mycoplasma pneumoniae Not Detected (Not Detect); Parainfluenza Virus 1 Not Detected (Not Detect); Parainfluenza Virus 2 Not Detected (Not Detect); Parainfluenza Virus 3 Not Detected (Not Detect); Parainfluenza Virus 4 Not Detected (Not Detect); Respiratory Syncytial Virus Not Detected (Not Detect); SARS- CoV-2 Not Detected (Not Detecte)
== END 2022-03-13 11:19 | disposition home or self-care (01) ==
PROVIDERS: Emergency Provider Emergency Medicine; PCP Family Medicine; Referring Provider Family Medicine
DX: J44.1 Chronic obstructive pulmonary disease with (acute) exacerbation (principal); J18.9 Pneumonia, unspecified organism; Z20.822 Contact with and (suspected) exposure to COVID-19; N20.0 Calculus of kidney; N39.0 Urinary tract infection, site not specified; Z87.442 Personal history of urinary calculi
CPT/HCPCS: 36415; 71046; 74176; 80053; 81001; 82550; 83605; 83735; 83880; 84145; 84484; 85025; 85379; 85610; 87040; 87086; 87633; 87635; 93005; 94640; 96374; 96375; 99284; C9803; J1885; J2270; J2405

== ENCOUNTER 2022-03-13 17:22 | Emergency (ER) | payer OTHER, SELFPAY ==
[2021-04-20 17:59] VITALS: BMI 25.8
[2022-03-13 18:16] VITALS: BP 146/96; PULSE 116; RESP 22; TEMP 36.7; O2SAT 94
[2022-03-13 19:16] LABS: Appearance Urine UA CLOUDY; Bilirubin Urine UA NEGATIVE (NEGATIVE); Color Urine UA YELLOW; Glucose Urine UA NEGATIVE (Negative); Ketones Urine UA NEGATIVE (NEGATIVE); Leukocyte Esterase Urine UA TRACE (NEGATIVE); Nitrite Urine UA NEGATIVE (Negative); Occult Blood Urine UA 1+ (Negative); Protein Urine UA 1+ (Negative); Specific Gravity Urine UA 1.025 (1.000-1.035); Urobilinogen Urine UA 0.2 E.U./dL (0.2)
--- NOTE | 2022-03-13 19:21 | DI.CT.S_ITS ---
PROCEDURE: CT KIDNEY URETER BLADDER (KUB) INDICATIONS: urinating blood, flank pain TECHNIQUE: Axial sections were acquired from the lung bases to the pubic symphysis. Coronal and sagittal reformats were performed. For radiation dose reduction, the following was used: automated exposure control, adjustment of mA and/or kV according to patient size. COMPARISON: [facility], CT, CT KUB, 08/11/2017, 8:48. [facility], CT, KIDNEY/ URETER/BLADDER, 06/01/2017, 13:24. FINDINGS: Image quality: Excellent. Lung bases: No pleural effusion. URINARY: Right Kidney: No stones or hydronephrosis. Right Ureter: No hydroureter. Left Kidney: No stones or hydronephrosis. Left Ureter: No hydroureter. Bladder: Normal wall thickness. No stones. ABDOMEN: Liver: Unremarkable. Gallbladder: Surgically absent. Biliary ducts: Unremarkable. Pancreas: Unremarkable. Spleen: Unremarkable. Adrenal Glands: Unremarkable. Stomach and Bowel: No bowel obstruction. Normal appendix. Peritoneum: No abnormal intraperitoneal fluid. No free air. Ventral Wall: No hernia. Abdominal Nodes: No enlarged retroperitoneal or mesenteric lymph nodes. Vessels: Aorta and inferior vena cava are normal in size. PELVIS: Pelvic Organs: Unremarkable CT appearance. Pelvic Nodes: Unremarkable. Miscellaneous: No inguinal hernias are seen. Bones: Multilevel degenerative change of the visualized spine. IMPRESSION: No urinary stone or hydroureteronephrosis. Dictated by: Zander Singh M.D. on 03/13/2022 at 20:10 Approved by: Zander Singh M.D. on 03/13/2022 at 20:21
[2022-03-13 19:26] LABS: Calcium Oxalate Crystals Urine Many; RBC Urine 1-5/HPF (0-5/HPF); Squamous Epithelial Cell Urine 5-10 /HPF (0-5/HPF); WBC Urine 5-10/HPF (0-5/HPF)
[2022-03-13 19:27] LABS: Amorphous Sediment Urine 1+; Bacteria Urine Moderate (10-30); Culture Indicated Urine Specimen Cultured; Mucus Urine 2+ (Negative)
[2022-03-13] MEDS: KETOROLAC 30 MG/ML VIAL 15 MG IV (19:50)
[2022-03-13] MEDS: ONDANSETRON 4 MG/2 ML INJ IV (19:50)
[2022-03-13 19:59] VITALS: BP 171/83; PULSE 92; RESP 18; O2SAT 94
--- NOTE | 2022-03-13 21:29 | ED.FEMALEGU ---
HPI - Female Genitourinary General Chief complaint: Urogenital-Female Stated complaint: peeing blood Time Seen by Provider: 03/13/22 17:42 Source: patient Mode of arrival: Ambulatory History of Present Illness HPI Narrative: Patient is a 56-year-old female history of 11 kidney stones all requiring lithotripsy, COPD was already seen evaluated in the emergency department today day had blood work and evaluation earlier. It was noted that she had hematuria at that time however bigger concern with her respiratory status so unfortunately a urinalysis was never done. She came back to she urinated gross blood and is having left-sided flank pain. She says this does not feel like kidney stone. But she is quite uncomfortable. She is mildly nauseous it hurts to touch hurts to move. She does not remember any injury. If worried that she might have a kidney infection. He has not had fever or chills. Blood work from earlier today did not show any leukocytosis. Related Data Home Medications Medication Instructions Recorded Confirmed amlodipine 10 mg tablet 10 mg PO DAILY 02/02/22 02/28/22 clonazepam 1 mg tablet 1 mg PO TID 02/02/22 02/28/22 melatonin 3 mg tablet 3 mg PO BEDTIME PRN Sleep 02/02/22 02/28/22 venlafaxine 75 mg tablet 150 mg PO DAILY 02/02/22 02/28/22 levothyroxine 88 mcg tablet 88 mcg DAILY 02/13/22 02/28/22 Previous Rx's Medication Instructions Recorded doxepin 25 mg capsule 25 mg PO BEDTIME #90 caps 06/20/21 metoprolol tartrate 50 mg tablet 50 mg PO BID #180 tabs 07/13/21 hydrocodone 5 mg-acetaminophen 325 1 tab PO Q8H PRN pain #10 tabs 02/13/22 mg tablet doxycycline hyclate 100 mg tablet 100 mg PO BID #20 tabs 03/13/22 levofloxacin 750 mg tablet 750 mg PO DAILY 5 days #5 tabs 03/13/22 montelukast 10 mg tablet 10 mg PO DAILY #30 tabs 03/13/22 Allergies Allergy/AdvReac Type Severity Reaction Status Date / Time prednisone AdvReac Severe Agitated Verified 03/13/22 18:19 zolpidem [From Ambien] AdvReac Unknown Insomnia Verified 10/04/22 18:19 Review of Systems Review of Systems Narrative: GENERAL: Denies chills, fatigue, malaise, fever, sweats, travel HEENT: Denies sinus pain, ear pain, sore throat, difficulty swallowing, neck pain RESPIRATORY: Denies dyspnea, cough, wheezing, hemoptysis, sputum. CARDIOVASCULAR: Denies chest pain, palpitations, orthopnea, edema GASTROINTESTINAL: Denies nausea, vomiting, abdominal pain, diarrhea, constipation, melena. : See HPI MUSCULOSKELETAL: Denies weakness, joint pain, or bony pain SKIN: No rash, no erythema, no pruritus NEUROLOGIC: Denies weakness, dizziness, headache, numbness, change in speech, confusion PSYCHIATRIC: No concerning psychosocial issues. 12 point review of systems is negative except for those stated above and HPI Patient History Medical History Acquired hypothyroidism (12/17/12) Acute exacerbation of chronic obstructive pulmonary disease (COPD) Anesthesia complication Anxiety Asthma Breast cancer COPD (chronic obstructive pulmonary disease) Current every day smoker Cyst of breast, right, solitary Deep vein thrombosis (DVT) of upper extremity (05/05/14) Depression (05/05/14) DVT (deep venous thrombosis) (~2011) Generalized anxiety disorder GERD (gastroesophageal reflux disease) H/O malignant neoplasm of breast Hirsutism Hypertension Hypothyroidism Ingrown hair Insomnia Intramural leiomyoma of uterus Kidney stones Kidney stones, calcium oxalate Medical marijuana use 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) Posttraumatic stress disorder (06/30/14) Pyelonephritis Seasonal allergic rhinitis (10/29/14) Sleep apnea in adult (12/13/14) Steatosis of liver (03/07/15) Tobacco use disorder (08/29/16) Surgical History History of lumpectomy History of removal of Port-a-Cath (2013) History of third molar tooth extraction History of thyroidectomy (~2000) History of ureter stent History of urologic surgery (1991) Status post laparoscopic cholecystectomy Status post laparoscopic supracervical hysterectomy (~2012) Status post tonsillectomy and adenoidectomy (1970) Family History Father CAD (coronary artery disease) Diabetes mellitus Hypertension Mother Hypertension Family/Other Breast cancer tobacco type: cigarettes alcohol intake frequency: holidays/special occasions only Substance Use Type: marijuana Exam Initial Vital Signs Initial Vital Signs: Vital Signs Temperature 98.1 F 03/13/22 18:16 Pulse Rate 116 H 03/13/22 18:16 Respiratory Rate 22 03/13/22 18:16 Blood Pressure 146/96 H 03/13/22 18:16 Pulse Oximetry 94 03/13/22 18:16 Oxygen Delivery Method 03/13/22 18:16 GENERAL: Patient appears uncomfortable HEENT: Head atraumatic,EOMI, pupils reactive, face symmetric, moist mucous membranes CARDIOVASCULAR: Regular rate and rhythm without murmurs, rubs or gallops. RESPIRATORY: Breath sounds equal bilaterally, no wheezes rales or rhonchi. ABDOMEN: Soft, nontender. Normoactive bowel sounds all 4 quadrants. No guarding or rebound. : Mild left CVA tenderness EXTREMITIES: Normal range of motion, no clubbing or edema. Neurovascularly intact NEUROLOGICAL: Alert and oriented x4. SKIN: Warm, dry, no laceration, no petechiae, no rashes or lesions. Course Orders Ordered: ED Orders 03/13/22 19:21 CT kidney ureter bladder (KUB) Stat Discontinued Medications Hydrocodone Bitart/Acetaminophen (Hydrocodone/Acet 5/325 Prepack) 1 bottle MISC SEEINSTR ONE Stop: 03/13/22 22:17 Last Admin: 03/13/22 22:21 Dose: 1 bottle Documented By: ALEKSANDER Ketorolac Tromethamine (Ketorolac 30 Mg/Ml Vial) 15 mg IV NOW ONE Stop: 03/13/22 19:23 Last Admin: 03/13/22 19:50 Dose: 15 mg Documented By: DENNIS Levofloxacin (Levofloxacin 250 Mg Tablet) 750 mg PO NOW ONE Stop: 03/13/22 22:17 Last Admin: 03/13/22 22:22 Dose: 750 mg Documented By: ALEKSANDER Morphine Sulfate (Morphine 2 Mg/Ml Inj) 2 mg IV NOW ONE Stop: 03/13/22 21:31 Last Admin: 03/13/22 21:36 Dose: 2 mg Documented By: ALEKSANDER Ondansetron HCl (Ondansetron 4 Mg/2 Ml Inj) 4 mg IV NOW ONE Stop: 03/13/22 19:23 Last Admin: 03/13/22 19:50 Dose: 4 mg Documented By: DENNIS Vital Signs Vital signs: Vital Signs - 8 hr 03/13/22 19:59 03/13/22 22:30 03/13/22 22:16 Pulse Rate 92 H 79 88 Respiratory Rate 18 16 14 Blood Pressure 171/83 H 155/75 H 165/72 H Pulse Oximetry 94 98 97 Oxygen Delivery Method Room Air Room Air Room Air MDM - Female Genitourinary Lab Data Labs: Lab Results 03/13/22 Range/Units 18:20 Urine Color Yellow Urine Appearance Cloudy Urine pH 5.0 (4.5-8.0) Ur Specific [place] 1.025 (1.000-1.035) Urine Protein 1+ H (Negative) Urine Glucose (UA) Negative (Negative) g/dL Urine Ketones Negative (NEGATIVE) Urine Occult Blood 1+ H (Negative) Urine Nitrate Negative (Negative) Urine Bilirubin Negative (NEGATIVE) Urine Urobilinogen 0.2 (0.2) E.U./dL Ur Leukocyte Esterase Trace H (NEGATIVE) Urine RBC 1-5/hpf (0-5/HPF) Urine WBC 5-10/hpf H (0-5/HPF) Ur Squamous Epith Cells 5-10 /hpf H (0-5/HPF) Calcium Oxalate Crystal Many H Amorphous Sediment 1+ Urine Bacteria Moderate (10-30) H (None) Urine Mucus 2+ H (Negative) Ur Culture Indicated? Specimen cultured MDM Narrative Medical decision making narrative: Urinalysis does show blood with crystals and bacteria. Possible pyelonephritis CT does not show any sign of kidney stone. No need to repeat blood work this visit. She was previously sent home with doxycycline for COPD exacerbation. However this will not cover UTI symptoms. Will change her over to Levaquin. The patient states that when she got home pain was extremely intense the definitely has subsided however she still uncomfortable. She has got calcium oxalate crystals in her urine I suspect she may have passed a stone. She also agrees with this. She overall is feeling better with pain medication. She is aware that she has to stop her doxycycline. Discharge Plan Departure Patient Disposition: Home Clinical Impression: Kidney stones, UTI (urinary tract infection) Instructions: DI for Kidney Stones Activity Restrictions/Additional Instructions: *You have been diagnosed with kidney infection, possible recent kidney stone *What to do: Your urinalysis today does show that you do have some signs of bladder infection is. Will change her antibiotic so it cheeks both your respiratory and GI or UTI. Continue to stay hydrated. *Continue to take medications as directed Levaquin 750 mg once a day for 5 days [place] 1 tablet every 6 hours only if needed for severe pain *Follow up with your primary care provider in 2-3 days or call [phone] *Return to ER if you should have increasing shortness of breath, increasing abdominal pain flank pain worsening blood [or] any new, worsening or concerning symptoms CONTROLLED SUBSTANCE DISCHARGE (Narcotoic/benzodiazepine/Flexeril/Phenergan) 1. You have been prescribed narcotic medications, it does have acetaminophen/Tylenol/paracetamol in it, DO NOT TAKE MORE THAN 4,00mg in 24 hours of Tylenol. TRAMADOL DOES NOT CONTAIN TYLENOL 2. Please understand that we cannot provide further refills of narcotics, benzodiazepines or controlled substances through the ED and her pain management will need to be through your provider. 3. While on these medications you cannot drive or operate heavy machinery. 4. You cannot sign legal documents or perform any duties such as this. 5. As long as you're taking opiate pain medications he should also be taking a stool softener such as Colace, Dulcolax, MiraLAX or prune juice, to help avoid constipation. Prescriptions: New levofloxacin 750 mg tablet 750 mg PO DAILY 5 Days Qty: 5 0RF No Action doxepin 25 mg capsule 25 mg PO BEDTIME Qty: 90 3RF metoprolol tartrate 50 mg tablet 50 mg PO BID Qty: 180 3RF montelukast 10 mg tablet 10 mg PO DAILY Qty: 30 0RF doxycycline hyclate 100 mg tablet 100 mg PO BID Qty: 20 0RF venlafaxine 75 mg Tablet 150 mg PO DAILY clonazepam 1 mg Tablet 1 mg PO TID melatonin 3 mg Tablet 3 mg PO BEDTIME PRN (Reason: Sleep) amlodipine 10 mg Tablet 10 mg PO DAILY levothyroxine 88 mcg tablet 88 mcg DAILY Label Comments: TAKE 1 TABLET BY MOUTH DAILY hydrocodone-acetaminophen 5-325 mg tablet 1 tab PO Q8H PRN (Reason: pain) Qty: 10 0RF Referrals: Emmanuel Ribeiro MD [Primary Care Provider] - Visit Report Forms: Patient Portal/API
[2022-03-13] MEDS: MORPHINE 2 MG/ML INJ IV (21:36)
[2022-03-13 22:16] VITALS: BP 165/72; PULSE 88; RESP 14; O2SAT 97
[2022-03-13] MEDS: HYDROCODONE/ACET 5/325 PREPACK 1 BOTTLE MISC (22:21)
[2022-03-13] MEDS: levoFLOXacin 250 MG TABLET 750 MG PO (22:22)
[2022-03-13 22:30] VITALS: BP 155/75; PULSE 79; RESP 16; O2SAT 98
== END 2022-03-13 22:31 | disposition home or self-care (01) ==
PROVIDERS: Physician Assistant Medical; Emergency Provider Emergency Medicine; PCP Family Medicine
DX: N20.0 Calculus of kidney (principal); N39.0 Urinary tract infection, site not specified; Z87.442 Personal history of urinary calculi
CPT/HCPCS: 74176; 81001; 87086; J1885; J2270; J2405

== ENCOUNTER → 2022-12-20 12:58 | Outpatient (CLI) | payer OTHER, SELFPAY ==
[2022-03-14 13:20] VITALS: BMI 25.8
--- NOTE | 2022-12-20 | DI.RAD.S_ITS ---
PROCEDURE: XR KNEE RT 3V INDICATIONS: Chronic instability of knee, right knee TECHNIQUE: 3 views of the knee were acquired. COMPARISON: [facility], CR, XR KNEE RT 3V, 12/20/2020, 7:55. FINDINGS: Bones: No fractures or dislocations. No suspicious bony lesions. One. Mild patellofemoral spurring also present. Soft tissues: No joint effusion. No suspicious soft tissue calcifications. IMPRESSION: No acute osseous abnormality. Mild degenerative changes of the knee are present. If symptoms persist, follow-up radiographs and/or CT or MRI may be helpful for further evaluation. Dictated by: Zander Singh M.D. on 12/20/2022 at 16:46 Approved by: Zander Singh M.D. on 12/20/2022 at 16:47
== END ==
PROVIDERS: PCP Family Medicine; Referring Provider Family Medicine; Visit Provider Family Medicine
DX: M23.51 Chronic instability of knee, right knee (principal)
CPT/HCPCS: 73562

== ENCOUNTER 2023-06-29 11:08 | Observation (INO) | payer OTHER, SELFPAY ==
[2022-03-14 13:20] VITALS: BMI 25.8
[2023-06-29] VITALS (18 sets, daily range): BP systolic 128–166; BP diastolic 61–89; PULSE 97–111; RESP 13–24; TEMP 35.8–36.4; O2SAT 87–99; BMI 28.2
--- NOTE | 2023-06-29 11:33 | DI.RAD.S_ITS ---
PROCEDURE: XR CHEST 1V INDICATIONS: dyspnea/copd TECHNIQUE: One view of the chest was acquired. COMPARISON: [facility], CR, XR CHEST 2V, 03/13/2022, 8:30. [facility], CR, XR CHEST 1V, 04/20/2021, 9:28. [facility], CR, XR CHEST 1V, 03/03/2020, 10:49. FINDINGS: Surgical changes and devices: None. Lungs and pleura: Lungs are clear. No pleural effusions or pneumothorax. Mediastinum: Mediastinal contours appear normal. Heart size is normal. Bones and chest wall: No suspicious bony lesions. Overlying soft tissues appear unremarkable. IMPRESSION: No acute cardiopulmonary abnormality is seen. Approved by: Zander Serrato M.D. on 06/29/2023 at 12:33
--- NOTE | 2023-06-29 11:33 | DI.CT.S_ITS ---
PROCEDURE: CT ABDOMEN PELVIS W CON INDICATIONS: LLQ PAIN X 5 DAYS TECHNIQUE: After the administration of intravenous contrast, axial sections acquired from the lung bases to the pubic symphysis. Coronal and sagittal reformats were performed. For radiation dose reduction, the following was used: automated exposure control, adjustment of mA and/or kV according to patient size. COMPARISON: None. FINDINGS: Lower thorax: The lung bases are clear. Heart size normal. No hiatal hernia. Liver: The liver is diffusely decreased in attenuation without focal mass lesion.6 Biliary system: Cholecystectomy. No intra or extrahepatic bile duct dilation. Pancreas: Unremarkable without mass or inflammation evident. Spleen: Normal in size and density. Adrenals: Normal morphology and density. Reproductive system: Unremarkable as visualized. Urinary system: Normal renal size and attenuation. No renal calculi, hydronephrosis, or solid mass present. Urinary bladder unremarkable. Gastrointestinal system: The bowel is unremarkable without evidence of bowel obstruction or inflammation. The stomach appears unremarkable. Appendix: Normal appendix identified. No evidence of appendicitis. Peritoneal spaces: No mesenteric or retroperitoneal adenopathy. No free air. No free fluid. Vasculature: The IVC, aorta and iliac vasculature are unremarkable. Abdominal wall: Abdominal wall intact without evidence of ventral or inguinal hernias. Musculoskeletal: Normal bone mineralization. No acute fractures. Degenerative scoliosis IMPRESSION: 1. No acute CT findings in abdomen and pelvis. No evidence of diverticulitis. Approved by: Jung Robbins M.D. on 06/29/2023 at 11:56
--- NOTE | 2023-06-29 11:34 | ED_ITS ---
HPI - URI/Sore Throat General Chief Complaint: Upper Respiratory Symptoms Stated Complaint: low oxygen, flu symptoms n/v/d Time Seen by Provider: 06/29/23 11:28 Source: patient Mode of arrival: Ambulatory History of Present Illness HPI Narrative: 57-year-old female with history of COPD, ongoing tobacco use, remote history of breast cancer presents by private vehicle for cough, low oxygen readings at home, and diarrhea. Patient states she has been ill at home with a viral syndrome and she feels it is leading to dehydration. At home she noted her pulse ox was dipping as low as 84%. She has been using nebulizers at home without relief of her symptoms. She reports some left lower quadrant abdominal pain, which she believes is due to all of her diarrhea. Related Data Home Medications Medication Instructions Recorded Confirmed amlodipine 10 mg tablet 10 mg PO DAILY 02/02/22 03/19/22 clonazepam 1 mg tablet 1 mg PO TID 02/02/22 03/19/22 melatonin 3 mg tablet 3 mg PO BEDTIME PRN Sleep 02/02/22 03/19/22 venlafaxine 75 mg tablet 150 mg PO DAILY 02/02/22 03/19/22 levothyroxine 88 mcg tablet 88 mcg DAILY 02/13/22 03/19/22 Previous Rx's Medication Instructions Recorded hydrocodone 5 mg-acetaminophen 325 1 tab PO Q8H PRN pain #10 tabs 02/13/22 mg tablet doxycycline hyclate 100 mg tablet 100 mg PO BID #20 tabs 03/13/22 montelukast 10 mg tablet 10 mg PO DAILY #30 tabs 03/13/22 celecoxib 200 mg capsule (Celebrex) 200 mg PO BID #14 caps 03/23/22 doxepin 25 mg capsule 25 mg PO BEDTIME #30 caps 07/02/22 metoprolol tartrate 50 mg tablet 50 mg PO BID #180 tabs 07/11/22 Allergies Allergy/AdvReac Type Severity Reaction Status Date / Time prednisone AdvReac Severe Agitated Verified 03/19/22 15:09 zolpidem [From Ambien] AdvReac Unknown Insomnia Verified 03/19/22 15:09 Review of Systems Review of Systems Narrative: Negative except as marked Patient History Medical History (Updated 06/29/23 @ 13:35 by Jose R Ovalle MD) Breast calcification, left Moderate COPD (chronic obstructive pulmonary disease) Left retinal embolus Hyperlipidemia Prediabetes Osteoarthritis of spine with radiculopathy, cervical region (02/20/16) Arthropathy of cervical facet joint (02/20/16) Internal hemorrhoids (08/17/15) Kidney stone on left side Anesthesia complication COPD (chronic obstructive pulmonary disease) Medical marijuana use Current every day smoker Acute exacerbation of chronic obstructive pulmonary disease (COPD) Cyst of breast, right, solitary Intramural leiomyoma of uterus Insomnia H/O malignant neoplasm of breast Ingrown hair Anxiety GERD (gastroesophageal reflux disease) Hypothyroidism Breast cancer Hirsutism DVT (deep venous thrombosis) (~2011) Kidney stones Tobacco use disorder (08/29/16) 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) Steatosis of liver (03/07/15) Sleep apnea in adult (12/13/14) Seasonal allergic rhinitis (10/29/14) Posttraumatic stress disorder (06/30/14) Depression (05/05/14) Deep vein thrombosis (DVT) of upper extremity (05/05/14) Acquired hypothyroidism (12/17/12) Hypertension Generalized anxiety disorder Kidney stones, calcium oxalate Pyelonephritis Surgical History History of urologic surgery (1991) History of removal of Port-a-Cath (2013) History of ureter stent History of thyroidectomy (~2000) History of third molar tooth extraction Status post tonsillectomy and adenoidectomy (1970) Status post laparoscopic supracervical hysterectomy (~2012) Status post laparoscopic cholecystectomy History of lumpectomy Family History Father CAD (coronary artery disease) Diabetes mellitus Hypertension Mother Hypertension Family/Other Breast cancer Social History household members: spouse Smoking Status: Current every day smoker quit status: has quit before alcohol intake: never Smoking Status: Current every day smoker tobacco type: cigarettes alcohol intake frequency: holidays/special occasions only Substance Use Type: marijuana Exam Initial Vital Signs Initial Vital Signs: Vital Signs Temperature 97.6 F 06/29/23 11:17 Pulse Rate 109 H 06/29/23 11:17 Respiratory Rate 20 06/29/23 11:17 Blood Pressure 166/88 H 06/29/23 11:17 Pulse Oximetry 92 06/29/23 11:17 Oxygen Delivery Method Room Air 06/29/23 11:17 Const: Awake, alert, no acute distress, nontoxic appearing Cardiac: regular rate, regular rhythm RESP: Inspiratory and expiratory wheezes, speaking in complete sentences without dyspnea GI: Atraumatic, soft, left lower quadrant tenderness to deep palpation without rebound or guarding MSK: Atraumatic, full range of motion, pulses equal Skin: Warm, Dry, intact, no rashes Neuro: AO x3, CN II-XII grossly intact, moves all extremities Psych: affect normal, mood normal, not suicidal, not homicidal Course Orders Ordered: ED Orders 06/29/23 11:25 Covid-19 + FLU A/B + RSV - PCR Stat 06/29/23 11:30 CBC Auto Diff [Complete Blood Count AUTO DIFF] Stat CMP [Comprehensive Metabolic Panel] Stat Lipase Stat 06/29/23 11:33 CT abdomen pelvis w con Stat Chest [XR chest 1V] Stat EKG-12 Lead Stat 06/29/23 12:30 Ictotest Urine Stat Urinalysis and Microscopic Stat Urine Culture Stat Discontinued Medications Albuterol/Ipratropium (Albuterol/Ipratropium 3 Ml Ampul) 9 ml INH NOW ONE Stop: 06/29/23 11:35 Last Admin: 06/29/23 11:41 Dose: 9 ml Documented By: YURIDIA Dexamethasone (Dexamethasone 10 Mg/Ml Vial) 10 mg IV NOW ONE Stop: 06/29/23 11:34 Last Admin: 06/29/23 11:40 Dose: 10 mg Documented By: YURIDIA Sodium Chloride (Normal Saline 0.9%) 1,000 mls @ 1,000 mls/hr IV BOLUS ONE Stop: 06/29/23 12:32 Last Admin: 06/29/23 11:41 Dose: 1,000 mls/hr Documented By: YURIDIA Ceftriaxone Sodium 1,000 mg/ (Sodium Chloride) 100 mls @ 200 mls/hr IV NOW ONE Stop: 06/29/23 13:07 Last Admin: 06/29/23 13:14 Dose: 200 mls/hr Documented By: HAM Azithromycin 500 mg/ Dextrose 250 mls @ 250 mls/hr IV NOW ONE Stop: 06/29/23 13:07 Vital Signs Vital signs: Vital Signs - 8 hr 06/29/23 11:17 06/29/23 11:34 06/29/23 11:36 Temperature 97.6 F Pulse Rate 109 H 97 H 97 H Respiratory Rate 20 13 Blood Pressure 166/88 H Pulse Oximetry 92 95 94 Oxygen Delivery Method Room Air Oxygen Flow Rate 06/29/23 11:36 06/29/23 11:50 06/29/23 12:00 Temperature Pulse Rate 98 H 97 H Respiratory Rate 24 14 Blood Pressure 145/89 H Pulse Oximetry 92 99 Oxygen Delivery Method Room Air Oxygen Flow Rate 06/29/23 12:00 06/29/23 12:25 06/29/23 12:25 Temperature Pulse Rate 99 H Respiratory Rate 16 Blood Pressure 145/86 H 149/71 H Pulse Oximetry Oxygen Delivery Method Oxygen Flow Rate 06/29/23 12:30 06/29/23 12:30 06/29/23 13:00 Temperature Pulse Rate 101 H Respiratory Rate 16 Blood Pressure 137/67 128/61 Pulse Oximetry Oxygen Delivery Method Oxygen Flow Rate 06/29/23 13:00 06/29/23 13:07 Temperature Pulse Rate 100 H Respiratory Rate 17 Blood Pressure Pulse Oximetry 87 L 92 Oxygen Delivery Method Nasal Cannula Oxygen Flow Rate 2 MDM - URI/Sore Throat Differential Diagnosis Differential diagnosis: Likely upper respiratory infection, sinusitis and viral infection Lab Data 06/29/23 11:30 06/29/23 11:30 Labs: Lab Results 06/29/23 06/29/23 06/29/23 Range/Units 11:25 11:30 12:30 WBC 7.0 (4.5-11.0) X10^3/uL RBC 5.91 H (4.0-5.2) X10^6/uL Hgb 17.3 H (12.0-16.0) g/dL Hct 51.8 H (36-46) % MCV 87.7 (80-100) fL MCH 29.3 (26-34) PG MCHC 33.4 (30-36) % RDW 13.9 (11.6-14.8) % Plt Count 269 (150-400) X10^3/uL Neut % (Auto) Not Reportable Lymph % (Auto) Not Reportable [place] % (Auto) Not Reportable Eos % (Auto) Not Reportable Baso % (Auto) Not Reportable Lymph # (Auto) Not Reportable [place] # (Auto) Not Reportable Baso # (Auto) Not Reportable Total Counted 100 Seg Neutrophils % 62.0 (38-70) % Band Neutrophils % 10.0 H (3-7) % Lymphocytes % (Manual) 9.0 L (25-45) % Atypical Lymphs % 12.0 H ( - 0) % Monocytes % (Manual) 6.0 (2-11) % Basophils % (Manual) 1.0 (0-1) % Neutrophils # (Manual) 5040 (1907-2625) /uL Smudge Cells 2+ H RBC Morphology See below Stomatocytes 1+ H Rouleaux 1+ H Sodium 139 (137-145) mmol/L Potassium 4.0 (3.4-5.1) mmol/L Chloride 100 (98-107) mmol/L Carbon Dioxide 31 (22-32) mmol/L BUN 10 (7-17) mg/dL Creatinine 0.89 (0.52-1.04) mg/dL Estimated GFR > 60 (>60) mL/min BUN/Creatinine Ratio 11.2 (6-22) Glucose 108 H (70-100) mg/dL Calcium 9.6 (8.4-10.2) mg/dL Total Bilirubin 0.8 (0.2-1.3) mg/dL AST 33 (14-36) IU/L ALT 27 (<35) IU/L Alkaline Phosphatase 63 (38-126) U/L Total Protein 8.8 H (6.3-8.2) g/dL Albumin 4.5 (3.5-5.0) g/dL Globulin 4.3 H (1.7-4.1) g/dL Albumin/Globulin Ratio 1.0 (1.0-2.8) Lipase 117 (23-300) U/L Urine Color Yellow Urine Appearance Clear Urine pH 6.5 (4.5-8.0) Ur Specific [place] 1.020 (1.000-1.035) Urine Protein Negative (Negative) Urine Glucose (UA) Negative (Negative) g/dL Urine Ketones Negative (NEGATIVE) Urine Occult Blood Trace-intact (Negative) Urine Nitrate Negative (Negative) Urine Bilirubin 1+ H (NEGATIVE) Ur Bilirubin Confirm TNP Urine Urobilinogen 1.0 (0.2) E.U./dL Ur Leukocyte Esterase Negative (NEGATIVE) Urine RBC 0-1/hpf (0-5/HPF) Urine WBC 0-1/hpf (0-5/HPF) Ur Squamous Epith Cells 10-30 /hpf H (0-5/HPF) Urine Bacteria Many (>30) H (None) Ur Culture Indicated? Specimen cultured Vol Urine Centrifuged 10ml (spun) SARS-CoV-2 (PCR) Negative (Negative) Influenza A (RT-PCR) Flu a negative (NEGATIVE) Influenza B (RT-PCR) Flu b negative (NEGATIVE) RSV (PCR) Positive A (Negative) Urine Dip Bedside Urine Glucose Negative Bedside Urine Bilirubin + 1 Bedside Urine Ketone - Negative Urine Specific [place] 1.020 Bedside Urine Occult Blood +/- Bedside Urine pH 6.0 Bedside Urine Protein +/- 15 Bedside Urine Urobilinogen - Negative Bedside Urine Nitrite - Negative Bedside Urine Leukocytes - Negative Esterase MDM Narrative Medical decision making narrative: Low O2 saturation recorded at home and patient with COPD and ongoing tobacco abuse. On initial presentation to the emergency department oxygen is 94% on room air, however patient is wheezing on pulmonary exam. Reports allergy to prednisone, we will order Decadron and nebulizers. Due to left lower quadrant pain and diarrhea we will order CT scan to assess for diverticulitis or other acute intra-abdominal pathology. Laboratory work is reviewed, consistent with patient's baseline. Respiratory panel positive for RSV. Chest x-ray negative for acute findings. CT scan negative for acute findings. No explanation for patient's left lower quadrant pain. Patient received nebulizers and IV fluids as well as Decadron, however after nebulizers patient's oxygen saturations dropped into the mid 80s at rest even with good waveform. Patient does not wear oxygen at home. Plan to admit patient to the hospital for additional nebulizers, steroids, respiratory support. Critical Care Time Critical Care Time Critical Care Time: Yes Total Critical Care Time: 33 Attestation: Acute hypoxemic respiratory failure requiring additional oxygen and hospitalization. Discharge Plan Departure Patient Disposition: Admitted as Observation Clinical Impression: Acute exacerbation of chronic obstructive pulmonary disease, Respiratory syncytial virus (RSV) Diarrhea Qualifiers: Diarrhea type: unspecified type Qualified Code(s): R19.7 - Diarrhea, unspecified Admit Date/Time: 06/29/23 13:24 Admit Provider: Jose R Ovalle
[2023-06-29] MEDS: DEXAMETHASONE 10 MG/ML VIAL IV (11:40)
[2023-06-29] MEDS: SODIUM CHLORIDE 0.9% 1,000 ML 1000 ML IV (11:41)
[2023-06-29] MEDS: ALBUTEROL/IPRATROPIUM 3 ML AMPUL 9 ML INH (11:41)
[2023-06-29 11:54] LABS: Add Manual Diff / Slide Review YES; Hematocrit 51.8 % (36-46); Hemoglobin 17.3 g/dL (12.0-16.0); Mean Corpuscular HGB Conc 33.4 % (30-36); Mean Corpuscular Hemoglobin 29.3 PG (26-34); Mean Corpuscular Volume 87.7 fL (80-100); Platelet Count 269 X10^3/uL (150-400); Red Blood Cell Count 5.91 X10^6/uL (4.0-5.2); Red Cell Distribution Width 13.9 % (11.6-14.8)
[2023-06-29 12:00] LABS: Alanine Aminotransferase 27 IU/L (<35); Albumin 4.5 g/dL (3.5-5.0); Alkaline Phosphatase 63 U/L (38-126); Aspartate Aminotransferase 33 IU/L (14-36); BUN Creatinine Ratio 11.2 (6-22); Bilirubin Total 0.8 mg/dL (0.2-1.3); Blood Urea Nitrogen 10 mg/dL (7-17); Calcium 9.6 mg/dL (8.4-10.2); Carbon Dioxide 31 mmol/L (22-32); Chloride 100 mmol/L (98-107); Estimated Glomerular Filt Rate > 60 mL/min (>60); Globulin 4.3 g/dL (1.7-4.1); Glucose 108 mg/dL (70-100); HEMOLYSIS 18 (0-50); Lipase 117 U/L (23-300); Sodium 139 mmol/L (137-145); Total Protein 8.8 g/dL (6.3-8.2)
--- NOTE | 2023-06-29 12:13 | RT ---
pt keo cruz tx well, on room air.
[2023-06-29 12:16] LABS: Influenza A - CEPHEID Flu A NEGATIVE (NEGATIVE); Influenza B - CEPHEID Flu B NEGATIVE (NEGATIVE); Respiratory Syncytial Virus POSITIVE (Negative)
[2023-06-29 12:25] LABS: COVID-19 CEPHEID 4-PLEX PCR Negative (Negative)
[2023-06-29 12:33] LABS: Urine Volume 10mL (spun)
[2023-06-29 12:41] LABS: Neutrophils Absolute Manual 5040 /uL (3000-5900); Total Cells Counted 100
[2023-06-29 12:42] LABS: Rouleaux 1+; Smudge Cells 2+; Stomatocytes 1+
[2023-06-29 12:42] LABS: Appearance Urine UA CLEAR; Bilirubin Urine UA 1+ (NEGATIVE); Color Urine UA YELLOW; Glucose Urine UA NEGATIVE (Negative); Ketones Urine UA NEGATIVE (NEGATIVE); Leukocyte Esterase Urine UA NEGATIVE (NEGATIVE); Nitrite Urine UA NEGATIVE (Negative); Occult Blood Urine UA TRACE-INTACT (Negative); Protein Urine UA NEGATIVE (Negative); pH Urine UA 6.5 (4.5-8.0)
[2023-06-29 12:57] LABS: Bacteria Urine Many (>30); Culture Indicated Urine Specimen Cultured; RBC Urine 0-1/HPF (0-5/HPF); Squamous Epithelial Cell Urine 10-30 /HPF (0-5/HPF); WBC Urine 0-1/HPF (0-5/HPF)
--- NOTE | 2023-06-29 13:07 | PC.NURSE ---
Pt placed on 2l NC O2 per Dr Romero RA sat dropping to 90%
[2023-06-29] MEDS: cefTRIAXone 1,000 MG in SODIUM CHLORIDE 0.9% 100 ML 200 MG IV (13:14)
[2023-06-29] MEDS: AZITHROMYCIN 500 MG in DEXTROSE 5% IN WATER 250 ML 250 MG IV (14:10)
--- NOTE | 2023-06-29 14:39 | PC.NURSE ---
Pt went up to acute care with azithromycin running 250ml @ 250ml/hr.
--- NOTE | 2023-06-29 15:54 | PC.NURSE ---
Pt arrived from ED on stretcher at 1445, ambulated SBA to bathroom and then to bed. A&Ox4, VSS on 2L NC, c/o SOB and chest tightness but no pain. Lung sounds diminished and tight with inspiratory and expiratory wheezes, and fine crackles. Bowel sounds present, c/o diarrhea x5 days. Pt oriented to room and call light. Pt now resting comfortably, bed in low position, call light within reach.
[2023-06-29] MEDS: methylPREDNISolone 125 MG/2 ML VIAL 80 MG IV (18:40)
[2023-06-29] MEDS: ONDANSETRON 4 MG/2 ML INJ IV (18:41)
--- NOTE | 2023-06-29 18:45 | P.HP_ITS ---
History of Present Illness History of Present Illness Date Patient Seen: 06/29/23 Time Patient Seen: 18:45 Chief complaint: low oxygen, flu symptoms n/v/d Narrative: 57-year-old female with longstanding history of smoking and known COPD who presented to the emergency department today with increasing cough and noticed low oximetry readings (as low as 84%) at home. She feels like she has had a viral syndrome of some sort and feels somewhat dehydrated. She does have a home nebulizer using this without consistent relief of symptoms She was also had some very loose stool and maybe some left lower quadrant symptoms ER evaluation was remarkable for the mild hypoxia as well as serology for RSV. She had normal chemistries, normal white blood cell count. Normal chest x-ray as well as abdominal pelvic CT scan She received IV steroids as well as nebulizer treatments in the emergency department and while this symptomatically improved her she was still quite symptomatic as well as hypoxic and was elected to admit her for ongoing therapy [facility] [place] Medical History Breast calcification, left Moderate COPD (chronic obstructive pulmonary disease) Left retinal embolus Hyperlipidemia Prediabetes Osteoarthritis of spine with radiculopathy, cervical region (02/20/16) Arthropathy of cervical facet joint (02/20/16) Internal hemorrhoids (08/17/15) Kidney stone on left side Anesthesia complication COPD (chronic obstructive pulmonary disease) Medical marijuana use Current every day smoker Acute exacerbation of chronic obstructive pulmonary disease (COPD) Cyst of breast, right, solitary Intramural leiomyoma of uterus Insomnia H/O malignant neoplasm of breast Ingrown hair Anxiety GERD (gastroesophageal reflux disease) Hypothyroidism Breast cancer Hirsutism DVT (deep venous thrombosis) (~2011) Kidney stones Tobacco use disorder (08/29/16) 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) Steatosis of liver (03/07/15) Sleep apnea in adult (12/13/14) Seasonal allergic rhinitis (10/29/14) Posttraumatic stress disorder (06/30/14) Depression (05/05/14) Deep vein thrombosis (DVT) of upper extremity (05/05/14) Acquired hypothyroidism (12/17/12) Hypertension Generalized anxiety disorder Kidney stones, calcium oxalate Pyelonephritis Surgical History History of urologic surgery (1991) History of removal of Port-a-Cath (2013) History of ureter stent History of thyroidectomy (~2000) History of third molar tooth extraction Status post tonsillectomy and adenoidectomy (1970) Status post laparoscopic supracervical hysterectomy (~2012) Status post laparoscopic cholecystectomy History of lumpectomy Family History Father CAD (coronary artery disease) Diabetes mellitus Hypertension Mother Hypertension Family/Other Breast cancer Social History household members: spouse Smoking Status: Current every day smoker quit status: has quit before alcohol intake: never Meds Home Medications and Allergies Home Medications Medication Instructions Recorded Confirmed Type amlodipine 10 mg tablet 10 mg PO DAILY 02/02/22 06/29/23 History clonazepam 1 mg tablet 1 mg PO TID 02/02/22 06/29/23 History melatonin 3 mg tablet 3 mg PO BEDTIME PRN Sleep 02/02/22 06/29/23 History venlafaxine 75 mg tablet 150 mg PO DAILY 02/02/22 06/29/23 History levothyroxine 88 mcg tablet 88 mcg DAILY 02/13/22 06/29/23 History doxepin 25 mg capsule 25 mg PO BEDTIME #30 caps 07/02/22 06/29/23 Rx metoprolol tartrate 50 mg tablet 50 mg PO BID #180 tabs 07/11/22 06/29/23 Rx albuterol sulfate 2.5 mg/3 mL 2.5 mg (3 mL) inhalation Q4-6H PRN 06/30/23 Rx (0.083 %) solution for nebulization wheezing #180 mL methylprednisolone 4 mg tablets in See Rx Instructions PO .COMPLEX 06/30/23 Rx a dose pack #21 ea Allergies Allergy/AdvReac Type Severity Reaction Status Date / Time prednisone AdvReac Severe Agitated Verified 03/19/22 15:09 zolpidem [From Ambien] AdvReac Unknown Insomnia Verified 03/19/22 15:09 Review of Systems Review of Systems ROS: Yes All systems reviewed with the patient and are negative except as otherwise documented Exam Vital Signs (past 8 hours): - 06/29/23 11:17 06/29/23 11:34 06/29/23 11:36 Temperature 97.6 F Pulse Rate 109 H 97 H 97 H Respiratory Rate 20 13 Blood Pressure 166/88 H Pulse Oximetry 92 95 94 Oxygen Delivery Method Room Air Oxygen Flow Rate 06/29/23 11:36 06/29/23 11:50 06/29/23 12:00 Temperature Pulse Rate 98 H 97 H Respiratory Rate 24 14 Blood Pressure 145/89 H Pulse Oximetry 92 99 Oxygen Delivery Method Room Air Oxygen Flow Rate 06/29/23 12:00 06/29/23 12:25 06/29/23 12:25 Temperature Pulse Rate 99 H Respiratory Rate 16 Blood Pressure 145/86 H 149/71 H Pulse Oximetry Oxygen Delivery Method Oxygen Flow Rate 06/29/23 12:30 06/29/23 12:30 06/29/23 13:00 Temperature Pulse Rate 101 H Respiratory Rate 16 Blood Pressure 137/67 128/61 Pulse Oximetry Oxygen Delivery Method Oxygen Flow Rate 06/29/23 13:00 06/29/23 13:07 06/29/23 13:30 Temperature Pulse Rate 100 H 98 H Respiratory Rate 17 24 Blood Pressure Pulse Oximetry 87 L 92 95 Oxygen Delivery Method Nasal Cannula Oxygen Flow Rate 2 06/29/23 13:30 06/29/23 13:55 06/29/23 13:55 Temperature Pulse Rate 101 H Respiratory Rate 14 Blood Pressure 138/77 154/77 H Pulse Oximetry 95 Oxygen Delivery Method Oxygen Flow Rate 06/29/23 14:00 06/29/23 14:00 06/29/23 14:30 Temperature Pulse Rate 98 H 98 H Respiratory Rate 16 16 Blood Pressure 154/72 H Pulse Oximetry 95 97 Oxygen Delivery Method Oxygen Flow Rate 06/29/23 14:30 06/29/23 15:51 06/29/23 15:51 Temperature 96.4 F L Pulse Rate 111 H Respiratory Rate 18 Blood Pressure 146/76 H 157/88 H Pulse Oximetry 93 Oxygen Delivery Method Nasal Cannula Oxygen Flow Rate 2 06/29/23 17:17 Temperature Pulse Rate 98 H Respiratory Rate Blood Pressure Pulse Oximetry 96 Oxygen Delivery Method Oxygen Flow Rate 2 Oxygen Delivery Method Nasal Cannula Oxygen Flow Rate 2 Narrative Exam Narrative: Middle-aged female in no obvious distress sitting in hospital bed watching television with oxygen in place HEENT-unremarkable Lungs-good breath sounds no wheezes no crackles (surprisingly) Heart-regular rate and rhythm Abdomen-positive bowel tones soft nontender nondistended Extremities-no cyanosis clubbing or edema Neuro-alert oriented x3 no cranial nerve defects, gait not tested, no focal findings Objective Labs 06/29/23 11:30 06/29/23 11:30 Labs: Laboratory Results - last 24 hr 06/29/23 06/29/23 06/29/23 11:25 11:30 12:30 WBC 7.0 RBC 5.91 H Hgb 17.3 H Hct 51.8 H MCV 87.7 MCH 29.3 MCHC 33.4 RDW 13.9 Plt Count 269 Neut % (Auto) Not Reportable Lymph % (Auto) Not Reportable [place] % (Auto) Not Reportable Eos % (Auto) Not Reportable Baso % (Auto) Not Reportable Lymph # (Auto) Not Reportable [place] # (Auto) Not Reportable Baso # (Auto) Not Reportable Total Counted 100 Seg Neutrophils % 62.0 Band Neutrophils % 10.0 H Lymphocytes % (Manual) 9.0 L Atypical Lymphs % 12.0 H Monocytes % (Manual) 6.0 Basophils % (Manual) 1.0 Neutrophils # (Manual) 5040 Smudge Cells 2+ H RBC Morphology See below Stomatocytes 1+ H Rouleaux 1+ H Sodium 139 Potassium 4.0 Chloride 100 Carbon Dioxide 31 BUN 10 Creatinine 0.89 Estimated GFR > 60 BUN/Creatinine Ratio 11.2 Glucose 108 H Calcium 9.6 Total Bilirubin 0.8 AST 33 ALT 27 Alkaline Phosphatase 63 Total Protein 8.8 H Albumin 4.5 Globulin 4.3 H Albumin/Globulin Ratio 1.0 Lipase 117 Urine Color Yellow Urine Appearance Clear Urine pH 6.5 Ur Specific [place] 1.020 Urine Protein Negative Urine Glucose (UA) Negative Urine Ketones Negative Urine Occult Blood Trace-intact Urine Nitrate Negative Urine Bilirubin 1+ H Ur Bilirubin Confirm TNP Urine Urobilinogen 1.0 Ur Leukocyte Esterase Negative Urine RBC 0-1/hpf Urine WBC 0-1/hpf Ur Squamous Epith Cells 10-30 /hpf H Urine Bacteria Many (>30) H Ur Culture Indicated? Specimen cultured Vol Urine Centrifuged 10ml (spun) SARS-CoV-2 (PCR) Negative Influenza A (RT-PCR) Flu a negative Influenza B (RT-PCR) Flu b negative RSV (PCR) Positive A Assessment & Plan Assessment & Plan narrative: 1. RSV pneumonia-patient minimally hypoxic probably a combination of her pneumonic process as well as her underlying chronic lung disease. Continue with supportive care with oxygen and treatment of her underlying lung disease. Antipyretics as necessary for fever etcetera 2. COPD exacerbation-patient's underlying COPD and clear exacerbation based on clinical exam evaluation today. I think she would benefit from parental corticosteroids as well as frequent nebulizer treatments. She also benefit from cigarette smoking cessation in the long run. Patient probably needs further evaluation of her underlying lung disease went back to baseline including consideration of more aggressive treatment with an oral/inhaled corticosteroid as well as repeat PFTs etcetera. 3. Diarrhea-perhaps this is secondary to the RSV as well. No evidence of any active process. Lab work including her LFTs unremarkable. If persists here anticipate further workup was stool studies etcetera. Last PFTs appear to be June 2021 so 2 years old. 4. Anxiety-patient with significant anxiety on multiple medications for same. Continue her clonazepam and venlafaxine for now. 5. Insomnia-patient with significant insomnia using melatonin doxepin and also on clonazepam for anxiety. These are multiple potentially respiratory sedating medications I am hesitant to prescribe them altogether specially in the setting of COPD exacerbation. I am okay with melatonin, and the clonazepam (because of the anxiety), as well as her long-term use of same. Would recommend re- evaluation of her chronic meds as an outpatient sent 6. VTE prophylaxis-SCDs and chemo prophylaxis with Lovenox 7. Code status-patient requests and is appropriate for full code in the event of a sudden cardiac or respiratory arrest which is not at all anticipated at this point. 8. Hypertension-patient on metoprolol chronically for hypertension. Blood pressure is excellent at the current time. I am going to continue the metoprolol but slightly lower dose given her COPD exacerbation, over my concerns about it exacerbating her chronic lung disease as well I anticipate 24-72 hours of hospitalization with the above interventions. Once she has relief of clinical symptoms to some degree and no longer has an oxygen requirement she can likely be discharged home on a steroid taper
[2023-06-29] MEDS: clonazePAM 0.5 MG TABLET 1 MG PO ×2 (19:00→22:20)
[2023-06-29] MEDS: METOPROLOL IR 50 MG TABLET 25 MG PO (20:47)
[2023-06-29] MEDS: MELATONIN 3 MG TABLET PO (20:50)
[2023-06-29] MEDS: ALBUTEROL 2.5 MG/3 ML NEB (ADULT) INH (21:43)
[2023-06-30] MEDS: methylPREDNISolone 125 MG/2 ML VIAL 80 MG IV ×2 (00:50→05:14)
[2023-06-30 04:15] VITALS: BP 137/84; PULSE 80; RESP 18; TEMP 37.2; O2SAT 94
[2023-06-30] MEDS: LEVOTHYROXINE 88 MCG TABLET PO (05:13)
[2023-06-30] MEDS: ONDANSETRON 4 MG/2 ML INJ IV (05:13)
[2023-06-30 07:00] VITALS: O2SAT 93
[2023-06-30 07:30] VITALS: BP 137/83; PULSE 96; RESP 16; TEMP 36.6; O2SAT 93
[2023-06-30] MEDS: AMLODIPINE 5 MG TABLET 10 MG PO (08:23)
[2023-06-30] MEDS: VENLAFAXINE 37.5 MG TABLET 150 MG PO (08:24)
[2023-06-30] MEDS: METOPROLOL IR 50 MG TABLET 25 MG PO (08:24)
--- NOTE | 2023-06-30 10:54 | PM.DS.1 ---
History of Present Illness History of Present Illness Date Patient Seen: 06/30/23 Time Patient Seen: 10:54 Chief complaint: low oxygen, flu symptoms n/v/d Narrative: 57-year-old female with longstanding history of smoking and known COPD who presented to the emergency department today with increasing cough and noticed low oximetry readings (as low as 84%) at home. She feels like she has had a viral syndrome of some sort and feels somewhat dehydrated. She does have a home nebulizer using this without consistent relief of symptoms She was also had some very loose stool and maybe some left lower quadrant symptoms ER evaluation was remarkable for the mild hypoxia as well as serology for RSV. She had normal chemistries, normal white blood cell count. Normal chest x-ray as well as abdominal pelvic CT scan She received IV steroids as well as nebulizer treatments in the emergency department and while this symptomatically improved her she was still quite symptomatic as well as hypoxic and was elected to admit her for ongoing therapy Discharge Providers Provider Date of admission: 06/29/23 13:24 Discharge Date: 06/30/23 Primary care physician: Emmanuel Ribeiro MD Consults: 06/29/23 15:51 Consult to Cardio/Pulmonary Rehabilitation Routine Comment: Physician Instructions: Evaluate and treat Discharge provider: Jose R Ovalle MD Summary Hospital Course Discharge Diagnosis: 1. RSV pneumonia 2. COPD exacerbation 3. Acute probable infectious diarrhea, resolved 4. Insomnia 5. Hyperlipidemia 6. Hypertension 7. Osteoarthritis of cervical spine 8. Hypothyroidism on replacement 9. Anxiety/PTSD Hospital Course: Patient was admitted to the hospital as above. With frequent nebulizers several doses of parental steroids and time patient improved significantly. There maybe in an element of mild volume depletion which was corrected with IV fluids in the ER as well. Patient rapidly improved and was able to maintain her oxygen saturation at 90-92% on room air even with activity. She felt tremendously better. Her abdominal symptoms including diarrhea did not returned. Therefore patient felt like she was appropriate for discharge and I felt as though this was true. Patient will continue with a tapering steroid course as an outpatient. Patient needs no other specific intervention. Patient will need follow up with her PCP in the next 2 weeks Exam Vital Signs (past 8 hours): - 06/30/23 04:15 06/30/23 07:00 06/30/23 07:30 Temperature 99.0 F 97.8 F Pulse Rate 80 96 H Respiratory Rate 18 16 Blood Pressure 137/84 137/83 Pulse Oximetry 94 93 93 Oxygen Delivery Method Room Air Oxygen Flow Rate 2 0 06/30/23 08:15 Temperature Pulse Rate Respiratory Rate Blood Pressure Pulse Oximetry Oxygen Delivery Method Room Air Oxygen Flow Rate Oxygen Delivery Method Room Air Oxygen Flow Rate 0 Objective Labs 06/29/23 11:30 06/29/23 11:30 Labs: Laboratory Results - last 24 hr 06/29/23 06/29/23 06/29/23 11:25 11:30 12:30 WBC 7.0 RBC 5.91 H Hgb 17.3 H Hct 51.8 H MCV 87.7 MCH 29.3 MCHC 33.4 RDW 13.9 Plt Count 269 Neut % (Auto) Not Reportable Lymph % (Auto) Not Reportable [place] % (Auto) Not Reportable Eos % (Auto) Not Reportable Baso % (Auto) Not Reportable Lymph # (Auto) Not Reportable [place] # (Auto) Not Reportable Baso # (Auto) Not Reportable Total Counted 100 Seg Neutrophils % 62.0 Band Neutrophils % 10.0 H Lymphocytes % (Manual) 9.0 L Atypical Lymphs % 12.0 H Monocytes % (Manual) 6.0 Basophils % (Manual) 1.0 Neutrophils # (Manual) 5040 Smudge Cells 2+ H RBC Morphology See below Stomatocytes 1+ H Rouleaux 1+ H Sodium 139 Potassium 4.0 Chloride 100 Carbon Dioxide 31 BUN 10 Creatinine 0.89 Estimated GFR > 60 BUN/Creatinine Ratio 11.2 Glucose 108 H Calcium 9.6 Total Bilirubin 0.8 AST 33 ALT 27 Alkaline Phosphatase 63 Total Protein 8.8 H Albumin 4.5 Globulin 4.3 H Albumin/Globulin Ratio 1.0 Lipase 117 Urine Color Yellow Urine Appearance Clear Urine pH 6.5 Ur Specific [place] 1.020 Urine Protein Negative Urine Glucose (UA) Negative Urine Ketones Negative Urine Occult Blood Trace-intact Urine Nitrate Negative Urine Bilirubin 1+ H Ur Bilirubin Confirm TNP Urine Urobilinogen 1.0 Ur Leukocyte Esterase Negative Urine RBC 0-1/hpf Urine WBC 0-1/hpf Ur Squamous Epith Cells 10-30 /hpf H Urine Bacteria Many (>30) H Ur Culture Indicated? Specimen cultured Vol Urine Centrifuged 10ml (spun) SARS-CoV-2 (PCR) Negative Influenza A (RT-PCR) Flu a negative Influenza B (RT-PCR) Flu b negative RSV (PCR) Positive A [facility] Medical History Breast calcification, left Moderate COPD (chronic obstructive pulmonary disease) Left retinal embolus Hyperlipidemia Prediabetes Osteoarthritis of spine with radiculopathy, cervical region (02/20/16) Arthropathy of cervical facet joint (02/20/16) Internal hemorrhoids (08/17/15) Kidney stone on left side Anesthesia complication COPD (chronic obstructive pulmonary disease) Medical marijuana use Current every day smoker Acute exacerbation of chronic obstructive pulmonary disease (COPD) Cyst of breast, right, solitary Intramural leiomyoma of uterus Insomnia H/O malignant neoplasm of breast Ingrown hair Anxiety GERD (gastroesophageal reflux disease) Hypothyroidism Breast cancer Hirsutism DVT (deep venous thrombosis) (~2011) Kidney stones Tobacco use disorder (08/29/16) 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) Steatosis of liver (03/07/15) Sleep apnea in adult (12/13/14) Seasonal allergic rhinitis (10/29/14) Posttraumatic stress disorder (06/30/14) Depression (05/05/14) Deep vein thrombosis (DVT) of upper extremity (05/05/14) Acquired hypothyroidism (12/17/12) Hypertension Generalized anxiety disorder Kidney stones, calcium oxalate Pyelonephritis Surgical History History of urologic surgery (1991) History of removal of Port-a-Cath (2013) History of ureter stent History of thyroidectomy (~2000) History of third molar tooth extraction Status post tonsillectomy and adenoidectomy (1970) Status post laparoscopic supracervical hysterectomy (~2012) Status post laparoscopic cholecystectomy History of lumpectomy Family History Father CAD (coronary artery disease) Diabetes mellitus Hypertension Mother Hypertension Family/Other Breast cancer Social History household members: spouse Smoking Status: Current every day smoker quit status: has quit before alcohol intake: never Discharge Assessment & Plan Assessment and Plan Plan of Treatment: Discharge home with a Medrol Dosepak for tapering steroid course. Patient may also use her home nebulizer albuterol as needed. Patient needs to be seen by her PCP within the next couple of weeks. She is strongly admonished to discontinue smoking altogether. In addition maybe appropriate to repeat PFTs and consider additional long-term therapy such as inhaled bronchodilator/corticosteroid for better control of her underlying lung disease In addition patient on multiple sedating medications at night with chronic lung disease raising some concern about continuation of all these medicines together. They were continued at discharge but discussion regarding feasibility of tapering and or discontinuing some portion such as the doxepin would be an appropriate discussion to be held as well Discharge Plan Discharge Plan Patient Disposition: Home Discharge orders & Medications Prescriptions: New methylprednisolone 4 mg tablets,dose pack See Rx Instructions .ROUTE .COMPLEX Qty: 21 0RF Rx Instructions: orally per package directions albuterol sulfate 2.5 mg /3 mL (0.083 %) solution for nebulization 2.5 mg inhalation Q4-6H PRN (Reason: wheezing) Qty: 180 0RF Continued doxepin 25 mg capsule 25 mg PO BEDTIME Qty: 30 3RF Hold Instructions: ESTABLISHED W/ NEW PROVIDER metoprolol tartrate 50 mg tablet 50 mg PO BID Qty: 180 0RF Hold Instructions: ESTABLISHED W/ NEW PROVIDER Rx Instructions: APPOINTMENT NEEDED FOR FURTHER REFILLS. 07/11/22 venlafaxine 75 mg Tablet 150 mg PO DAILY Hold Instructions: ESTABLISHED W/ NEW PROVIDER clonazepam 1 mg Tablet 1 mg PO TID Hold Instructions: ESTABLISHED W/ NEW PROVIDER melatonin 3 mg Tablet 3 mg PO BEDTIME PRN (Reason: Sleep) Hold Instructions: ESTABLISHED W/ NEW PROVIDER amlodipine 10 mg Tablet 10 mg PO DAILY Hold Instructions: ESTABLISHED W/ NEW PROVIDER levothyroxine 88 mcg tablet 88 mcg DAILY Hold Instructions: ESTABLISHED W/ NEW PROVIDER Patient Comments: TAKE 1 TABLET BY MOUTH DAILY Follow up/Referrals: Emmanuel Ribeiro MD [Primary Care Provider] - 2 Weeks Discharge Health Status Multidrug resistant organism: No MDRO Diet/Activity/Treatments Diet: Diet as Tolerated Skin/Wound/Dressing Care Report to your healthcare provider any signs of infection, such as:: chills, fever Visit Report/Discharge Packet Stand Alone Forms: Patient Portal/API Discharge Data Primary Care Provider: Emmanuel Ribeiro Attending Provider: Jose R Ovalle Admit Date/Time: 06/29/23 13:24
--- NOTE | 2023-06-30 11:41 | CM.DANOTE ---
Initial DCP Assessment Visit Note Reviewed EMR and team rounds for pt's medical status and anticipated d/c needs. Met with pt/dtr at bedside to introduce self and role. Pt found to be awake, dressed, and ready to return home. Pt is now on room air, states feeling much better since coming to the ED last evening. Dtr will transport home once d/c forms are ready to be signed. No further needs for DCP identified at this time. Payor: Erum Sherwood PCP: Dr. Ribeiro Pt is a 57 year-old F with a PMH significant for chronic smoking and known COPD presented to ED last evening (06/29/23) with worsening cough, shortness of breath, and decreasing O2 sats, despite trying her nebulizer treatments. ED eval showed mild hypoxia and new RSV+ status. Pt was started on IV fluids/steroids/ABO's and continued to be symptomatic, so was placed in OBS bed for further treatment. Pt is now no longer symptomatic and is medically cleared for home d/c, likely before noon today. Discharge Planning/Care Management CM Discharge Assessment Start: 06/30/23 11:39 Freq: Status: Active Protocol: Document 06/30/23 11:39 DPL (Rec: 06/30/23 11:41 DPL [id number]) Discharge Planning Assessment Assigned [employer] NATALY Vargas Advance Directives? No History Provided By Patient,Medical Record Has Patient been admitted in last 30 No days? Prior Living Arrangements House Household Members spouse Type of transporation used prior to Drives own vehicle admit Independent with ADL's Yes Is patient alert and oriented? Yes Caregiver for Another No DME Already Rented / Owned Nebulizer Comment No anticipated d/c needs identified at this time. Barriers to Discharge No Discharge Plan Home Transportation Arrangement Dtr Referrals Initiated None needed Whiteboard Updated in Patient Room with Yes name and ext. # of [employer] Review Status In Process Please Provide Date Initial DC 06/30/23 Assessment Was Performed
--- NOTE | 2023-06-30 12:42 | PC.NURSE ---
Pt discharged home at 1230, escorted off floor in wheelchair accompanied by hospital staff. IV removed, discharge teaching provided including follow up appointments, new medications and worsening symptoms. Questions answered and concerns addressed. Patient left the room with all belongings.
== END 2023-06-30 12:44 | disposition home or self-care (01) ==
LOC: ED 13:15 → AC 13:25
PROVIDERS: Admitting Provider Internal Medicine; Emergency Provider Emergency Medicine; PCP Family Medicine; Referring Provider Emergency Medicine; Visit Provider Internal Medicine
DX: J96.01 Acute respiratory failure with hypoxia (principal); J12.1 Respiratory syncytial virus pneumonia; J44.1 Chronic obstructive pulmonary disease with (acute) exacerbation; R19.7 Diarrhea, unspecified; F41.9 Anxiety disorder, unspecified; G47.00 Insomnia, unspecified; I10 Essential (primary) hypertension; F17.210 Nicotine dependence, cigarettes, uncomplicated
CPT/HCPCS: 0241U; 36415; 71045; 74177; 80053; 81001; 81003; 83690; 85007; 85025; 87086; 94640; 94760; 94762; 96365; 96367; 96375; 96376; 99222; 99238; 99285; 99291; G0378; J0696; J1100; J1650; J2405; J2930; J7613; Q9967

== ENCOUNTER → 2023-08-10 08:21 | Outpatient (CLI) | payer OTHER, SELFPAY ==
[2023-06-29 15:51] VITALS: BMI 28.2
--- NOTE | 2023-08-10 | DI.MG.S_ITS ---
BILATERAL DIGITAL SCREENING MAMMOGRAM 3D/2D WITH CAD: 08/10/2023 CLINICAL: Routine screening. Personal history of left breast cancer. Family history of breast cancer. Comparison is made to exams dated: 12/26/2021 mammogram, 08/16/2020 mammogram, and 12/22/2019 mammogram - [facility]. Both breasts are almost entirely fatty (category a/<25% glandular tissue). Current study was also evaluated with a Computer Aided Detection (CAD) system. There is a biopsy clip in the right breast. There also are benign post operative findings in the left breast. No significant masses, calcifications, or other findings are seen in either breast. IMPRESSION: BENIGN There is no mammographic evidence of malignancy. A 1 year screening mammogram is recommended. This exam was interpreted at Station ID: [id number]. NOTE: For mammograms, a report in lay terms will be sent to the patient. Approximately 15% of breast malignancies will not be visualized mammographically. In the management of a palpable breast mass, a negative mammogram must not discourage biopsy of a clinically suspicious lesion. Electronically Signed By: Madhu davis/jeny:08/12/2023 08:07:38 letter sent: Normal Exam ACR BI-RADS Category 2: Benign Finding(s) 3342F
== END ==
LOC: MAMMO 08:22
PROVIDERS: PCP Family Medicine; Referring Provider Family Medicine; Visit Provider Family Medicine
DX: Z12.31 Encounter for screening mammogram for malignant neoplasm of breast (principal); Z85.3 Personal history of malignant neoplasm of breast; Z80.3 Family history of malignant neoplasm of breast
CPT/HCPCS: 77063; 77067

== ENCOUNTER → 2024-04-15 07:11 | Outpatient (CLI) | payer OTHER, SELFPAY ==
[2023-06-29 15:51] VITALS: BMI 28.2
--- NOTE | 2024-04-15 | DI.US.S_ITS ---
PROCEDURE: US SOFT TISSUE HEAD AND NECK INDICATIONS: SOFT TISSUE MASS TECHNIQUE: Real-time scanning was performed of the neck region of interest, with image documentation. Color Doppler was also utilized. COMPARISON: None. FINDINGS: Scanning is performed at the area of clinical concern. There is a focus of fat seen within this region, which does not appear well capsulated. This focus of fat moves with respiration. No masses, enlarged lymph nodes, fluid collections, or abnormal vascularity can be seen. IMPRESSION: No significant abnormality can be seen at the site of clinical concern. No masses or enlarged lymph nodes are seen. The palpable abnormality appears to correspond to a focus of fat, which moves with respiration. This may be related to a benign lipoma, although it does not appear well capsulated. If it would be helpful for clinical management decision making in this patient with this given history, please consider a dedicated soft tissue protocol neck CT (with IV contrast) for further evaluation. Dictated by: Harpal Yang M.D. on 04/15/2024 at 9:36 Approved by: Harpal Yang M.D. on 04/15/2024 at 9:38
== END ==
PROVIDERS: PCP Family Medicine; Referring Provider Family Medicine; Visit Provider Family Medicine
DX: M79.89 Other specified soft tissue disorders (principal)
CPT/HCPCS: 76536

== ENCOUNTER → 2024-04-21 07:02 | Outpatient (CLI) | payer OTHER, SELFPAY ==
[2023-06-29 15:51] VITALS: BMI 28.2
--- NOTE | 2024-04-21 07:04 | DI.CT.S_ITS ---
PROCEDURE: CT SOFT TISSUE NECK W CON INDICATIONS: SOFT TISSUE MASS,CERVICAL RADICULOPATHY TECHNIQUE: After the administration of intravenous contrast, 3.0 mm axial sections acquired from the sella to the aortic arch. Additional oblique axial 3.0 mm sections acquired through the pharynx. 3 mm thick coronal and sagittal reformats were generated. For radiation dose reduction, the following was used: automated exposure control. COMPARISON: [facility], CT, CT ANGIO CHEST PE PROTOCOL, 04/20/2021, 11:00. FINDINGS: Image quality: Excellent. Lymph nodes: No enlarged lymph nodes seen throughout the neck. Vessels: Visualized vasculature appears patent. Dilatation of the ascending thoracic aorta measuring 4.6 cm. Neck spaces: Markers are seen along the right neck. The oropharynx, nasopharynx, and pharynx demonstrate no mucosal lesions. The vocal cords, false vocal cords, pyriform sinuses, epiglottis, vallecula, and tongue base all appear normal. Extramucosal spaces appear unremarkable. Glands: The parotid and submandibular glands appear normal. Thyroid gland is not well seen, atrophic versus absent. Miscellaneous: Visualized brain and orbits appear normal. Patchy areas of ground-glass opacity are noted at the right apex.. Superficial soft tissues appear normal. Bones: No suspicious bony lesions. Visualized sinuses and mastoids appear unremarkable. IMPRESSION: Markers are seen on the right neck indicating the area of concern. No abnormalities are seen deep to these markers. No enlarged cervical lymph nodes or masses are identified. Patchy areas of ground-glass opacities are noted in the right apex. These may be infectious or inflammatory in etiology. Recommend follow-up chest CT in 3 months to ensure resolution. Dilatation of the visualized ascending thoracic aorta measuring 4.6 cm, this previously measured approximately 4.3 cm on 04/20/2021 scan. Further evaluation with dedicated CT chest can be obtained. Dictated by: Jovanni Harley M.D. on 04/21/2024 at 10:00 Approved by: Jovanni Harley M.D. on 04/21/2024 at 10:09
[2024-04-21 08:04] LABS: Estimated Glomerular Filt Rate > 60 mL/min (>60)
== END ==
PROVIDERS: Radiology Diagnostic Radiology; PCP Family Medicine; Referring Provider Family Medicine; Visit Provider Family Medicine
DX: M79.89 Other specified soft tissue disorders (principal); M54.12 Radiculopathy, cervical region; I77.810 Thoracic aortic ectasia
CPT/HCPCS: 36415; 70491; 82565; Q9967

== ENCOUNTER → 2024-12-08 11:03 | Outpatient (CLI) | payer BC, SELFPAY ==
[2023-06-29 15:51] VITALS: BMI 28.2
--- NOTE | 2024-12-08 11:07 | DI.MG.S_ITS ---
MM screening mammo BI: 12/08/2024. BI-RADS: 2 CLINICAL: 59-year old female for bilateral screening mammogram. No Tyrer-Cuzick risk score calculation due to the patient's personal history of breast cancer. Patient reports a history of left breast carcinoma diagnosed at age 49. Status-post left lumpectomy with radiation therapy and chemotherapy. No first-degree family history of breast cancer. Current reported family history of breast cancer: paternal aunt. The patient had prior bilateral breast biopsies. PRIOR EXAMS 08/10/2023, 12/26/2021, 08/16/2020, 12/22/2019. MAMMOGRAPHY TECHNIQUE: 2D and 3D (tomosynthesis) digital mammographic views obtained, with additional images as needed for full coverage. Current study was also evaluated with a Computer Aided Detection (CAD) system. DENSITY B. There are scattered areas of fibroglandular density. MAMMOGRAPHY FINDINGS Right: There are no suspicious masses, calcifications, or other findings in the breast. No significant change from comparison. Left: Benign-appearing post-surgical changes noted on the left. There are no suspicious masses, calcifications, or other findings in the breast. No significant change from comparison. IMPRESSION: * No evidence of malignancy with benign findings. RECOMMENDATIONS Bilateral * Annual screening mammography. OVERALL ASSESSMENT CATEGORY BI-RADS-2: Benign. The [employer] recommends annual screening mammography beginning at age 40 for women with average risk of breast cancer. ELECTRONICALLY SIGNED: Zander Serrato M.D. on 12/08/2024 at 01:07:39 PM PT
== END ==
PROVIDERS: PCP Family Medicine; Referring Provider Family Medicine; Visit Provider Family Medicine
DX: Z12.31 Encounter for screening mammogram for malignant neoplasm of breast (principal); Z85.3 Personal history of malignant neoplasm of breast; Z80.3 Family history of malignant neoplasm of breast
CPT/HCPCS: 77063; 77067

== ENCOUNTER → 2025-04-22 11:09 | Outpatient (CLI) | payer BC, SELFPAY ==
[2023-06-29 15:51] VITALS: BMI 28.2
--- NOTE | 2025-04-22 11:11 | DI.RAD.S_ITS ---
PROCEDURE: XR CHEST 2V INDICATIONS: COUGH TECHNIQUE: 2 views of the chest were acquired. COMPARISON: [facility], CR, XR CHEST 1V, 06/29/2023, 11:45. FINDINGS: Surgical changes and devices: None. Lungs and pleura: Lungs are clear. No pleural effusions or pneumothorax. Mediastinum: Mediastinal contours are normal. Heart size is normal. Bones and chest wall: No suspicious bony abnormalities. Soft tissues appear unremarkable. IMPRESSION: No acute cardiopulmonary pathology. Dictated by: Eugene Khalil M.D. on 04/22/2025 at 20:42 Approved by: Eugene Khalil M.D. on 04/22/2025 at 20:42
== END ==
PROVIDERS: PCP Family Medicine; Referring Provider Family Medicine; Visit Provider Family Medicine
DX: R05.9 Cough, unspecified (principal)
CPT/HCPCS: 71046